=== PATIENT | male | born 1935 | race Caucasian/White ===

== ENCOUNTER 2016-02-19 10:41 | Inpatient (IN) | payer MEDICARE, OTHER ==
[2016-02-19] VITALS (29 sets, daily range): BP systolic 66–136; BP diastolic 33–106
[~2016-02-19] VITALS: Ht 170.2 cm; Wt 62.4 kg
[2016-02-19 11:08] LABS: BASO % 0.3 % (0.0-1.0); EOS # 0.1 K/mm3 (0.0-0.50); EOS % 1.8 % (0.0-3.0); LARGE UNSTAINED CELL # 0.1 K/mm3 (0.0-0.4); LARGE UNSTAINED CELL % 1.3 % (0.0-4.0); LYMPH # 0.8 K/mm3 (1.5-4.5); LYMPH % 15.6 % (24.0-44.0); MEAN CORPUSCULAR HEMOGLOBIN 32.7 pg (27.0-33.0); MEAN CORPUSCULAR HGB CONC 33.5 g/dl (32.0-36.5); MEAN CORPUSCULAR VOLUME 97.6 fl (80.0-96.0); MONO # 0.3 K/mm3 (0.0-0.8); MONO % 5.2 % (0.0-5.0); NEUTROPHILS # 3.6 K/mm3 (1.8-7.7); NEUTROPHILS % 75.8 % (36.0-66.0); PLATELET COUNT, AUTOMATED 149 k/mm3 (150-450); RED CELL DISTRIBUTION WIDTH 13.1 % (11.5-14.5); WHITE BLOOD COUNT 4.8 K/mm3 (4.0-10.0)
[2016-02-19 11:14] LABS: INR 2.64
[2016-02-19 11:45] LABS: ALBUMIN 3.2 GM/DL (3.2-5.2); ALBUMIN/GLOBULIN RATIO 0.78 (1.00-1.93); ALKALINE PHOSPHATASE 109 U/L (45-117); ALT/SGPT 17 U/L (12-78); ANION GAP 9 MEQ/L (8-16); AST/SGOT 22 U/L (15-37); BILIRUBIN,DIRECT 0.2 MG/DL (0.0-0.2); BILIRUBIN,TOTAL 0.6 MG/DL (0.2-1.0); BLOOD UREA NITROGEN 41 MG/DL (7-18); CARBON DIOXIDE LEVEL 29 MEQ/L (21-32); CHLORIDE LEVEL 102 MEQ/L (98-107); CREATININE FOR GFR 1.59 MG/DL (0.70-1.30); GLOMERULAR FILTRATION RATE 45.1 (>42); GLUCOSE, FASTING 109 MG/DL (83-110); POTASSIUM SERUM 4.2 MEQ/L (3.5-5.1); SODIUM LEVEL 140 MEQ/L (136-145); TOTAL PROTEIN 7.3 GM/DL (6.4-8.2)
[2016-02-19] MEDS ORDERED: SIMV20TA2 PO (11:46)
[2016-02-19] MEDS ORDERED: METO50TA2 PO (11:46)
[2016-02-19] MEDS ORDERED: NAME28CA PO (11:46)
[2016-02-19] MEDS ORDERED: CYAN1000VL IM (11:46)
[2016-02-19] MEDS ORDERED: ELIQ5TAB PO (11:46)
[2016-02-19] MEDS ORDERED: D400400C PO (11:46)
[2016-02-19] MEDS ORDERED: DILT240C5 PO (11:46)
[2016-02-19] MEDS ORDERED: LISI10TA4 PO (11:46)
[2016-02-19] MEDS ORDERED: FLOM5CAP PO (11:46)
--- NOTE | 2016-02-19 12:05 | REP ---
CT HEAD WITHOUT CONTRAST: HISTORY: Trauma. Areas of decreased attenuation are present in the periventricular white matter. This represents small vessel ischemic disease. There is no intraparenchymal hemorrhage, mass or midline shift. The ventricular system and cortical sulci are dilated consistent with moderate volume loss. There is no extracerebral collection. There is no fracture. The visualized sinuses are clear. IMPRESSION: 1. Small vessel ischemic disease. 2. Moderate volume loss. Signed by Yazan Valderrama MD 02/19/2016 12:08 P
[2016-02-19 12:07] LABS: AMPHETAMINES LEVEL URINE NEGATIVE (NEGATIVE); BENZODIAZEPINES URINE NEGATIVE (NEGATIVE); COCAINE METABOLITE URINE NEGATIVE (NEGATIVE); CONTROL LINE INT CTR LINE PRESENT; METHADONE URINE NEGATIVE (NEGATIVE); OPIATES URINE NEGATIVE (NEGATIVE); TRICYCLIC ANTIDEPRESS URINE NEGATIVE (NEGATIVE)
--- NOTE | 2016-02-19 13:02 | REP ---
Portable chest x-ray: Sitting AP view. History: Trauma. Findings: The patient is status post prior median sternotomy. EKG electrodes are seen. The left hemidiaphragm is somewhat elevated. There are orthopedic anchors visible in each shoulder along with degenerative arthropathy. Oxygen tubing is seen. There is mild cardiomegaly. The aorta is tortuous and a little calcific. Pulmonary vasculature is not increased. No infiltrate or pleural effusion is seen. Impression: Status post prior median sternotomy. Cardiomegaly with elevated left hemidiaphragm. No acute abnormality. Signed by Lalo Anderson MD 02/19/2016 04:50 P
[2016-02-19] MEDS ORDERED: ONDANSETRON 4 MG TAB (S0181) PO PRN (13:30)
[2016-02-19] MEDS ORDERED: NS 1,000 ML IV SCH (13:30)
[2016-02-19] MEDS ORDERED: CALCIUM GLUCONATE 1,000 MG in D5W MINI-BAG PLUS 100 ML IV ONE (13:45)
--- NOTE | 2016-02-19 14:29 | HPEPDOC ---
Medical History and Physical Date of Admission Feb 19, 2016 at 13:24 History and Physical HISTORY AND PHYSICAL Date of admission: 02/19/2016 PCP: Dr. Cottrell in [place] Chief complaint: Fell and hit his head, knew that since he is on a blood thinner he needed to come to the hospital HPI: 80-year-old male with A. fib, hyperlipidemia, carotid artery disease status post left CEA 5 days prior to admission, BPH, hypertension, dementia, CAD status post CABG who presented to the ER after a fall. He states that he was sleeping in his rocking chair, where he has been sleeping for the last 4 weeks secondary to back pain when he lays in bed, when the phone rang and he got up to answer it. He states that while he was getting up to answer, he tripped and fell. When asked directly, he does endorse some lightheadedness, but he denies any chest pain or dizziness prior to the fall. He states that he fell backward and hit his head, but did not lose consciousness. Not long after he fell, one of his friends arrived at his door to pick him up to take him to follow-up appointments for his recent CEA. The patient was able to get up and answer the door, at which point his friend noticed that he seemed a little unsteady and had a superficial abrasion on the back of his head. The friend states that within 1 hour, the patient was back to his normal self. The friend called his who is an RN, and she suggested that they come to the ER. They initially went to the [facility], but their scanner is evidently not working at the time, so he was then sent to our ER. The patient states that he now feels well, other than some pain at the back of his head. It is important to note, that the friend who is with him discovered that he has been confusing his medications. They recently got him a pillbox, and helped him fill it, but the friend noticed that while he was at his house, medicines were missing from the pillbox that should not yet have been taken. From the friends count, he believes that the patient took the following number of medications within the last 24 hours: 11 tablets of Eliquis 5 mg, 4 tablets of simvastatin 20 mg, 4 tablets of Flomax 0.4 mg, 11 tablets of metoprolol 50 mg, 4 tablets of lisinopril 10 mg, 4 tablets of diltiazem and to 40 mg, 7 tablets of Namenda 28 mg. the patient states that he currently lives alone. He never and does not have any children. He does have 1 sister who lives in the area, but she is older than him. 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 Past medical history: A. fib, hyperlipidemia, carotid artery disease status post left CEA 5 days prior to admission, BPH, hypertension, dementia, CAD status post CABG, recent urinary retention on admission for CEA with Quintanilla in place Past surgical history: Unspecified prostate surgery, left CEA 5 days prior to admission, CABG, multiple orthopedic surgeries on shoulders Family history: He states that his mother of a heart attack and had heart disease, that he is unable to recall any other health problems in his family Social history: The patient currently lives alone. He states that he drinks approximately 3 beers a year. He has not smoked cigarettes since he was 17 years old, but he does still smoke an occasional cigar. Allergies: bee venom Review of systems: General: Negative for fever and chills Eyes: Negative for vision changes and ocular discharge ENT: Negative for sore throat and nose bleed Cardiovascular: Negative for chest pain and palpitations Respiratory: Negative for cough and shortness of breath GI: Negative for nausea, vomiting, diarrhea. Positive for constipation Musculoskeletal: Positive for chronic back pain Skin: Positive for superficial abrasion on the back of his head Neuro: Negative for headache, numbness, tingling. Positive for lightheadedness. Psych: Negative for depression and suicidal ideation : Positive for urinary retention since his CEA surgery 5 days ago, currently has a Quintanilla in place. Heme: Positive for mild bleeding from the superficial abrasion on the back of his head, which has already stopped Home meds: See below Physical exam: Vital signs: Blood pressure 69/32, HR 40, temperature 96.4, O2 sat 97% on room air, RR 18 Gen.: awake, alert, no acute distress Eyes: Extraocular movements intact, normal sclera ENT: Moist mucous membranes, superficial abrasion about the size of a quarter on posterior aspect of head Cardiovascular: slow, no murmurs rubs or gallops Lungs: clear to auscultation bilaterally, no rales, rhonchi, or wheeze Abdomen: Soft, NT/ND, normal BS Extremities: No peripheral edema Neuro: alert and oriented 3, normal speech, no focal deficits Psych: Normal mood with congruent affect Labs and radiology: See below Cr 1.59 INR 2.64 EKG: Aflutter at 49 CBC, hepatic function panel, TSH, troponin, Tylenol level, aspirin level, tox screen were all within normal limits Assessment and plan: 80-year-old male with A. fib, hyperlipidemia, carotid artery disease status post left CEA 5 days prior to admission, BPH, hypertension, dementia, CAD status post CABG who presented after he fell and hit his head. He came in because he knew that since he is on Elavil twice, he needed to be checked out. Also of note, secondary to his dementia, he got confused and took too many of his medications, including a request, simvastatin, Flomax, metoprolol, lisinopril, diltiazem, Namenda. In the ER, he is noted to be hypotensive and bradycardic. 1. Hypotension and bradycardia: I believe this is all secondary to his accidental overdose of beta blockers and calcium channel blockers. Most of the time in the ER, his systolic pressure has been around 90, but when I examined him, his systolic pressure was near 70. I gave him a 500 mL bolus, with little response, and he is now receiving a second 500 mL bolus. For the most part in the ED, his heart rate has been in the 50s, but while I was examining him, his heart rate has been persistently in the 40s. At this time, he is asymptomatic, reports feeling well with no chest pain, and he is talking. We will continue to monitor him in the ICU, but should his heart rate drop much lower we will have to consider giving him some atropine. I have also given the patient a gram of calcium gluconate. He will be being monitored in the ICU, and if his pressure is noted to drop much more, we may have to consider vasopressors. 2. Head injury while on eliquis: The patient states that he hit his head after tripping. The only symptom he reports is some mild lightheadedness, but it is unclear if this lightheadedness was secondary to anything other than the fact that he recently took 11 pills of metoprolol and [address] pills [address] A CT of his head is unremarkable. At this time, we will have him on cardiac monitoring and we will check an echo. The patient does have a small abrasion on his head, but it is superficial, about the size of a quarter, and does not require any sort of suturing. I spoke with the Pharm.D. about the 55 mg eliquis he has taken in the last 24 hours. She states that the peak effect of this would probably be seen after 3-4 hours, which is likely already passed at this time. She also states that the half-life is approximately 12 hours and she expects the eliquis to clear his system in about 2-1/2 days. INR at this time is 2.67, and the patient is not currently bleeding. 3. Chronic A. fib: The patient is noted to be in A. fib here. We will be holding his home Eliquis, metoprolol, diltiazem in light of his accidental overdose. 4. Hyperlipidemia, CAD status post CABG: We are currently holding the patient's home statin and beta kathleen given his accidental overdose. 5. Carotid artery disease status post left CEA 5 days prior to admission: Patient was supposed to follow up today with his surgeon. At this time, we are holding his statin given his recent overdose. He will need to have his appointment rescheduled upon discharge. 6. Hypertension: The patient is currently hypotensive secondary to his recent overdose, so we will be holding his home beta kathleen, JM inhibitor, and calcium channel kathleen. 7. Dementia: Currently holding home Namenda secondary to recent overdose 8. BPH, recent urinary retention during admission for CEA: The patient usually takes Flomax, which we are currently holding given his recent overdose. Upon discharge from the hospital 5 days ago, he was discharged with a Quintanilla since he had experienced urinary retention during the admission. His was to follow-up with his urologist today for possible removal. At this time, we will keep the Quintanilla in place, but once his blood pressure and heart rate stabilize, it would be reasonable to remove it and give a voiding trial. 9. Elevated creatinine: There are no prior values in our EMR to determine if the patient has chronic kidney disease, however, the BUN is also slightly increased, and I suspect that he may have at least some component of acute kidney injury. The creatinine upon admission is 1.59, we will gently rehydrate the patient with normal saline as we do not currently know if he has any underlying heart failure. Continue to monitor creatinine. 10. Extra overdose: The patient lives alone. He does have someone who is helping him by filling a pillbox, but despite the pillbox, he still managed to get confused about his medications and take too many. The patient will need a different plan at discharge, either living with someone, or potentially a home health nurse who will be up to more closely manage his medications. I have consulted PFS for help with discharge planning. The patient states that he does have 1 sister who is in the area, but she is even older than him. DVT prophylaxis: SCDs Dispo: pending improvement in his blood pressure and heart rate, will potentially need a usp or to move in with someone CODE STATUS: Full code. The patient states that his older sister is his healthcare proxy and that he does have a living will. He states however, he filled it up so long ago, that he no longer remembers what it says. He did tell me that he currently would desire cardiac resuscitation as well as intubation if that were to be necessary. Admit to ICU on the service of Dr. Sanford. Vital Signs see above Laboratory Data Labs 24H Laboratory Tests 2 02/19/16 10:55: Acetaminophen Level < 2.0L, Aspartate Amino Transf (AST/SGOT) 22, Alanine Aminotransferase (ALT/SGPT) 17, Alkaline Phosphatase 109, Total Bilirubin 0.6, Direct Bilirubin 0.2, Albumin 3.2, Albumin/Globulin Ratio 0.78L, Anion Gap 9, White Blood Count 4.8, Red Blood Count 3.97L, Hemoglobin 13.0L, Hematocrit 38.8L , Mean Corpuscular Volume 97.6H, Mean Corpuscular Hemoglobin 32.7, Mean Corpuscular Hemoglobin Concent 33.5, Red Cell Distribution Width 13.1, Platelet Count 149L, Neutrophils (%) (Auto) 75.8H, Lymphocytes (%) (Auto) 15.6L, Monocytes (%) (Auto) 5.2H, Eosinophils (%) (Auto) 1.8, Basophils (%) (Auto) 0.3 , Neutrophils # (Auto) 3.6, Lymphocytes # (Auto) 0.8L, Monocytes # (Auto) 0.3, Eosinophils # (Auto) 0.1, Basophils # (Auto) 0.0, Calcium Level 9.0, Creatine Kinase MB 2.7, Creatine Kinase MB Relative Index 3.25, Glomerular Filtration Rate 45.1, Lactic Acid Level 1.8, Large Unclassified Cells # 0.1, Large Unclassified Cells % 1.3, Prothromb Time International Ratio 2.64, Prothrombin Time 28.2H, Salicylates Level < 1.7L, Thyroid Stimulating Hormone (TSH) 3.130, Total Creatine Kinase 83, Total Protein 7.3, Troponin I < 0.02 02/19/16 11:35: Urine Amphetamine Level NEGATIVE, Urine Benzodiazepines Screen NEGATIVE, Urine Cannabinoids NEGATIVE, Urine Cocaine Metabolite NEGATIVE, Urine Opiates Screen NEGATIVE, Urine Barbiturates, Qualitative NEGATIVE, Urine Methadone Screen NEGATIVE, Urine Tricyclic Antidepressants NEGATIVE 02/19/16 14:01: CBC/BMP Laboratory Tests 02/19/16 10:55 Red Blood Count 3.97 L, Mean Corpuscular Volume 97.6 H, Mean Corpuscular Hemoglobin 32.7, Mean Corpuscular Hemoglobin Concent 33.5, Red Cell Distribution Width 13.1, Neutrophils (%) (Auto) 75.8 H, Lymphocytes (%) (Auto) 15.6 L, Monocytes (%) (Auto) 5.2 H, Eosinophils (%) (Auto) 1.8, Basophils (%) ( Auto) 0.3, Neutrophils # (Auto) 3.6, Lymphocytes # (Auto) 0.8 L, Monocytes # ( Auto) 0.3, Eosinophils # (Auto) 0.1, Basophils # (Auto) 0.0 Home Medications Scheduled Apixaban Base (Eliquis) 5 Mg Tab 5 MG PO BID Cholecalciferol (Vitamin D3 400) 400 Unit Cap 400 UNIT PO DAILY Cyanocobalamin (Cyanocobalamin) 1,000 Mcg/1 Ml Inj 1,000 MCG IM QMONTH Diltiazem HCl (Diltiazem Cd) 240 Mg Cap 240 MG PO DAILY Lisinopril (Lisinopril) 10 Mg Tab 10 MG PO DAILY Memantine Hydrochloride (Namenda Xr) 28 Mg Cap 28 MG PO QHS Metoprolol Tartrate (Metoprolol Tartrate) 50 Mg Tab 50 MG PO BID Simvastatin (Simvastatin) 20 Mg Tab 20 MG PO DAILY Tamsulosin Hydrochloride (Flomax) 0.4 Mg Cap 0.4 MG PO DAILY Allergies Coded Allergies: Bee Venom (Unverified Allergy, Unknown, 02/19/16) AVE [place] Feb 19, 2016 14:29
[2016-02-19 14:58] LABS: MAGNESIUM LEVEL 2.4 MG/DL (1.8-2.4)
[2016-02-19] MEDS ORDERED: GLUCAGON FOR INJ 1 MG VIAL (J1610) As Ordered ONE ×2 (15:01→15:04)
[2016-02-19] MEDS ORDERED: ONDANSETRON 4MG/2ML VIAL (J2405) As Ordered ONE (15:24)
[2016-02-19] MEDS ORDERED: CALCIUM GLUCONATE 1,000MG/10ML VIAL (100MG/ML) (J0610) As Ordered ONE (15:26)
--- NOTE | 2016-02-19 16:02 | EDDOCDS ---
Physician Documentation [facility] Name: Julián Foster Age: 80 yrs Sex: Male : 1935 Arrival Date: 02/19/2016 Time: 10:41 Bed 2 Private MD: Disposition: 02/19/16 12:25 Hospitalization ordered by Alysia Prado for Inpatient Admission. Preliminary diagnosis are Hypotension - suspect medication induced, Atrial fibrillation and flutter - slow - suspect medication induced. - Bed requested for M ICU. - Status is Inpatient Admission. dy - Condition is Stable. - Problem is new. - Symptoms are unchanged. Historical: - Allergies: Bee Stings; - Home Meds: 1. Eliquis 5 mg oral tab 1 tab 2 times per day (Last dose: 02/19/2016) 2. simvastatin 20 mg Oral tab 1 tab once daily (Last dose: 02/19/2016) 3. tamsulosin 0.4 mg oral cp24 1 cap once daily (Last dose: 02/19/2016) 4. Metoprolol 50mg twice a day (Last dose: 02/19/2016) 5. Cyanocobal 1000mcg monthly IM (Last dose: 02/07/2016) 6. lisinopril 10 mg Oral tab 1 tab once daily (Last dose: 02/19/2016) 7. diltiazem HCl 240 mg oral CDER 1 cap once daily (Last dose: 02/19/2016) 8. Namenda oral 28mg hs oral (Last dose: 02/18/2016) 9. Vitamin D Oral 400 unit daily (Last dose: 02/19/2016) - PMHx: CAD; Hypercholesterolemia; Hypertension; Dementia; - PSHx: Left carotid endarterectomy; CABG; Bilateral rotator cuff repair; - Social history: Smoking status: Patient states former smoker of tobacco. No barriers to communication noted, The patient speaks fluent Nepali. - Family history: Not pertinent. - : The pt / caregiver states he / she is on anticoagulants: Eliquis Home medication list is obtained from the patient. - Exposure Risk Screening:: None identified. Vital Signs: 02/18 10:53 BP 95 / 45; Pulse 57; Resp 18; Temp 96.4; Pulse Ox 99% ; Weight 58.97 kg / 130.01 lbs; jlf Height 5 ft. 7 in. (170.18 cm); 11:00 BP 103 / 51 (auto/); dy 11:01 Pulse 51 MON; Pulse Ox 98% ; dy 11:15 BP 89 / 53 (auto/); dy 11:23 Pulse 50 MON; Pulse Ox 98% ; dy 11:24 BP 92 / 52 (auto/); dy 11:25 Pulse 50 MON; Pulse Ox 96% ; dy 11:30 Pulse 45 MON; Pulse Ox 96% ; dy 11:30 BP 106 / 55 (auto/); dy 11:45 Pulse 50 MON; Pulse Ox 98% ; dy 11:45 BP 101 / 52 (auto/); dy 12:00 BP 92 / 52 (auto/); dy 12:00 Pulse 40 MON; Pulse Ox 96% ; dy 12:15 BP 89 / 44 (auto/); dy 12:15 Pulse 39 MON; Pulse Ox 97% ; dy 12:30 BP 86 / 50 (auto/); dy 12:31 Pulse 40 MON; Pulse Ox 96% ; dy 12:54 BP 69 / 32 (auto/); dy 12:54 Pulse 37 MON; Pulse Ox 97% ; dy 13:00 BP 83 / 47 (auto/); dy 13:01 Pulse 37 MON; Pulse Ox 86% ; dy 13:15 BP 82 / 50 (auto/); dy 13:16 Pulse 36 MON; dy 13:30 BP 76 / 39 (auto/); dy 13:45 BP 81 / 52 (auto/); dy 13:48 Pulse 36 MON; Pulse Ox 96% ; dy 13:57 Pulse 36 MON; Pulse Ox 93% ; dy 14:00 BP 74 / 36 (auto/); Pulse 37; Resp 16; Temp 97.4(TE); Pulse Ox 96% on R/A; Pain 0/10; dy 14:28 BP 78 / 40 (auto/); dy 14:30 Pulse 35 MON; Pulse Ox 97% ; dy 14:44 BP 92 / 43 (auto/); dy 14:44 Pulse 36 MON; Pulse Ox 99% ; dy 15:22 BP 86 / 51 (auto/); dy 15:24 Pulse 44 MON; Pulse Ox 93% ; dy 15:27 BP 91 / 48 (auto/); dy 15:30 Pulse 36 MON; Pulse Ox 92% ; dy 15:37 Pulse 35 MON; dy 15:37 BP 83 / 45 (auto/); dy 15:39 Pulse 35 MON; Pulse Ox 93% ; dy 15:45 BP 85 / 43 (auto/); Pulse 36; Resp 16; Temp 98.1(TE); Pulse Ox 93% on R/A; Pain 2/10; dy 10:53 Body Mass Index 20.36 (58.97 kg, 170.18 cm) [facility] MDM: 10:45 Tile Setter Supervisor/Pulse Ox/q 15 min VS ordered. sd1 10:45 Accucheck ordered. sd1 10:45 IV Saline Lock ordered. sd1 10:45 Oxygen at 4L/Min NC or Home dosage ordered. sd1 10:45 Rhythm Strip to chart ordered. sd1 10:47 Acetaminophen Level Ordered. EDMS 10:47 CBC with Diff Ordered. EDMS 10:47 Cardiac Injury Profile Ordered. EDMS 10:47 Drug Eval Toxicology ED Only Ordered. EDMS 10:47 Liver Profile Ordered. EDMS 10:47 MED Profile Ordered. EDMS 10:47 Salicylate Level Ordered. EDMS 10:47 Thyroid Stimulating Hormone Ordered. EDMS 10:47 Troponin Ordered. EDMS 10:47 CT Head Without Contrast Ordered. EDMS 10:47 ECG WITH READING ER PHYS+CARDIAG ordered. EDMS 10:48 PT/INR Ordered. EDMS 11:00 BED REQUEST+ADM ordered. EDMS 11:58 CBC with Diff Reviewed. sd1 11:58 PT/INR Reviewed. sd1 12:11 Acetaminophen Level Reviewed. sd1 12:11 Liver Profile Reviewed. sd1 12:11 MED Profile Reviewed. sd1 12:11 Salicylate Level Reviewed. sd1 12:11 Cardiac Injury Profile Reviewed. sd1 12:11 Drug Eval Toxicology ED Only Reviewed. sd1 12:11 Thyroid Stimulating Hormone Reviewed. sd1 12:11 Troponin Reviewed. sd1 12:11 CT Head Without Contrast Reviewed. sd1 12:12 -Blood Culture (Adults Only), peripheral from different site, or from device/port/PICC sd1 etc. if present ordered. 12:12 Lactic Acid (Rob tube on ice) Ordered. EDMS 12:13 -Blood Culture Ordered. EDMS 12:18 -Blood Culture (Adults Only), peripheral from different site, or from device/port/PICC rs6 etc. if present complete. 12:21 BLOOD CULTURES Ordered. EDMS 12:30 Chest, 1 View Ordered. EDMS 13:01 NS 0.9% 500 ml IV at bolus once ordered. dy 13:12 Financial registration complete. mm15 13:14 [facility] Payment Agreement was scanned into [employer] and attached to record. mm15 13:30 MAGNESIUM LEVEL Ordered. EDMS 13:30 CARDIAC MARKER PANEL Ordered. EDMS 13:30 CARDIAC MARKER PANEL Ordered. EDMS 13:31 Admission / Observation Status ordered. EDMS 13:31 NO ADDED SALT DIET ordered. EDMS 14:16 NS 0.9% 500 ml IV at bolus once ordered. dy 14:29 ECHOCARD,DOPPLER/COLOR FLOW ordered. EDMS 15:31 Zofran 4 mg IV at bolus now; administer over at least 30 seconds/preferably over 2-5 dwg minutes ordered. 15:37 Calcium Gluconate 1 grams IVPB once over 1 hrs; add to 100mL of NS ordered. dy 15:39 Glucagon 3 mg IVP once ordered. dy Administered Medications: 13:01 Drug: NS 0.9% 500 ml [sodium chloride 0.9 % injection solution] Route: IV; Rate: bolus; dy Site: right antecubital; 13:30 Follow up: IV Status: Completed infusion; IV Intake: 500ml dy 14:13 Drug: NS 0.9% 500 ml [sodium chloride 0.9 % injection solution] Route: IV; Rate: bolus; dy Site: right antecubital; 14:45 Follow up: IV Status: Completed infusion; IV Intake: 500ml dy 15:10 Drug: Glucagon 3 mg [glucagon (human recombinant) 1 mg/mL solution for injection (3 dy mL)] Route: IVP; Site: right antecubital; 15:32 Drug: Zofran 4 mg Route: IV; Rate: bolus; Site: right antecubital; dwg 15:32 Drug: Calcium Gluconate 1 grams [calcium gluconate 100 mg/mL (10 %) intravenous dy solution] {Co-Signature: hs1 (Sarah Yarbrough RN).} Route: IVPB; Infused Over: 1 hrs; Site: right antecubital; Signatures: Dispatcher [employer] EDMS Yamileth Tineo MD MD sd1 Patrice Mcintyre RN RN dwg Jagdish Alcantar RN RN dy Angel Zazueta mm15 Niesha Ibarra, ENGINE HEAD REPAIRER ENGINE HEAD REPAIRER rs6 Sarah Yarbrough RN hs1 The chart was reviewed and I authenticate all verbal orders and agree with the evaluation and treatment provided.Attachments: 13:14 [facility] Payment Agreement mm15 MTDD
--- NOTE | 2016-02-19 16:02 | EDDOCDS ---
Nurse's Notes [facility] Name: Julián Foster Age: 80 yrs Sex: Male : 1935 Arrival Date: 02/19/2016 Time: 10:41 Bed 2 Private MD: Diagnosis: Hypotension-suspect medication induced;Atrial fibrillation and flutter-slow - suspect medication induced Presentation: 02/18 10:47 Presenting complaint: Patient states: fell, tripped on rug hitting back of head, no dwg LOC, bleeding under control. Recent left carotid endarterectomy. Yesterday was confused and states he took to many of his meds, including Eliquis. Adult Sepsis Screening: Patient has new or worsening altered mentation (1 point). Patient's respiratory rate is less than 22. Systolic blood pressure is less than or equal to 100 (1 point). Patient has a qSOFA score of 2. Patient has had recent surgery- Positive Sepsis Screen. Patient placed in exam room. Charge nurse notified. Acuity level changed due to complexity of care. 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 Suicide/Homicide risk assessment- the patient denies having any suicidal and/or homicidal ideations. Transition of care: patient was not received from another setting of care. 10:47 Acuity: NICOL Level 3 dw 10:47 Method Of Arrival: Ambulance [facility] 10:59 Care prior to arrival: See EMS report. Glucose check. 120 mg/dl. dy Triage Assessment: 10:58 General: Appears in no apparent distress, comfortable. Pain: Denies pain. dwg Historical: - Allergies: Bee Stings; - Home Meds: 1. Eliquis 5 mg oral tab 1 tab 2 times per day (Last dose: 02/19/2016) 2. simvastatin 20 mg Oral tab 1 tab once daily (Last dose: 02/19/2016) 3. tamsulosin 0.4 mg oral cp24 1 cap once daily (Last dose: 02/19/2016) 4. Metoprolol 50mg twice a day (Last dose: 02/19/2016) 5. Cyanocobal 1000mcg monthly IM (Last dose: 02/07/2016) 6. lisinopril 10 mg Oral tab 1 tab once daily (Last dose: 02/19/2016) 7. diltiazem HCl 240 mg oral CDER 1 cap once daily (Last dose: 02/19/2016) 8. Namenda oral 28mg hs oral (Last dose: 02/18/2016) 9. Vitamin D Oral 400 unit daily (Last dose: 02/19/2016) - PMHx: CAD; Hypercholesterolemia; Hypertension; Dementia; - PSHx: Left carotid endarterectomy; CABG; Bilateral rotator cuff repair; - Social history: Smoking status: Patient states former smoker of tobacco. No barriers to communication noted, The patient speaks fluent Chinese. - Family history: Not pertinent. - : The pt / caregiver states he / she is on anticoagulants: Eliquis Home medication list is obtained from the patient. - Exposure Risk Screening:: None identified. Screenin:58 Screening information is obtained from the parent, family members. Fall risk: At risk dy due to apparent cognitive impairment, prior history of falls, The following interventions are performed due to a positive Fall Risk Screen: Fall Risk is added to Special Handling on the patient Summary Screen. A Fall Risk Bracelet was applied to the patient. Side Rails are placed in the up position. A Call Farfan is given with instruction to call for help when getting out of bed. Fall Alert bracelet is placed on the patient. Assistance ADL's: requires no assistance with activities of daily living. Abuse/DV Screen: The patient / caregiver reports he/she is: not in a situation that causes fear, pain or injury. Nutritional screening: No deficits noted. Advance Directives: Currently, there is a health care proxy, Sister. There is no active DNR order. home support is adequate. Assessment: 11:56 General: Appears in no apparent distress, comfortable, Behavior is appropriate for age, dy cooperative. Pain: Denies pain. Neurological: Level of Consciousness is awake, alert, obeys commands, Oriented to person, place, time, Pupils are PERRLA. Respiratory: Airway is patent Respiratory effort is even, unlabored, Breath sounds are clear bilaterally. Derm: Skin is pink, warm & dry. Injury Description: Abrasion sustained to scalp. 13:00 General: Appears in no apparent distress, comfortable, Behavior is appropriate for age, dy cooperative. 13:00 Pain: Denies pain. Neurological: Level of Consciousness is awake, alert, obeys dy commands, Oriented to person, place, time. Respiratory: Airway is patent Respiratory effort is even, unlabored. 14:00 General: Appears in no apparent distress, comfortable, Behavior is appropriate for age, dy cooperative, pt sitting up in bed eating lunch. complains of pain to left jaw when chewing sandwich. . 14:00 Pain: Location: left mu-ism, left zygomatic area, left cheek and left mandible. dy Neurological: Level of Consciousness is awake, alert, obeys commands, Oriented to person, place, time. Respiratory: Airway is patent Respiratory effort is even, unlabored. 14:35 General: Appears in no apparent distress, comfortable, Behavior is appropriate for age, dy cooperative. 15:16 General: Appears in no apparent distress, Behavior is appropriate for age, cooperative. dy 15:16 GI: Pt is actively vomiting clear fluid, undigested food, other Dr. Prado at bedside. dy Zofran order obtained. 15:46 General: Appears in no apparent distress, comfortable, Behavior is appropriate for age, dy cooperative. Pain: Location: left mandible and left cheek and left zygomatic area and left mu-ism Pain currently is 2 out of 10 on a pain scale. Neurological: Level of Consciousness is awake, alert, obeys commands, Oriented to person, place, time. Respiratory: Airway is patent Respiratory effort is even, unlabored. Vital Signs: 10:53 BP 95 / 45; Pulse 57; Resp 18; Temp 96.4; Pulse Ox 99% ; Weight 58.97 kg; Height 5 ft. jlf 7 in. (170.18 cm); 11:00 BP 103 / 51 (auto/); dy 11:01 Pulse 51 MON; Pulse Ox 98% ; dy 11:15 BP 89 / 53 (auto/); dy 11:23 Pulse 50 MON; Pulse Ox 98% ; dy 11:24 BP 92 / 52 (auto/); dy 11:25 Pulse 50 MON; Pulse Ox 96% ; dy 11:30 Pulse 45 MON; Pulse Ox 96% ; dy 11:30 BP 106 / 55 (auto/); dy 11:45 Pulse 50 MON; Pulse Ox 98% ; dy 11:45 BP 101 / 52 (auto/); dy 12:00 BP 92 / 52 (auto/); dy 12:00 Pulse 40 MON; Pulse Ox 96% ; dy 12:15 BP 89 / 44 (auto/); dy 12:15 Pulse 39 MON; Pulse Ox 97% ; dy 12:30 BP 86 / 50 (auto/); dy 12:31 Pulse 40 MON; Pulse Ox 96% ; dy 12:54 BP 69 / 32 (auto/); dy 12:54 Pulse 37 MON; Pulse Ox 97% ; dy 13:00 BP 83 / 47 (auto/); dy 13:01 Pulse 37 MON; Pulse Ox 86% ; dy 13:15 BP 82 / 50 (auto/); dy 13:16 Pulse 36 MON; dy 13:30 BP 76 / 39 (auto/); dy 13:45 BP 81 / 52 (auto/); dy 13:48 Pulse 36 MON; Pulse Ox 96% ; dy 13:57 Pulse 36 MON; Pulse Ox 93% ; dy 14:00 BP 74 / 36 (auto/); Pulse 37; Resp 16; Temp 97.4(TE); Pulse Ox 96% on R/A; Pain 0/10; dy 14:28 BP 78 / 40 (auto/); dy 14:30 Pulse 35 MON; Pulse Ox 97% ; dy 14:44 BP 92 / 43 (auto/); dy 14:44 Pulse 36 MON; Pulse Ox 99% ; dy 15:22 BP 86 / 51 (auto/); dy 15:24 Pulse 44 MON; Pulse Ox 93% ; dy 15:27 BP 91 / 48 (auto/); dy 15:30 Pulse 36 MON; Pulse Ox 92% ; dy 15:37 Pulse 35 MON; dy 15:37 BP 83 / 45 (auto/); dy 15:39 Pulse 35 MON; Pulse Ox 93% ; dy 15:45 BP 85 / 43 (auto/); Pulse 36; Resp 16; Temp 98.1(TE); Pulse Ox 93% on R/A; Pain 2/10; dy 10:53 Body Mass Index 20.36 (58.97 kg, 170.18 cm) [facility] Vitals: 15:57 Log In Time N/A - ambulance arrival. dy ED Course: 10:42 Patient visited by Meche Cerrato, Atmospheric Drier Tender. deg 10:42 Patient moved to Waiting deg 10:43 Jagdish Alcantar, RN is Primary Nurse. deg 10:43 Patient moved to 2 deg 10:51 Triage Initiated dwg 10:52 Yamileth Tineo MD is Attending Physician. sd1 10:52 Patient visited by Yamileth Tineo MD. sd1 10:53 lunchroom monitor on. Pulse ox on. NIBP on. jlf 10:54 Patient visited by Castillo Vaz PCA. jlf 10:57 The patient / caregiver is instructed regarding the plan of care and ED course. Patient dy has correct armband on for positive identification. Placed in gown. Bed in low position. Call light in reach. Side rails up X 1. 10:57 PT/INR Sent. dy 10:57 Acetaminophen Level Sent. dy 10:57 CBC with Diff Sent. dy 10:57 Cardiac Injury Profile Sent. dy 10:57 Liver Profile Sent. dy 10:57 MED Profile Sent. dy 10:57 Salicylate Level Sent. dy 10:57 Thyroid Stimulating Hormone Sent. dy 10:57 Troponin Sent. dy 10:57 Inserted saline lock: 18 gauge in right antecubital area and blood collected. The dy patient tolerated the procedure well. Labs drawn. (by ED staff). Sent per order to lab. 10:57 EKG done. (by ED staff). Reviewed by Yamileth Tineo MD. jlf 11:05 Patient visited by Castillo Vaz PCA. jlf 11:06 Patient visited by Castillo Vaz PCA. jlf 11:38 Drug Eval Toxicology ED Only Sent. dy 11:58 Patient visited by Jagdish Alcantar, AJIT. dy 12:06 CT Head Without Contrast Returned. EDMS 12:25 Alysia Prado is Hospitalizing Provider. sd1 12:57 CT Head Without Contrast Returned. EDMS 13:14 COUNTS INCLUDE 234 BEDS AT THE [facility] Payment Agreement was scanned into [employer] and attached to record. mm15 13:49 Chest, 1 View Returned. EDMS 14:31 BLOOD CULTURES Sent. dy 15:47 Patient visited by Jagdish Alcantar, RN. dy 15:57 No procedures done that require assistance. dy Administered Medications: 13:01 Drug: NS 0.9% 500 ml [sodium chloride 0.9 % injection solution] Route: IV; Rate: bolus; dy Site: right antecubital; 13:30 Follow up: IV Status: Completed infusion; IV Intake: 500ml dy 14:13 Drug: NS 0.9% 500 ml [sodium chloride 0.9 % injection solution] Route: IV; Rate: bolus; dy Site: right antecubital; 14:45 Follow up: IV Status: Completed infusion; IV Intake: 500ml dy 15:10 Drug: Glucagon 3 mg [glucagon (human recombinant) 1 mg/mL solution for injection (3 dy mL)] Route: IVP; Site: right antecubital; 15:32 Drug: Zofran 4 mg Route: IV; Rate: bolus; Site: right antecubital; [facility] 15:32 Drug: Calcium Gluconate 1 grams [calcium gluconate 100 mg/mL (10 %) intravenous dy solution] {Co-Signature: hs1 (Sarah Yarbrough RN).} Route: IVPB; Infused Over: 1 hrs; Site: right antecubital; Intake: 13:30 IV: 500.00ml; Total: 500.00ml. dy 14:45 IV: 500.00ml; Total: 1000.00ml. dy Order Results: Lab Order: Acetaminophen Level; SPEC'M 02/19/16 10:55 Test: ACETAMINOPHEN LEVEL; Value: < 2.0; Range: 10.0-30.0; Abnormal: Below low normal; Units: UG/ML; Status: F Lab Order: CBC with Diff; SPEC'M 02/19/16 10:55 Test: WHITE BLOOD COUNT; Value: 4.8; Range: 4.0-10.0; Units: K/mm3; Status: F Test: RED BLOOD COUNT; Value: 3.97; Range: 4.30-6.10; Abnormal: Below low normal; Units: M/mm3; Status: F Test: HEMOGLOBIN; Value: 13.0; Range: 14.0-18.0; Abnormal: Below low normal; Units: g/dl; Status: F Test: HEMATOCRIT; Value: 38.8; Range: 42.0-52.0; Abnormal: Below low normal; Units: %; Status: F Test: MEAN CORPUSCULAR VOLUME; Value: 97.6; Range: 80.0-96.0; Abnormal: Above high normal; Units: fl; Status: F Test: MEAN CORPUSCULAR HEMOGLOBIN; Value: 32.7; Range: 27.0-33.0; Units: pg; Status: F Test: MEAN CORPUSCULAR HGB CONC; Value: 33.5; Range: 32.0-36.5; Units: g/dl; Status: F Test: RED CELL DISTRIBUTION WIDTH; Value: 13.1; Range: 11.5-14.5; Units: %; Status: F Test: PLATELET COUNT, AUTOMATED; Value: 149; Range: 150-450; Abnormal: Below low normal; Units: k/mm3; Status: F Test: NEUTROPHILS %; Value: 75.8; Range: 36.0-66.0; Abnormal: Above high normal; Units: %; Status: F Test: LYMPH %; Value: 15.6; Range: 24.0-44.0; Abnormal: Below low normal; Units: %; Status: F Test: MONO %; Value: 5.2; Range: 0.0-5.0; Abnormal: Above high normal; Units: %; Status: F Test: EOS %; Value: 1.8; Range: 0.0-3.0; Units: %; Status: F Test: BASO %; Value: 0.3; Range: 0.0-1.0; Units: %; Status: F Test: LARGE UNSTAINED CELL %; Value: 1.3; Range: 0.0-4.0; Units: %; Status: F Test: NEUTROPHILS #; Value: 3.6; Range: 1.8-7.7; Units: K/mm3; Status: F Test: LYMPH #; Value: 0.8; Range: 1.5-4.5; Abnormal: Below low normal; Units: K/mm3; Status: F Test: MONO #; Value: 0.3; Range: 0.0-0.8; Units: K/mm3; Status: F Test: EOS #; Value: 0.1; Range: 0.0-0.50; Units: K/mm3; Status: F Test: BASO #; Value: 0.0; Range: 0.0-0.2; Units: K/mm3; Status: F Test: LARGE UNSTAINED CELL #; Value: 0.1; Range: 0.0-0.4; Units: K/mm3; Status: F Lab Order: Cardiac Injury Profile; SPEC'M 02/19/16 10:55 Test: CPK CREATINE PHOSPHOKINASE; Value: 83; Range: 39-308; Units: U/L; Status: F Test: CK-MB VALUE MASS; Value: 2.7; Range: 0.0-3.6; Units: NG/ML; Status: F Test: MB/CK RELATIVE INDEX; Value: 3.25; Range: < OR =4; Status: F Test Note: ; DIAGNOSIS CRITERIA MMB ng/ml Relative Index (RI) NON-AMI < or = 5 N/A ROB ZONE > 5 < or = 4 AMI > 5 > 4 Lab Order: Drug Eval Toxicology ED Only; SPEC'M 02/19/16 11:35 Test: AMPHETAMINES LEVEL URINE; Value: NEGATIVE; Range: NEGATIVE; Status: F Test: BARBITURATES URINE; Value: NEGATIVE; Range: NEGATIVE; Status: F Test: BENZODIAZEPINES URINE; Value: NEGATIVE; Range: NEGATIVE; Status: F Test: CANNABINOIDS URINE; Value: NEGATIVE; Range: NEGATIVE; Status: F Test: COCAINE METABOLITE URINE; Value: NEGATIVE; Range: NEGATIVE; Status: F Test: METHADONE URINE; Value: NEGATIVE; Range: NEGATIVE; Status: F Test: OPIATES URINE; Value: NEGATIVE; Range: NEGATIVE; Status: F Test: TRICYCLIC ANTIDEPRESS URINE; Value: NEGATIVE; Range: NEGATIVE; Status: F Test Note: ; ALL PRESUMPTIVE POSITIVE FINDINGS ARE UNCONFIRMED NORMAL VALUES THRESHOLD IN NG/ML AMPHETAMINES 1000 METHAMPHETAMINES 1000 BARBITURATES 300 BENZODIAZEPINES 300 CANNABINOIDS (THC) 50 COCAINE METABOLITE 300 METHADONE 300 OPIATES 300 PHENCYCLIDINE 25 TRICYCLIC ANTIDEPRESSANTS 1000 RESULTS ARE FOR MEDICAL PURPOSES ONLY. ALL URINE SPECIMENS WILL BE SAVED FOR 3 DAYS. IF CONFIRMATION OF A PRESUMPTIVE POSTIVE SCREEN RESULT IS DESIRED, CALL CHEMISTRY ([phone]) AND REQUEST URINE TO BE SENT TO REFERENCE LAB. FOR A LIST OF CLOSELY RELATED COMPOUNDS PLEASE CALL THE LAB. Lab Order: Liver Profile; SPEC'M 02/19/16 10:55 Test: AST/SGOT; Value: 22; Range: 15-37; Units: U/L; Status: F Test: ALT/SGPT; Value: 17; Range: 12-78; Units: U/L; Status: F Test: ALKALINE PHOSPHATASE; Value: 109; Range: 45-117; Units: U/L; Status: F Test: BILIRUBIN,TOTAL; Value: 0.6; Range: 0.2-1.0; Units: MG/DL; Status: F Test: BILIRUBIN,DIRECT; Value: 0.2; Range: 0.0-0.2; Units: MG/DL; Status: F Test: TOTAL PROTEIN; Value: 7.3; Range: 6.4-8.2; Units: GM/DL; Status: F Test: ALBUMIN; Value: 3.2; Range: 3.2-5.2; Units: GM/DL; Status: F Test: ALBUMIN/GLOBULIN RATIO; Value: 0.78; Range: 1.00-1.93; Abnormal: Below low normal; Status: F Lab Order: MED Profile; [facility]' 02/19/16 10:55 Test: GLUCOSE, FASTING; Value: 109; Range: 83-110; Units: MG/DL; Status: F Test: BLOOD UREA NITROGEN; Value: 41; Range: 7-18; Abnormal: Above high normal; Units: MG/DL; Status: F Test: CREATININE FOR GFR; Value: 1.59; Range: 0.70-1.30; Abnormal: Above high normal; Units: MG/DL; Status: F Test: GLOMERULAR FILTRATION RATE; Value: 45.1; Range: >42; Status: F Test: SODIUM LEVEL; Value: 140; Range: 136-145; Units: MEQ/L; Status: F Test: POTASSIUM SERUM; Value: 4.2; Range: 3.5-5.1; Units: MEQ/L; Status: F Test: CHLORIDE LEVEL; Value: 102; Range: 98-107; Units: MEQ/L; Status: F Test: CARBON DIOXIDE LEVEL; Value: 29; Range: 21-32; Units: MEQ/L; Status: F Test: ANION GAP; Value: 9; Range: 8-16; Units: MEQ/L; Status: F Test: CALCIUM LEVEL; Value: 9.0; Range: 8.8-10.2; Units: MG/DL; Status: F Test Note: ; Units are mL/min/1.73 m2 Chronic Kidney Disease Staging per NKF: Stage I & II GFR >=60 Normal to Mildly Decreased Stage III GFR 30-59 Moderately Decreased Stage IV GFR 15-29 Severely Decreased Stage V GFR <15 Very Little GFR Left ESRD GFR <15 on TIME STUDY OBSERVER Lab Order: Salicylate Level; [facility]' 02/19/16 10:55 Test: SALICYLATE LEVEL; Value: < 1.7; Range: 5.0-30.0; Abnormal: Below low normal; Units: MG/DL; Status: F Lab Order: Thyroid Stimulating Hormone; [facility] 10:55 Test: THYROID STIMULATING HORMONE; Value: 3.130; Range: 0.358-3.740; Units: uIU/ML; Status: F Lab Order: Troponin; [facility] 02/19/16 10:55 Test: TROPONIN I; Value: < 0.02; Range: < 0.10; Units: NG/ML; Status: F Test Note: ; Troponin I Reference Interval for [employer] LOCI: 99th Percentile= 0.00-0.045 ng/ml Risk Stratification: <= 0.10 ng/ml Decreased Risk for Adverse Clinical Events. 0.10-1.50 ng/ml Increased Risk for Adverse Clinical Events. Evaluation of additional criterion and/or repeat testing in 2-6 hours is suggested to rule out myocardial damage. >= 1.50 ng/ml Indicative of Myocardial Injury. Lab Order: PT/INR; 02/19/16 10:55 Test: PROTHROMBIN TIME; Value: 28.2; Range: 12.3-14.5; Abnormal: Above high normal; Units: SECONDS; Status: F Test: INR; Value: 2.64; Status: F Test Note: ; THERAPUTIC HUMAN INR VALUES INDICATIONS NORMAL RANGES PROPHYLAXIS/TREATMENT OF: VENOUS THROMBOSIS 2.0-3.0 PULMONARY EMBOLISM 2.0-3.0 PREVENTION OF SYSTEMIC EMBOLISM FROM: TISSUE HEART VALVES 2.0-3.0 ACUTE MYOCARDIAL INFARCTION 2.0-3.0 VALVULAR HEART DISEASE 2.0-3.0 ATRIAL FIBRILLATION 2.0-3.0 MECHANICAL VALVES(HIGH RISK) 2.5-3.5 RECURRENT MYOCARDIAL INFARCTION 2.5-3.5 Lab Order: Lactic Acid (Rob tube on ice); [facility] 10:55 Test: LACTIC ACID LEVEL, LACTATE; Value: 1.8; Range: 0.4-2.0; Units: MMOL/L; Status: F Lab Order: MAGNESIUM LEVEL; [facility] 02/19/16 14:01 Test: MAGNESIUM LEVEL; Value: 2.4; Range: 1.8-2.4; Units: MG/DL; Status: F Lab Order: CARDIAC MARKER PANEL; SPEC'M 02/19/16 14:01 Test: CPK CREATINE PHOSPHOKINASE; Value: 78; Range: 39-308; Units: U/L; Status: F Test: CK-MB VALUE MASS; Value: 2.9; Range: 0.0-3.6; Units: NG/ML; Status: F Test: MB/CK RELATIVE INDEX; Value: 3.71; Range: < OR =4; Status: F Test: TROPONIN I; Value: 0.02; Range: < 0.10; Units: NG/ML; Status: F Test Note: ; DIAGNOSIS CRITERIA MMB ng/ml Relative Index (RI) NON-AMI < or = 5 N/A ROB ZONE > 5 < or = 4 AMI > 5 > 4 Radiology Order: CT Head Without Contrast Test: CT Head Without Contrast REASON FOR EXAMINATION: Trauma; CT HEAD WITHOUT CONTRAST:; ; HISTORY: Trauma.; ; Areas of decreased attenuation are present in the periventricular white matter.; This represents small vessel ischemic disease. There is no intraparenchymal; hemorrhage, mass or midline shift. The ventricular system and cortical sulci are; dilated consistent with moderate volume loss. There is no extracerebral; collection. There is no fracture. The visualized sinuses are clear.; ; IMPRESSION:; ; 1. Small vessel ischemic disease.; ; 2. Moderate volume loss.; ; ; Signed by; Yazan Valderrama MD 02/19/2016 12:08 P; Radiology Order: Chest, 1 View Test: Chest, 1 View REASON FOR EXAMINATION: Trauma; Portable chest x-ray: Sitting AP view.; ; History: Trauma.; ; Findings: The patient is status post prior median sternotomy. EKG electrodes; are seen. The left hemidiaphragm is somewhat elevated. There are orthopedic; anchors visible in each shoulder along with degenerative arthropathy. Oxygen; tubing is seen.; ; There is mild cardiomegaly. The aorta is tortuous and a little calcific.; Pulmonary vasculature is not increased. No infiltrate or pleural effusion is; seen.; ; Impression:; ; Status post prior median sternotomy. Cardiomegaly with elevated left; hemidiaphragm. No acute abnormality.; ; Unreviewed; Outcome: 12:25 Decision to Hospitalize by Provider. sd1 15:56 Discharge Assessment: patient administered narcotics - no. The following High Risk dy Discharge criteria are identified: None. Admitted to ICU accompanied by nurse, accompanied by tech, via stretcher, on monitor, with chart. critical. CT Study completed. Admission hand-off: Report called to AJIT Martinez. Property :Personal belongings accompany Pt. 16:01 Patient left the ED. dy Signatures: Dispatcher [employer] EDMS Yamileth Tineo MD MD sd1 Meche Cerrato, Atmospheric Drier Tender Unit deg Patrice Mcintyre, RN RN Jagdish Lee, RN RN dy Angel Zazueta mm15 Castillo Vaz, ORTHOPEDIC NURSE PRACTITIONER ORTHOPEDIC NURSE PRACTITIONER jlf Sarah Yarbrough RN hs1 MTDD
[2016-02-19] MEDS ORDERED: DOPamine 400 MG/500 ML BAG IN D5W (800MCG/ML) (J1265) As Ordered ONE (16:18)
[2016-02-19] MEDS: PANTOPRAZOLE 40MG TAB (PROTONIX) PO SCH (16:50)
[2016-02-19] MEDS ORDERED: GLUCAGON FOR INJ 1 MG VIAL (J1610) IV PRN (17:00)
[2016-02-19] MEDS: D5W/LR 1,000 ML IV SCH (17:36)
[2016-02-19] MEDS: GLUCAGON IV SCH ×2 (17:36→20:41)
[2016-02-19] MEDS: D5W IV SCH ×2 (17:36→20:41)
[2016-02-19] MEDS: HumaLOG INSULIN (NovoLOG) PER UNIT SC SCH ×2 (18:00→23:44)
[2016-02-19] MEDS ORDERED: PREVNAR 13 VACCINE SYRINGE (CPT CODE:90670) IM SCH (18:15)
[2016-02-19] MEDS ORDERED: INFLUENZA VIRUS VACCINE HIGH DOSE 0.5 ML SYRINGE (90662) IM SCH (18:15)
--- NOTE | 2016-02-19 18:17 | CR ---
DATE OF CONSULTATION: 02/19/2016 CONSULTATION REPORT FOR: Dr. Prado. REASON FOR CONSULTATION: Bradycardia due to drug overdose. HISTORY OF PRESENT ILLNESS: Mr. Foster is a very pleasant 80-year-old man who has chronic atrial fibrillation/flutter, coronary artery disease and peripheral vascular disease, besides others, who presented to the emergency room after a fall. It looks like he was sitting in a chair, and when he got up, he tripped and hit his head. Because he has been taking Eliquis, he knew that it potentially could be a problem. He called his friends and they came to [facility] for evaluation. Apparently, there their equipment for CT was not functional and he was transferred to our facility. Somewhere in the process, it became obvious that the patient took numerous medications by mistake. Apparently, he has a pillbox setup and there were numerous pills missing and have been presumptively taken by the patient. Based on the admission notes by Dr. Prado, it appears that he took 11 tablets of Eliquis 5 mg, four tablets of simvastatin 20 mg, four tablets of Flomax 0.4 mg, 11 tablets of metoprolol 50, four tablets of lisinopril 10, four tablets of diltiazem 240 mg, and seven tablets of Namenda 28 mg. It appears that he has taken them somewhere between yesterday and this morning. The patient has no recollection because of underlying dementia but he does admit that he may have taken additional medications because of confusion. Initially, when he came to the emergency room , he was mildly hypotensive but he was not overly bradycardic. He received boluses of normal saline and eventually got also started on central line and on a pressor by Dr. Nuñez. He currently is getting continuous infusion of IV dopamine with 20 mcg per minute and his blood pressure is in systolic high 80s and his heart rate is in mid 50s. He is currently in atrial flutter with 4:1 conduction. This actually represents improvement and he responded positively to administration of pressors. He is comfortable and has no specific complaints. PAST MEDICAL HISTORY: 1. Chronic atrial fibrillation/flutter. 2. Dyslipidemia. 3. Status post left carotid endarterectomy five days ago. 4. Benign prostatic hypertrophy (BPH). 5. Hypertension. 6. Dementia. 7. Status post coronary artery bypass graft (CABG). 8. History of urinary retention with chronic Quintanilla in place. PAST SURGICAL HISTORY: Positive for prostatectomy, left carotid endarterectomy, coronary artery bypass graft (CABG), and bilateral shoulder surgeries. FAMILY HISTORY: Apparently, his mother of myocardial infarction ([place]). He cannot recall additional family members. 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 He lives alone but does have help from friends. Apparently, there is no clear family even though supposedly there is one sister who his healthcare proxy, even though I could not independently verify that. ALLERGIES: No allergies. OUTPATIENT MEDICATIONS: Basically medications that he took extra, which means: - Eliquis 5 a day - simvastatin 20 a day - Flomax 0.4 a day - metoprolol 50 a daily - lisinopril 10 a day - diltiazem 240 a day - Namenda REVIEW OF SYSTEMS: Somewhat limited due to condition. He currently denies any headache. He denies any chest pain, even though he does admit that he had severe pain in his left gnosticism earlier today. He denies any shortness of breath. He denies palpitations. He does not feel dizzy or lightheaded or diaphoretic. He does not have any abdominal pain. He did have nausea and vomiting after he received glucagon but not currently. PHYSICAL EXAMINATION: GENERAL: On the physical examination, the patient is an elderly man who appears approximately his age. He lays in the intensive care unit (ICU) bed, does not appear any distress. He is alert and oriented and appropriate. VITAL SIGNS: Blood pressure is 88/55, heart rate is in the mid 50s as above, his saturation high 90s on two liters of oxygen by nasal cannula. NECK: His jugular venous pulse (JVP) does not appear elevated. There is a triple-lumen catheter in his right internal jugular vein. There is a bandage over his left side of his neck. LUNGS: Clear to auscultation with good air movement. HEART: Examination reveals regular rhythm with some occasional ectopy. There is a systolic murmur at the base, not more than 1/6 intensity. I do not appreciate any gallop, rub, or additional adventitial sounds. ABDOMEN: Soft. No tenderness or rebound tenderness. No hepatosplenomegaly. EXTREMITIES: No edema. Peripheral pulses are of somewhat poor volume but are palpable. I do not appreciate any atrophic defects. LABORATORY DATA: Basic metabolic panel is normal but for creatinine 1.6, glucose is 109, normal liver function tests, normal cardiac enzymes times two, albumin is 3.2.. CBC is hemoglobin 13, hematocrit 38, platelet count 149,000. His INR is 2.6. Toxicology screen is negative. Chest x-ray reveals elevated hemidiaphragm but no obvious failure. CT head reveals no hemorrhage. ECG reveals atrial flutter with bradycardic response and abnormalities suggestive of LVH. ASSESSMENT AND PLAN: Mr. Foster is a 80-year-old man who accidentally took excessive amounts of numerous medications that include Eliquis but also a beta kathleen, a calcium channel kathleen, lisinopril, and additional antihypertensive and atrioventricular (AV) manuelito blocking agents. He initially was quite bradycardic but currently has been responding well to administration of pressors. I had a discussion with Dr. Nuñez and at this point we decided not to alter management. Provided we see higher degree of AV block I will have to introduce Cordis and start temporary pacemaker. I briefly talked to the patient about this possibility and he is open if it is felt necessary. At this point though because he is responding favorably, I think that we can wait. He is monitored in the intensive care unit and so far has not had any signs to suggest high instability. PETE
--- NOTE | 2016-02-19 18:31 | CR.PDOC ---
Consultation Consultation Critical Care Consult Note Date of Consultation: 02/19/2016 Reason for Consultation: Bradycardia with hypotension secondary to beta kathleen and calcium channel kathleen overdose Referring Provider: Dr. Alysia Prado HISTORY OF PRESENT ILLNESS: Mr. Kolb is a 80-year-old male with a history of Marissa fibrillation, coronary artery disease, who recently had a carotid endarterectomy 5 days prior to admission who presented to the ED because his friend noticed that he was weak on his feet, and approximately half hour earlier he had already fallen and hit his head, and they knew that he needed to come in for evaluation since he was on blood thinners. Otherwise, the patient did not lose consciousness, and other than feeling weak, has been essentially asymptomatic so far. His friend was present in the ICU when I interviewed the patient, and does provide some of the history. The friend states that they had attempted to help the patient with his medications by buying him a pillbox, and the friend to check this pillbox prior to coming to the hospital and noticed that the patient had taken approximately 7 days worth of his nighttime medications and 4 days worth of his morning medications [id number] hours from prior to his presentation to the ED. The medications that he overdosed on were Eliquis, simvastatin, Flomax, metoprolol, lisinopril, diltiazem, and Namenda. Despite the initiation of IV fluids and IV calcium gluconate the patient continues to be bradycardic with heart rates in the 40s, and he is hypotensive with pressures in the 60s over 30s , therefore the critical care team was consulted and the patient was transferred to the ICU. ALLERGIES: Bee venom PAST MEDICAL HISTORY: Atrial fibrillation Hypertension hyperlipidemia Carotid artery disease status post left carotid endarterectomy 5 days prior to admission, Coronary artery disease status post triple bypass CABG approximately 2-3 years ago Benign prostatic hyperplasia Hypertension Dementia Urinary retention discovered approximately 5 days ago during his admission for carotid endarterectomy. PAST SURGICAL HISTORY: Prostate surgery Left carotid endarterectomy 5 days prior to admission Triple bypass CABG Multiple orthopedic surgeries on his shoulders SOCIAL HISTORY: Lives at home alone, and drinks on very seldom occasion. Smokes an occasional cigar. FAMILY HISTORY: Mother had heart disease and of heart attack REVIEW OF SYSTEMS: Constitutional: Patient denies fevers, chills, night sweats, recent weight gain/ loss. He did have some lightheadedness and weakness when he fell, but he did not lose consciousness. HEENT: Patient denies blurred or double vision, transient visual disturbances, postnasal drip, epistaxis, sore throat, difficulty chewing or swallowing food. Cardiovascular: Patient denies chest discomfort/pain, palpitations, exertional dyspnea. He has had some mild edema of the lower extremities bilaterally for approximately the past year. Respiratory: Patient denies dyspnea, wheezing, cough, hemoptysis, sputum production. Gastrointestinal: Patient denies nausea, vomiting, diarrhea, constipation, abdominal pain, melena, hematochezia, hematemesis, jaundice. : He denies having any urinary retention problems prior to its discovery during his last admission approximately 5 days ago. He has had chronic BPH for which he has been seeing a urologist for years. Endocrine: Patient denies polyuria, polydipsia, polyphagia. PHYSICAL EXAMINATION: Vitals: Temperature 96.9, pulse 40 weak and difficult to palpate in the radial, respiratory rate 16, blood pressure 82/43, pulse oximetry is 91% on room air General: Awake alert and oriented 3. He appears to be in no acute distress. HEENT: Head normocephalic, he has a 2x2 bandage on the posterior aspect of his head with some minimal bleeding, a small amount soaking into the bandage. pupils equally reactive to light and accommodation, conjunctiva are pink, sclera are nonicteric, buccal mucosa is pink and moist with no lesions in the oropharynx. Hearing is grossly intact to conversation. He does wear glasses. Respiratory: Clear to auscultation bilaterally with no wheezes, rales, or rhonchi. Cardiovascular: Bradycardia with occasional irregular beat. Abdomen: Soft, nontender, nondistended, no hepatosplenomegaly appreciated. Bowel sounds present. Quintanilla catheter is in place Extremities: Weak pulses in the radial, and difficult to palpate in the dorsalis pedis as well. He does have trace edema in the lower extremities bilaterally to the ankles, and his feet are cold to the touch bilaterally. ASSESSMENT/PLAN: 1. Bradycardia with hypotension secondary to beta kathleen, alpha-kathleen, calcium channel kathleen, and JM inhibitor overdose. 2. Renal insufficiency 3. Chronically elevated left hemidiaphragm 4. Eliquis overdose 5. Namenda overdose 6. Dementia 7. Carotid artery disease status post left carotid endarterectomy 5 days prior to admission. PLAN: We will transfer his care over to the critical care service at this time. Urgent need for vasopressors was necessary, therefore a triple-lumen catheter was placed in the right IJ. Will use dopamine as a pressor insensate also has a vasoconstrictive effects and will help counteract the alpha-kathleen effect as well. He is definitely at risk for going into AV heart block, and will need to be monitored closely. He was already given a bolus of calcium gluconate in the ED. We will start him on a glucagon drip, we will start him on D5W/lactated Ringer's. He already does have some edema in the lower extremities bilaterally , therefore we will be cautious with fluid resuscitation. We will also perform an echocardiogram. As regarding his renal insufficiency, we will continue to support his blood pressure as outlined above and continue to monitor, as far as I can tell he does not have a history of chronic renal insufficiency. As for his Eliquis overdose, he is not currently bleeding at this time with the exception of some mild oozing into the bandage on the back of his head. We will continue to monitor him at this time as there are no reversal agents for Eliquis , however, if he were to begin to have serious bleeding we will need to treat him with tranexamic acid, FFP, and platelets. Critical Care time spent excluding procedures: Approximately 1 hour and 15 minutes My preceptor for this patient encounter was physically present in the room during the encounter and was fully available. As needed, all aspects of the patient interview, examination, medical decision making process, and medical care plan development were reviewed and approved by the preceptor. Preceptor is aware and concurs with the plan as stated in the body of this note and will attest to such by his/her cosignature. I, Yaw Pandya, conducted an independent exam and history. I was at his bedside performing critical care. Patient had severe hypotension and bradycardia after unintentional multidrug overdose including high dose longa acting beta blockers , calcium channel blockers, eliquis, and jm inhibitors. He remains at high risk for developing complete av block. He will be supported Laboratory Data Labs 24H Laboratory Tests 2 02/19/16 10:55: Acetaminophen Level < 2.0L, Aspartate Amino Transf (AST/SGOT) 22, Alanine Aminotransferase (ALT/SGPT) 17, Alkaline Phosphatase 109, Total Bilirubin 0.6, Direct Bilirubin 0.2, Albumin 3.2, Albumin/Globulin Ratio 0.78L, Anion Gap 9, White Blood Count 4.8, Red Blood Count 3.97L, Hemoglobin 13.0L, Hematocrit 38.8L , Mean Corpuscular Volume 97.6H, Mean Corpuscular Hemoglobin 32.7, Mean Corpuscular Hemoglobin Concent 33.5, Red Cell Distribution Width 13.1, Platelet Count 149L, Neutrophils (%) (Auto) 75.8H, Lymphocytes (%) (Auto) 15.6L, Monocytes (%) (Auto) 5.2H, Eosinophils (%) (Auto) 1.8, Basophils (%) (Auto) 0.3 , Neutrophils # (Auto) 3.6, Lymphocytes # (Auto) 0.8L, Monocytes # (Auto) 0.3, Eosinophils # (Auto) 0.1, Basophils # (Auto) 0.0, Calcium Level 9.0, Creatine Kinase MB 2.7, Creatine Kinase MB Relative Index 3.25, Glomerular Filtration Rate 45.1, Lactic Acid Level 1.8, Large Unclassified Cells # 0.1, Large Unclassified Cells % 1.3, Prothromb Time International Ratio 2.64, Prothrombin Time 28.2H, Salicylates Level < 1.7L, Thyroid Stimulating Hormone (TSH) 3.130, Total Creatine Kinase 83, Total Protein 7.3, Troponin I < 0.02 02/19/16 11:35: Urine Amphetamine Level NEGATIVE, Urine Benzodiazepines Screen NEGATIVE, Urine Cannabinoids NEGATIVE, Urine Cocaine Metabolite NEGATIVE, Urine Opiates Screen NEGATIVE, Urine Barbiturates, Qualitative NEGATIVE, Urine Methadone Screen NEGATIVE, Urine Tricyclic Antidepressants NEGATIVE 02/19/16 14:01: Creatine Kinase MB 2.9, Creatine Kinase MB Relative Index 3.71, Total Creatine Kinase 78, Troponin I 0.02, Magnesium Level 2.4 02/19/16 17:02: Bedside Glucose (Misc Panel) 133H CBC/BMP Laboratory Tests 02/19/16 10:55 Red Blood Count 3.97 L, Mean Corpuscular Volume 97.6 H, Mean Corpuscular Hemoglobin 32.7, Mean Corpuscular Hemoglobin Concent 33.5, Red Cell Distribution Width 13.1, Neutrophils (%) (Auto) 75.8 H, Lymphocytes (%) (Auto) 15.6 L, Monocytes (%) (Auto) 5.2 H, Eosinophils (%) (Auto) 1.8, Basophils (%) ( Auto) 0.3, Neutrophils # (Auto) 3.6, Lymphocytes # (Auto) 0.8 L, Monocytes # ( Auto) 0.3, Eosinophils # (Auto) 0.1, Basophils # (Auto) 0.0 Allergies Coded Allergies: Bee Venom (Unverified Allergy, Unknown, 02/19/16) Home Medications Scheduled Apixaban Base (Eliquis) 5 Mg Tab 5 MG PO BID (Reported) Cholecalciferol (Vitamin D3 400) 400 Unit Cap 400 UNIT PO DAILY (Reported) Cyanocobalamin (Cyanocobalamin) 1,000 Mcg/1 Ml Inj 1,000 MCG IM QMONTH ( Reported) Diltiazem HCl (Diltiazem Cd) 240 Mg Cap 240 MG PO DAILY (Reported) Lisinopril (Lisinopril) 10 Mg Tab 10 MG PO DAILY (Reported) Memantine Hydrochloride (Namenda Xr) 28 Mg Cap 28 MG PO QHS (Reported) Metoprolol Tartrate (Metoprolol Tartrate) 50 Mg Tab 50 MG PO BID (Reported) Simvastatin (Simvastatin) 20 Mg Tab 20 MG PO DAILY (Reported) Tamsulosin Hydrochloride (Flomax) 0.4 Mg Cap 0.4 MG PO DAILY (Reported) LILIANA SANDHU DO Feb 19, 2016 18:31 YAW PANDYA Feb 21, 2016 08:00
--- NOTE | 2016-02-19 18:31 | REP ---
Portable chest x-ray: Single view: History: Line placement. Comparison chest x-rays from earlier this date. Findings: Left hemidiaphragm remains quite elevated as before. Cardiomegaly is observed. Prior sternotomy wires are seen. A right internal jugular line has been inserted with its tip in the expected location of the superior vena cava. There is no evidence of pneumothorax. Signed by Lalo Anderson MD 02/19/2016 07:25 P
--- NOTE | 2016-02-19 18:37 | RO ---
DATE OF PROCEDURE: 02/19/2016 PREPROCEDURE DIAGNOSIS: Hypotension. POSTPROCEDURE DIAGNOSIS: Hypotension. PROCEDURE: Right internal jugular triple lumen venous catheter. SURGEON: Dr. Adan Nuñez SPEECH INSTRUCTOR: None. ANESTHESIA: 1% subcutaneous lidocaine. The patient gave verbal consent and was determined emergent due to his hypotension, bradycardia. Determined a high risk procedure due to his recent Eliquis overdose; however, this was needed to save his life. DESCRIPTION OF PROCEDURE Right IJ was prepped and draped in a sterile manner with chlorhexidine and full barrier precaution. Right IJ was identified on ultrasound and lidocaine was introduced subcutaneously over the IJ. On the first pass, the Raulerson syringe was advanced into the right IJ with return of venous blood flow. A wire was fed through the needle, and the triple lumen catheter was placed via modified Seldinger technique. All ports returned venous blood flow and flushed easily. A central line was sutured at 15 cm. There were no observed complications. Sterile impregnated dressing was placed over the site. Chest x-ray shows good position with tip of the central line in the SVC.
[2016-02-19] MEDS: METOCLOPRAMIDE INJ 10MG/2ML VIAL (J2765) IV SCH ×2 (18:41→23:48)
[2016-02-19] MEDS: ONDANSETRON 4MG/2ML VIAL (J2405) IV PRN (18:41)
[2016-02-20] VITALS (52 sets, daily range): BP systolic 68–108; BP diastolic 33–67
[2016-02-20] MEDS: GLUCAGON IV SCH ×3 (00:01→21:46)
[2016-02-20] MEDS: D5W IV SCH ×3 (00:01→21:46)
[2016-02-20] MEDS: ONDANSETRON 4MG/2ML VIAL (J2405) IV PRN (01:24)
[2016-02-20] MEDS ORDERED: SODIUM CHLORIDE 0.9% 1000 ML IV ONE ×3 (01:30→16:45)
[2016-02-20] MEDS: D5W/LR 1,000 ML IV SCH ×2 (02:26→17:00)
[2016-02-20] MEDS: DOPamine HCL 400 MG in APPROPRIATE DILUENT 1 EA IV SCH ×3 (02:59→17:49)
[2016-02-20] MEDS: HumaLOG INSULIN (NovoLOG) PER UNIT SC SCH ×4 (05:16→21:00)
[2016-02-20 05:21] LABS: BASO % 0.3 % (0.0-1.0); EOS # 0.1 K/mm3 (0.0-0.50); EOS % 0.8 % (0.0-3.0); LARGE UNSTAINED CELL # 0.1 K/mm3 (0.0-0.4); LARGE UNSTAINED CELL % 0.8 % (0.0-4.0); LYMPH # 0.8 K/mm3 (1.5-4.5); LYMPH % 7.5 % (24.0-44.0); MEAN CORPUSCULAR HEMOGLOBIN 32.9 pg (27.0-33.0); MEAN CORPUSCULAR VOLUME 96.6 fl (80.0-96.0); MONO # 0.5 K/mm3 (0.0-0.8); MONO % 4.5 % (0.0-5.0); NEUTROPHILS # 8.7 K/mm3 (1.8-7.7); NEUTROPHILS % 86.2 % (36.0-66.0); PLATELET COUNT, AUTOMATED 176 k/mm3 (150-450); RED CELL DISTRIBUTION WIDTH 12.9 % (11.5-14.5); WHITE BLOOD COUNT 10.1 K/mm3 (4.0-10.0)
[2016-02-20] MEDS: METOCLOPRAMIDE INJ 10MG/2ML VIAL (J2765) IV SCH ×3 (05:27→17:56)
[2016-02-20 05:28] LABS: INR 2.13
[2016-02-20 06:11] LABS: CALCIUM LEVEL 8.1 MG/DL (8.8-10.2); CREATININE FOR GFR 2.16 MG/DL (0.70-1.30); GLOMERULAR FILTRATION RATE 31.6 (>42); MAGNESIUM LEVEL 1.9 MG/DL (1.8-2.4); POTASSIUM SERUM 3.9 MEQ/L (3.5-5.1)
[2016-02-20] MEDS ORDERED: NOREPINEPHRINE 4 MG/4 ML AMP As Ordered ONE (08:45)
[2016-02-20] MEDS ORDERED: CALCIUM GLUCONATE 1,000 MG in D5W MINI-BAG PLUS 100 ML IV ONE (08:45)
--- NOTE | 2016-02-20 08:58 | REP ---
PORTABLE CHEST: 02/20/2016 at 06:52 A.M.: Comparison: Portable chest x-rays 02/19/2016. Clinical history: Hypotension. Right jugular central catheter is again seen. There are sternotomy wires and clips from prior CABG. There is elevation of the left diaphragm as before. Some underlying fibrosis noted. There is some subsegmental atelectatic change along the elevated left diaphragm, increased from yesterday's studies and some patchy basilar atelectasis medial basal segment of the right lower lung. There is a thin linear line along the right lung field peripherally which could be a pleural line but there is definite lung markings lateral to it. Finding could represent a pneumothorax with anterior loculation while posterior margins of the lung are expanded. This is different than yesterday's study. It could also be a overlying gown marking. I would suggest a repeat examination be performed. A phone call is pending to the attending recoil spring winder. Impression: 1. Cardiomegaly, sternotomy, venous hypertension with some new basilar atelectatic changes bilaterally. The elevated diaphragm is unchanged. 2. Right jugular catheter unchanged. 3. Linear line along the right lateral chest wall, but with markings beyond it. This could be a loculated anterior pneumothorax or gown marking. Finding uncertain, I would recommend repeat chest. No other changes. A phone call is pending to his attending recoil spring winder. Signed by Jovi Scruggs MD 02/20/2016 04:23 P
[2016-02-20] MEDS ORDERED: NOREPINEPHRINE BITARTRATE 8 MG in D5W 500 ML IV SCH ×5 (09:00)
[2016-02-20] MEDS: PANTOPRAZOLE 40MG TAB (PROTONIX) PO SCH (09:14)
[2016-02-20] MEDS ORDERED: CALCIUM GLUCONATE 1,000 MG in D5W MINI-BAG PLUS 100 ML IV SCH (09:15)
--- NOTE | 2016-02-20 09:49 | CCN ---
DATE OF VISIT: 02/20/2016 CRITICAL CARE: 56 minutes. This excludes all procedures. HISTORY OF PRESENT ILLNESS: The patient remains on glucagon drip, heart rate now 53, blood pressure remains soft, but has good urine output. Will add Levophed as a vasopressor this morning and additional calcium gluconate. He is on D5 Lactated Ringer's (LR) and sliding scale insulin. He remains without chest discomfort or change in his baseline medication. He remains at high risk for arteriovenous (AV) block given this overdose of beta kathleen, calcium channel kathleen. He is at risk for bleeding given his overdose of Eliquis. He is in worsening renal failure this morning. He did take an overdose of angiotensin converting enzyme (JM) inhibitors. Will continue to monitor creatinine and urine output. PHYSICAL EXAMINATION VITAL SIGNS: Blood pressure is 101/53, oxygen saturation 94% on 2 liters, respiratory rate is 16, pulse is 58 and temperature is 97.1. GENERAL: Awake, alert and oriented. Affect and mood are appropriate. HEENT: Sclerae clear and anicteric. There is some heme oozing around the right intrajugular (IJ) which is dark. There is a small laceration above his occiput that has minimal bleeding. There is minimal oozing around his recent carotid endarterectomy site without development of hematoma. CARDIAC: Distant S1-S2 without audible murmur, rub or gallop. He is in a sinus bradycardia and no elevated jugular venous pulse (JVP), minimal systemic edema. PULMONARY: Decreased breath sounds throughout. No rales, rhonchi or wheezes. No dullness percussion. No accessory muscle use. ABDOMEN: Soft, nontender, nondistended. No hepatosplenomegaly. No masses or hernia. EXTREMITIES: No cyanosis, clubbing or edema. SKIN: Pale, cool and dry. No rashes, jaundice or bruising. MUSCULOSKELETAL: Significant muscle wasting. NEUROLOGIC: No unilateral weakness, tremor. LABORATORY DATA: Sodium 139, potassium 2.9, chloride 101, bicarbonate 27, BUN of 53, creatinine of 2.16, magnesium 1.9. Urine output is averaging just above 20 cc/hour. Hemoglobin is 12.9, hematocrit 37.8, platelet count 176, INR of 2.13 and white count is 10.1 this morning. Chest x-ray shows a probable skin fold on the right with some increased interstitial edema. Elevated diaphragm on the left, cardiomegaly. The tip of the IJ is in the superior vena cava (SVC). IMPRESSION: 1. Bradycardia with hypotension. The patient remains on glucagon. He is having non conducted P-waves on telemetry. Will obtain an EKG to confirm this. I am concerned about the possibility of further AV block and therefore he will remain in the intensive care unit (ICU) on glucagon. I have administered calcium gluconate this morning. I have added Levophed for his hypotension. He remains critically ill and is at risk for cardiac arrest. 2. Renal insufficiency. This is most likely secondary to angiotensin converting enzyme (JM) inhibitor overdose; however, the patient has had some hypotension. Will continue to monitor urine output. At this point in time he is euvolemic to almost hypervolemic; therefore will be cautious with fluid administration while attempting to maintain urine output. 3. Gastrointestinal (GI) prophylaxis with Protonix. 4. Deep venous thrombosis (DVT) prophylaxis, thromboembolic deterrent stockings (TEDs) and Santosh's. The patient currently has an elevated INR therefore no heparin is being administered. He had an overdose on Eliquis. I am hopeful that his hypocoagulability will be resolved within the next 24 hours. Will continue to monitor for signs of bleeding. At this point in time there is no significant signs of bleeding. 5. Hyperglycemia. Iatrogenic due to D5 lactated Ringers. He is on sliding scale insulin which will also help with his beta kathleen overdose.
--- NOTE | 2016-02-20 09:55 | REP ---
AP PORTABLE CHEST: 02/20/2016 at 09:16 AM. Comparison: Portable chest earlier this date and 02/19/2016. CLINICAL HISTORY: Question pneumothorax or artifact along right lateral chest wall. A small linear dense line with lucency on either side is no longer visible. This right lateral chest finding on the previous chest x-ray must have been artifact. There were no other interval changes. There is no pneumothorax. Signed by Jovi Scruggs MD 02/20/2016 04:25 P
[2016-02-20] MEDS: CALCIUM GLUCONATE 1,000 MG in D5W MINI-BAG PLUS 100 ML IV SCH ×2 (09:56→11:15)
[2016-02-20] MEDS: NOREPINEPHRINE BITARTRATE 8 MG in D5W 500 ML IV SCH (21:00)
[2016-02-21] VITALS (31 sets, daily range): BP systolic 86–141; BP diastolic 43–78
[2016-02-21] MEDS: METOCLOPRAMIDE INJ 10MG/2ML VIAL (J2765) IV SCH ×4 (00:15→17:16)
[2016-02-21] MEDS: D5W/LR 1,000 ML IV SCH ×2 (00:29→08:50)
[2016-02-21 05:39] LABS: BASO % 0.2 % (0.0-1.0); EOS # 0.1 K/mm3 (0.0-0.50); EOS % 1.1 % (0.0-3.0); LARGE UNSTAINED CELL # 0.1 K/mm3 (0.0-0.4); LYMPH # 0.6 K/mm3 (1.5-4.5); LYMPH % 6.3 % (24.0-44.0); MEAN CORPUSCULAR HEMOGLOBIN 32.4 pg (27.0-33.0); MEAN CORPUSCULAR HGB CONC 33.8 g/dl (32.0-36.5); MEAN CORPUSCULAR VOLUME 95.9 fl (80.0-96.0); MONO # 0.5 K/mm3 (0.0-0.8); MONO % 5.1 % (0.0-5.0); NEUTROPHILS # 8.4 K/mm3 (1.8-7.7); NEUTROPHILS % 86.3 % (36.0-66.0); PLATELET COUNT, AUTOMATED 143 k/mm3 (150-450); WHITE BLOOD COUNT 9.7 K/mm3 (4.0-10.0)
[2016-02-21 05:53] LABS: INR 2.04
[2016-02-21 06:09] LABS: CALCIUM LEVEL 7.8 MG/DL (8.8-10.2); CREATININE FOR GFR 2.17 MG/DL (0.70-1.30); GLOMERULAR FILTRATION RATE 31.5 (>42); MAGNESIUM LEVEL 1.9 MG/DL (1.8-2.4); POTASSIUM SERUM 3.5 MEQ/L (3.5-5.1)
--- NOTE | 2016-02-21 06:49 | IPN ---
DATE: 02/20/2016 Mr. Julián Foster was seen earlier today. He was supine in bed in no acute distress at rest. He was transferred yesterday from [facility]. He fell at home. Upon arrival here, his vital signs revealed a blood pressure of 95/45 with a pulse of 57, respirations 18, temperature 96.4 degrees Fahrenheit with oxygen saturation of 99% on room air. Apparently, upon reviewing his pills in the pill box, it was assumed that he has taken more medications than necessary. There were 11 tablets of Eliquis 5 mg missing as well as 4 tablets of 20 mg of simvastatin, 4 tablets of 0.4 mg of Flomax, 11 tablets of 50 mg of metoprolol, 4 tablets of 10 mg of lisinopril, and 4 tablets of diltiazem 240 mg as well as 7 tablets of Namenda 28 mg. The patient was admitted to the progressive care unit (PCU) and started on IV dopamine. Then he also has received Glucagon, calcium carbonate, calcium gluconate and this morning he was started on Levophed. Earlier today, he was on 20 mg of dopamine and this was decreased, he is now on 10 mg. His vital signs revealed he remained stable. At bedside this evening, his blood pressure was 97 mmHg systolic with a pulse of 57, in atrial flutter. His electrocardiogram on admission revealed atrial flutter with a ventricular rate of 49 beats per minute and nonspecific ST-T abnormalities. The lowest heart rate recorded was yesterday in the evening at about 35 beats per minute according to the telemetry strips. Mr. Julián Foster seems to be stable in no acute distress at rest. His urinary output seems to be fair. His blood pressure is stable on current management as well as his heart rate. He denies any chest pain, palpitations, dizziness, and is not diaphoretic. He has no orthopnea or paroxysmal nocturnal dyspnea (PND). There is no report of bleeding. On physical examination, the patient is alert and awake. He is in no acute distress at rest. Examination of the head is atraumatic. Neck is supple. No jugular venous distention (JVD). Lungs were clear bilateral on auscultation without any wheezing or crackles. The heart examination revealed irregular heart sounds without gallops. The PMI is not displaced. There is no rub. There is a systolic murmur grade 2/6 over the precordium, louder at the base of the heart/aortic valve area and also heard at the lower sternal border and at the apex with minimal radiation to the axilla. Abdomen is soft and nontender. Bowel sounds are active. Extremities revealed trace bilateral ankle edema. Neurological examination is negative for focal deficit. LABS: BMP done today revealed a sodium of 139, potassium 3.9, chloride 101, CO2 27, BUN 53, creatinine 2.1, GFR 31.6, glucose 200, calcium 8.1, and magnesium 1.9. Serum troponin is negative. TSH is 3.13. Toxicology screening was negative. PT on admission was 28.2 with an INR of 2.6 and today it was 23.9 with an INR of 2.13. CBC done today revealed a WBC of 10.1, hemoglobin 12.9, hematocrit 37.8 and platelets 176,000. IMPRESSION: 1. Bradycardia and hypotension secondary presumably to drug overdose. The patient currently is on Levophed at a small dose as well as small dose of dopamine and Glucagon and he is hemodynamically stable. His heart rate has improved and his blood pressure remains stable and will continue to monitor him. There is no reason at this present time for a temporary intravenous permanent pacemaker. The case was discussed earlier today with principal database developer covering. If there is any changes, will proceed with the insertion of the transvenous temporary wire for pacing. 2. History of atrial fibrillation/flutter, chronic, and patient was on Eliquis prior to the admission. 3. Acute kidney injury on chronic kidney disease. 4. History of hypertension. 5. History of coronary artery disease. 6. Heart murmur, probably aortic stenosis versus mitral regurgitation. I will proceed with an echocardiogram and also this will allow to assess his left ventricle. It was a pleasure to participate in the care of Mr. Julián Foster. He is once again stable from a cardiac point of view and will continue to monitor him along with you. Pleases do not hesitate to call if any questions. PETE
--- NOTE | 2016-02-21 07:35 | ECGEPIP ---
Stationary ECG Study [facility] - ED Test Date: 2016-02-19 Pat Name: SANDRA MANCILLA Department: Room: - Gender: M Torch Shearer: sarah : 1935 Requested By: Yamileth Tineo Order Number: [id number] Reading MD: Yamileth Tineo Measurements Intervals [place] Rate: 49 P: IN: 0 QRS: 56 QRSD: 110 T: -13 QT: 460 QTc: 415 Interpretive Statements ATRIAL FLUTTER/FIB WITH SLOW VENTRICULAR RESPONSE NONSPECIFIC ST & T-WAVE ABNORMALITY NO PRIOR FOR COMPARISON Electronically Signed On 02-21-2016 7:35:30 EST by Yamileth Tineo
[2016-02-21] MEDS: PANTOPRAZOLE 40MG TAB (PROTONIX) PO SCH (08:14)
[2016-02-21] MEDS: HumaLOG INSULIN (NovoLOG) PER UNIT SC SCH ×4 (08:14→21:00)
--- NOTE | 2016-02-21 08:31 | IPN ---
DATE: 02/21/2016 Mr. Foster is a 80-year-old man who presented after polysubstance intoxication, including high doses of beta blockers, calcium channel blockers and JM inhibitors. He remains in the intensive care unit (ICU) on combination of dopamine and Levophed, but he has been holding a good blood pressure. He makes good urine and his heart rate seems reasonable with typical heart rate around 58. It is atrial flutter with 4:1 conduction most of the time. He has no complaints today. Blood pressure 93/47, heart rate 58. He is afebrile and 92% on 3 liters of oxygen by nasal cannula. His fluid balance yesterday was quite positive. Documented it is approximately 6 liters. Today, he made about 200 mL of urine so far. Weight has not been documented this morning. He is alert and oriented and appropriate. 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 Lungs are though clear. Heart exam actually regular rhythm without gallop or rub. Abdomen is soft. No tenderness. Trace peripheral edema. Neurologically, besides memory issues, remains intact. LABORATORY: Hemoglobin 11.8, hematocrit 34.8, platelet count 143,000. Basic metabolic panel: Potassium 3.5, BUN 53, creatinine 2.2 and glucose 235. ASSESSMENT/PLAN: Mr. Foster is a 80-year-old man who has chronic atrial flutter and took by mistake excessive doses of Cardizem CD, metoprolol and JM inhibitor. He requires pressors to maintain his heart rate. Today, it is approximately 48 to maybe 60 hours since he took the medications, and even though some of them are long acting preparation I would hope that by now we will start seeing the effect to subside. My expectation is that within the next 24-48 hours we will be able to wean him off the pressors. The second concern is that of acute renal failure. Again, I suspect that it was related principally to low cardiac output and toxicity of high dose of JM inhibitor. Again, with vigorous hydration, I do expect that we will see gradual improvement. I do not see any evidence that he is in congestive heart failure as yet, but as the days progress, will have to what him more carefully. Further management will depend on clinical course. At this point, it does not appear likely that he will need a temporary pacemaker, but if we do not see a recovery of AV manuelito conduction, we may need to consider placement of permanent pacemaker.
--- NOTE | 2016-02-21 08:37 | REP ---
PORTABLE CHEST X-RAY: 02/21/2016 at 07:06 a.m. COMPARISON: 02/20/2016, 02/19/2016. CLINICAL HISTORY: Hypotension, dyspnea. Right jugular catheter with tip in SVC unchanged. Sternotomy wires are seen. There is cardiomegaly. Elevation of the left diaphragm and some vascular redistribution and venous hypertension noted. 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 There is some increasing air space opacity in the right medial base and above the left diaphragm suggesting some atelectasis or alveolar infiltrate/edema. Left effusion suspected versus scar. No gross right effusion. No other change. Signed by Jovi Scruggs MD 02/21/2016 04:34 P
--- NOTE | 2016-02-21 09:34 | IPNPDOC ---
Date of Service/Time Feb 19, 2016 at 10:41 Progress Note Critical Care Progress Note Critical care: 45 minutes. This excludes all procedures. Subjective: The patient this morning continues to be on glucagon 7.5 mg's per hour, norepinephrine at 3 mg per hour, D5/lactated Ringer's 100 mg per hour with sliding scale insulin coverage, dopamine 5 mg per hour, and Reglan and Zofran for nausea. He continues to be at high risk for AV block and myocardial infarction secondary to his overdose with beta blockers, calcium channel blockers, alpha blockers, and JM inhibitors. His renal function has remained stable from yesterday, however, his urine output has begun to improve. In speaking with the patient this morning, he does complain of some lightheadedness , however, he has no additional complaints. He denies any chest discomfort, palpitations, he no longer suffers from nausea, he ate a small lunch and dinner last night, and he is currently eating his breakfast this morning. He does have some increased swelling in the feet and ankles morning. Objective: General: Awake, alert, in no acute distress. HEENT: Head normocephalic, he continues to have some oozing and a bandage on the back of his head, sclera are nonicteric. Hearing is grossly intact to conversation. Left endarterectomy bandage does have some minimal soaking at the inferior edge. Right IJ dressing has not been changed head, and has soaking into the dressing as well. Respiratory: Clear to auscultation bilaterally with no wheezes, rales, or rhonchi. Cardiovascular: Tachycardic rate with occasional ectopic beats, with no rubs, gallops, or murmur. Abdomen: Soft, nontender, nondistended, no hepatosplenomegaly appreciated. Bowel sounds present. Extremities: Pulses are palpable but weak in the radial, cannot be palpated in the lower extremities. He continues to have cold feet. No evidence of clubbing or cyanosis. He now has 1-2+ pitting edema to just above the ankles. Assessment/Plan: 1. Severe Hypotension/cardiogenic shock. We will discontinue his dopamine as he is not tachycardic, but we will continue him on norepinephrine, he was only on 3 this morning which is a significant improvement from yesterday. 2. Bradycardia, which just converted over to tachycardia this morning. We will discontinue his glucagon, and dopamine at this time as it appears that his beta kathleen has now worn off 3. Renal insufficiency. Because his urinary output is improving today, there is no need for diuresis at this time, however in the future he may need diuretics on a long-term basis because of his chronic lower extremity edema. 4. Hypoxia. Likely secondary to aggressive fluid resuscitation, we will discontinue IV fluids at this time and continue to monitor. His checks x-ray appears unchanged from yesterday, and his peripheral edema is only minimally worsened. 5. Anemia. Likely secondary to dilution as he is now 6.7 L positive in fluid balance since admission. We will continue to monitor. He does not appear to have any significant bleeding at this time. 6. GI prophylaxis with Protonix. As soon as he is off of pressors and eating well and we will discontinue the Protonix however we will leave it on for today. 7. DVT prophylaxis with teds and sequentials. The patient is still at high risk of bleeding secondary to his overdose of Eliquis, his INR continues to trend down everyday. My preceptor for this patient encounter was physically present in the building room the encounter and was fully available. As needed, all aspects of the patient interview, examination, medical decision making process, and medical care plan development were reviewed and approved by the preceptor. Preceptor is aware and concurs with the plan as stated in the body of this note and will attest to such by his/her cosignature. I, Yaw Nuñez, Conducted an independent history and physical and attended his bedside urgently after being called by his primary physician. At that time his heart rate remained in the 30's and he remained severely hypotensive. I placed a central line and started dopamine urgently. Calcium gluconate was already given. He is at high risk for cardiopulmonary arrest and high grade av block. There is a possiblility he may need temoprary pacing. He will remain in the ICU until the side effects from his medication have worn off. VS, I&O, 24H, Fishbone VS, I&O, 24H, Fishbone Vital Signs Date Time Temp Pulse Resp B/P Pulse Ox O2 Delivery O2 Flow Rate FiO2 02/21/16 06:30 58 18 93/47 92 Nasal Cannula 3.0 02/21/16 04:00 96.9 I&O- Last 24 Hours up to 6 AM 02/21/16 06:00 Intake Total 6773.1 ml Output Total 720 ml Balance 6053.1 ml Laboratory Tests 2 02/20/16 11:46: Bedside Glucose (Misc Panel) 246H 02/20/16 17:52: Bedside Glucose (Misc Panel) 220H 02/20/16 21:43: Bedside Glucose (Misc Panel) 238H 02/21/16 05:09: Anion Gap 12, White Blood Count 9.7, Red Blood Count 3.63L, Hemoglobin 11.8L, Hematocrit 34.8L, Mean Corpuscular Volume 95.9, Mean Corpuscular Hemoglobin 32.4 , Mean Corpuscular Hemoglobin Concent 33.8, Red Cell Distribution Width 13.0, Platelet Count 143L, Neutrophils (%) (Auto) 86.3H, Lymphocytes (%) (Auto) 6.3L, Monocytes (%) (Auto) 5.1H, Eosinophils (%) (Auto) 1.1, Basophils (%) (Auto) 0.2 , Neutrophils # (Auto) 8.4H, Lymphocytes # (Auto) 0.6L, Monocytes # (Auto) 0.5, Eosinophils # (Auto) 0.1, Basophils # (Auto) 0.0, Blood Urea Nitrogen 53H, Creatinine 2.17H, Sodium Level 138, Potassium Level 3.5, Chloride Level 104, Carbon Dioxide Level 22, Calcium Level 7.8L, Glomerular Filtration Rate 31.5L, Large Unclassified Cells # 0.1, Large Unclassified Cells % 1.0, Magnesium Level 1.9, Prothromb Time International Ratio 2.04, Prothrombin Time 23.1H Laboratory Tests 02/21/16 05:09 Calcium Level 7.8 L, Red Blood Count 3.63 L, Mean Corpuscular Volume 95.9, Mean Corpuscular Hemoglobin 32.4, Mean Corpuscular Hemoglobin Concent 33.8, Red Cell Distribution Width 13.0, Neutrophils (%) (Auto) 86.3 H, Lymphocytes (%) (Auto) 6.3 L, Monocytes (%) (Auto) 5.1 H, Eosinophils (%) (Auto) 1.1, Basophils (%) ( Auto) 0.2, Neutrophils # (Auto) 8.4 H, Lymphocytes # (Auto) 0.6 L, Monocytes # ( Auto) 0.5, Eosinophils # (Auto) 0.1, Basophils # (Auto) 0.0 Microbiology 02/19/16 Blood Culture - Preliminary, Resulted No growth after 24 hours . All specim... 02/19/16 Blood Culture - Preliminary, Resulted No growth after 24 hours . All specim... 02/20/16 MRSA Screen - Final, Complete Microbiology Microbiology 02/19/16 Blood Culture - Preliminary, Resulted No growth after 24 hours . All specim... 02/19/16 Blood Culture - Preliminary, Resulted No growth after 24 hours . All specim... 02/20/16 MRSA Screen - Final, Complete LILIANA SANDHU DO Feb 21, 2016 09:34 YAW NUÑEZ Feb 25, 2016 12:22
[2016-02-21] MEDS: NOREPINEPHRINE BITARTRATE 8 MG in D5W 500 ML IV SCH (13:00)
[2016-02-21] MEDS ORDERED: METOPROLOL TART 25 MG TABLET PO ONE (16:45)
--- NOTE | 2016-02-21 17:02 | EDDOCDS ---
Nurse's Notes [facility] Name: Julián Foster Age: 80 yrs Sex: Male : 1935 Arrival Date: 02/19/2016 Time: 10:41 Bed 2 Private MD: Diagnosis: Hypotension-suspect medication induced;Atrial fibrillation and flutter-slow - suspect medication induced Presentation: 02/18 10:47 Presenting complaint: Patient states: fell, tripped on rug hitting back of head, no dwg LOC, bleeding under control. Recent left carotid endarterectomy. Yesterday was confused and states he took to many of his meds, including Eliquis. Adult Sepsis Screening: Patient has new or worsening altered mentation (1 point). Patient's respiratory rate is less than 22. Systolic blood pressure is less than or equal to 100 (1 point). Patient has a qSOFA score of 2. Patient has had recent surgery- Positive Sepsis Screen. Patient placed in exam room. Charge nurse notified. Acuity level changed due to complexity of care. Status: Patient is not a financial services officer or dependent. Suicide/Homicide risk assessment- the patient denies having any suicidal and/or homicidal ideations. Transition of care: patient was not received from another setting of care. 10:47 Acuity: NICOL Level 3 dw 10:47 Method Of Arrival: Ambulance [facility] 10:59 Care prior to arrival: See EMS report. Glucose check. 120 mg/dl. dy Triage Assessment: 10:58 General: Appears in no apparent distress, comfortable. Pain: Denies pain. dwg Historical: - Allergies: Bee Stings; - Home Meds: 1. Eliquis 5 mg oral tab 1 tab 2 times per day (Last dose: 02/19/2016) 2. simvastatin 20 mg Oral tab 1 tab once daily (Last dose: 02/19/2016) 3. tamsulosin 0.4 mg oral cp24 1 cap once daily (Last dose: 02/19/2016) 4. Metoprolol 50mg twice a day (Last dose: 02/19/2016) 5. Cyanocobal 1000mcg monthly IM (Last dose: 02/07/2016) 6. lisinopril 10 mg Oral tab 1 tab once daily (Last dose: 02/19/2016) 7. diltiazem HCl 240 mg oral CDER 1 cap once daily (Last dose: 02/19/2016) 8. Namenda oral 28mg hs oral (Last dose: 02/18/2016) 9. Vitamin D Oral 400 unit daily (Last dose: 02/19/2016) - PMHx: CAD; Hypercholesterolemia; Hypertension; Dementia; - PSHx: Left carotid endarterectomy; CABG; Bilateral rotator cuff repair; - Social history: Smoking status: Patient states former smoker of tobacco. No barriers to communication noted, The patient speaks fluent Bulgarian. - Family history: Not pertinent. - : The pt / caregiver states he / she is on anticoagulants: Eliquis Home medication list is obtained from the patient. - Exposure Risk Screening:: None identified. Screenin:58 Screening information is obtained from the parent, family members. Fall risk: At risk dy due to apparent cognitive impairment, prior history of falls, The following interventions are performed due to a positive Fall Risk Screen: Fall Risk is added to Special Handling on the patient Summary Screen. A Fall Risk Bracelet was applied to the patient. Side Rails are placed in the up position. A Call Farfan is given with instruction to call for help when getting out of bed. Fall Alert bracelet is placed on the patient. Assistance ADL's: requires no assistance with activities of daily living. Abuse/DV Screen: The patient / caregiver reports he/she is: not in a situation that causes fear, pain or injury. Nutritional screening: No deficits noted. Advance Directives: Currently, there is a health care proxy, Sister. There is no active DNR order. home support is adequate. Assessment: 11:56 General: Appears in no apparent distress, comfortable, Behavior is appropriate for age, dy cooperative. Pain: Denies pain. Neurological: Level of Consciousness is awake, alert, obeys commands, Oriented to person, place, time, Pupils are PERRLA. Respiratory: Airway is patent Respiratory effort is even, unlabored, Breath sounds are clear bilaterally. Derm: Skin is pink, warm & dry. Injury Description: Abrasion sustained to scalp. 13:00 General: Appears in no apparent distress, comfortable, Behavior is appropriate for age, dy cooperative. 13:00 Pain: Denies pain. Neurological: Level of Consciousness is awake, alert, obeys dy commands, Oriented to person, place, time. Respiratory: Airway is patent Respiratory effort is even, unlabored. 14:00 General: Appears in no apparent distress, comfortable, Behavior is appropriate for age, dy cooperative, pt sitting up in bed eating lunch. complains of pain to left jaw when chewing sandwich. . 14:00 Pain: Location: left latter-day, left zygomatic area, left cheek and left mandible. dy Neurological: Level of Consciousness is awake, alert, obeys commands, Oriented to person, place, time. Respiratory: Airway is patent Respiratory effort is even, unlabored. 14:35 General: Appears in no apparent distress, comfortable, Behavior is appropriate for age, dy cooperative. 15:16 General: Appears in no apparent distress, Behavior is appropriate for age, cooperative. dy 15:16 GI: Pt is actively vomiting clear fluid, undigested food, other Dr. Prado at bedside. dy Zofran order obtained. 15:46 General: Appears in no apparent distress, comfortable, Behavior is appropriate for age, dy cooperative. Pain: Location: left mandible and left cheek and left zygomatic area and left latter-day Pain currently is 2 out of 10 on a pain scale. Neurological: Level of Consciousness is awake, alert, obeys commands, Oriented to person, place, time. Respiratory: Airway is patent Respiratory effort is even, unlabored. Vital Signs: 10:53 BP 95 / 45; Pulse 57; Resp 18; Temp 96.4; Pulse Ox 99% ; Weight 58.97 kg; Height 5 ft. jlf 7 in. (170.18 cm); 11:00 BP 103 / 51 (auto/); dy 11:01 Pulse 51 MON; Pulse Ox 98% ; dy 11:15 BP 89 / 53 (auto/); dy 11:23 Pulse 50 MON; Pulse Ox 98% ; dy 11:24 BP 92 / 52 (auto/); dy 11:25 Pulse 50 MON; Pulse Ox 96% ; dy 11:30 Pulse 45 MON; Pulse Ox 96% ; dy 11:30 BP 106 / 55 (auto/); dy 11:45 Pulse 50 MON; Pulse Ox 98% ; dy 11:45 BP 101 / 52 (auto/); dy 12:00 BP 92 / 52 (auto/); dy 12:00 Pulse 40 MON; Pulse Ox 96% ; dy 12:15 BP 89 / 44 (auto/); dy 12:15 Pulse 39 MON; Pulse Ox 97% ; dy 12:30 BP 86 / 50 (auto/); dy 12:31 Pulse 40 MON; Pulse Ox 96% ; dy 12:54 BP 69 / 32 (auto/); dy 12:54 Pulse 37 MON; Pulse Ox 97% ; dy 13:00 BP 83 / 47 (auto/); dy 13:01 Pulse 37 MON; Pulse Ox 86% ; dy 13:15 BP 82 / 50 (auto/); dy 13:16 Pulse 36 MON; dy 13:30 BP 76 / 39 (auto/); dy 13:45 BP 81 / 52 (auto/); dy 13:48 Pulse 36 MON; Pulse Ox 96% ; dy 13:57 Pulse 36 MON; Pulse Ox 93% ; dy 14:00 BP 74 / 36 (auto/); Pulse 37; Resp 16; Temp 97.4(TE); Pulse Ox 96% on R/A; Pain 0/10; dy 14:28 BP 78 / 40 (auto/); dy 14:30 Pulse 35 MON; Pulse Ox 97% ; dy 14:44 BP 92 / 43 (auto/); dy 14:44 Pulse 36 MON; Pulse Ox 99% ; dy 15:22 BP 86 / 51 (auto/); dy 15:24 Pulse 44 MON; Pulse Ox 93% ; dy 15:27 BP 91 / 48 (auto/); dy 15:30 Pulse 36 MON; Pulse Ox 92% ; dy 15:37 Pulse 35 MON; dy 15:37 BP 83 / 45 (auto/); dy 15:39 Pulse 35 MON; Pulse Ox 93% ; dy 15:45 BP 85 / 43 (auto/); Pulse 36; Resp 16; Temp 98.1(TE); Pulse Ox 93% on R/A; Pain 2/10; dy 10:53 Body Mass Index 20.36 (58.97 kg, 170.18 cm) [facility] Vitals: 15:57 Log In Time N/A - ambulance arrival. dy ED Course: 10:42 Patient visited by Meche Cerrato, College Counselor. deg 10:42 Patient moved to Waiting deg 10:43 Jagdish Alcantar, RN is Primary Nurse. deg 10:43 Patient moved to 2 deg 10:51 Triage Initiated dwg 10:52 Yamileth Tineo MD is Attending Physician. sd1 10:52 Patient visited by Yamileth Tineo MD. sd1 10:53 monitor and storage bin tender on. Pulse ox on. NIBP on. jlf 10:54 Patient visited by Castillo Vaz PCA. jlf 10:57 The patient / caregiver is instructed regarding the plan of care and ED course. Patient dy has correct armband on for positive identification. Placed in gown. Bed in low position. Call light in reach. Side rails up X 1. 10:57 PT/INR Sent. dy 10:57 Acetaminophen Level Sent. dy 10:57 CBC with Diff Sent. dy 10:57 Cardiac Injury Profile Sent. dy 10:57 Liver Profile Sent. dy 10:57 MED Profile Sent. dy 10:57 Salicylate Level Sent. dy 10:57 Thyroid Stimulating Hormone Sent. dy 10:57 Troponin Sent. dy 10:57 Inserted saline lock: 18 gauge in right antecubital area and blood collected. The dy patient tolerated the procedure well. Labs drawn. (by ED staff). Sent per order to lab. 10:57 EKG done. (by ED staff). Reviewed by Yamileth Tineo MD. jlf 11:05 Patient visited by Castillo Vaz PCA. jlf 11:06 Patient visited by Castillo Vaz PCA. jlf 11:38 Drug Eval Toxicology ED Only Sent. dy 11:58 Patient visited by Jagdish Alcantar, RN. dy 12:06 CT Head Without Contrast Returned. EDMS 12:25 Alysia Prado is Hospitalizing Provider. sd1 12:57 CT Head Without Contrast Returned. EDMS 13:14 [facility] Payment Agreement was scanned into [employer] and attached to record. mm15 13:49 Chest, 1 View Returned. EDMS 14:31 BLOOD CULTURES Sent. dy 15:47 Patient visited by Jagdish Alcantar, RN. dy 15:57 No procedures done that require assistance. dy 02/19 01:21 T-Sheet-- Draft Copy was scanned into [employer] and attached to record. lja 08:15 PCR was scanned into [employer] and attached to record. gb 08:16 ECG/EKG was scanned into [employer] and attached to record. gb Administered Medications: 02/18 13:01 Drug: NS 0.9% 500 ml [sodium chloride 0.9 % injection solution] Route: IV; Rate: bolus; dy Site: right antecubital; 13:30 Follow up: IV Status: Completed infusion; IV Intake: 500ml dy 14:13 Drug: NS 0.9% 500 ml [sodium chloride 0.9 % injection solution] Route: IV; Rate: bolus; dy Site: right antecubital; 14:45 Follow up: IV Status: Completed infusion; IV Intake: 500ml dy 15:10 Drug: Glucagon 3 mg [glucagon (human recombinant) 1 mg/mL solution for injection (3 dy mL)] Route: IVP; Site: right antecubital; 15:32 Drug: Zofran 4 mg Route: IV; Rate: bolus; Site: right antecubital; [facility] 15:32 Drug: Calcium Gluconate 1 grams [calcium gluconate 100 mg/mL (10 %) intravenous dy solution] {Co-Signature: hs1 (Sarah Yarbrough RN).} Route: IVPB; Infused Over: 1 hrs; Site: right antecubital; Intake: 13:30 IV: 500.00ml; Total: 500.00ml. dy 14:45 IV: 500.00ml; Total: 1000.00ml. dy Order Results: Lab Order: Acetaminophen Level; SPEC'M 02/19/16 10:55 Test: ACETAMINOPHEN LEVEL; Value: < 2.0; Range: 10.0-30.0; Abnormal: Below low normal; Units: UG/ML; Status: F Lab Order: CBC with Diff; SPEC'M 02/19/16 10:55 Test: WHITE BLOOD COUNT; Value: 4.8; Range: 4.0-10.0; Units: K/mm3; Status: F Test: RED BLOOD COUNT; Value: 3.97; Range: 4.30-6.10; Abnormal: Below low normal; Units: M/mm3; Status: F Test: HEMOGLOBIN; Value: 13.0; Range: 14.0-18.0; Abnormal: Below low normal; Units: g/dl; Status: F Test: HEMATOCRIT; Value: 38.8; Range: 42.0-52.0; Abnormal: Below low normal; Units: %; Status: F Test: MEAN CORPUSCULAR VOLUME; Value: 97.6; Range: 80.0-96.0; Abnormal: Above high normal; Units: fl; Status: F Test: MEAN CORPUSCULAR HEMOGLOBIN; Value: 32.7; Range: 27.0-33.0; Units: pg; Status: F Test: MEAN CORPUSCULAR HGB CONC; Value: 33.5; Range: 32.0-36.5; Units: g/dl; Status: F Test: RED CELL DISTRIBUTION WIDTH; Value: 13.1; Range: 11.5-14.5; Units: %; Status: F Test: PLATELET COUNT, AUTOMATED; Value: 149; Range: 150-450; Abnormal: Below low normal; Units: k/mm3; Status: F Test: NEUTROPHILS %; Value: 75.8; Range: 36.0-66.0; Abnormal: Above high normal; Units: %; Status: F Test: LYMPH %; Value: 15.6; Range: 24.0-44.0; Abnormal: Below low normal; Units: %; Status: F Test: MONO %; Value: 5.2; Range: 0.0-5.0; Abnormal: Above high normal; Units: %; Status: F Test: EOS %; Value: 1.8; Range: 0.0-3.0; Units: %; Status: F Test: BASO %; Value: 0.3; Range: 0.0-1.0; Units: %; Status: F Test: LARGE UNSTAINED CELL %; Value: 1.3; Range: 0.0-4.0; Units: %; Status: F Test: NEUTROPHILS #; Value: 3.6; Range: 1.8-7.7; Units: K/mm3; Status: F Test: LYMPH #; Value: 0.8; Range: 1.5-4.5; Abnormal: Below low normal; Units: K/mm3; Status: F Test: MONO #; Value: 0.3; Range: 0.0-0.8; Units: K/mm3; Status: F Test: EOS #; Value: 0.1; Range: 0.0-0.50; Units: K/mm3; Status: F Test: BASO #; Value: 0.0; Range: 0.0-0.2; Units: K/mm3; Status: F Test: LARGE UNSTAINED CELL #; Value: 0.1; Range: 0.0-0.4; Units: K/mm3; Status: F Lab Order: Cardiac Injury Profile; SPEC'M 02/19/16 10:55 Test: CPK CREATINE PHOSPHOKINASE; Value: 83; Range: 39-308; Units: U/L; Status: F Test: CK-MB VALUE MASS; Value: 2.7; Range: 0.0-3.6; Units: NG/ML; Status: F Test: MB/CK RELATIVE INDEX; Value: 3.25; Range: < OR =4; Status: F Test Note: ; DIAGNOSIS CRITERIA MMB ng/ml Relative Index (RI) NON-AMI < or = 5 N/A ROB ZONE > 5 < or = 4 AMI > 5 > 4 Lab Order: Drug Eval Toxicology ED Only; SPEC'M 02/19/16 11:35 Test: AMPHETAMINES LEVEL URINE; Value: NEGATIVE; Range: NEGATIVE; Status: F Test: BARBITURATES URINE; Value: NEGATIVE; Range: NEGATIVE; Status: F Test: BENZODIAZEPINES URINE; Value: NEGATIVE; Range: NEGATIVE; Status: F Test: CANNABINOIDS URINE; Value: NEGATIVE; Range: NEGATIVE; Status: F Test: COCAINE METABOLITE URINE; Value: NEGATIVE; Range: NEGATIVE; Status: F Test: METHADONE URINE; Value: NEGATIVE; Range: NEGATIVE; Status: F Test: OPIATES URINE; Value: NEGATIVE; Range: NEGATIVE; Status: F Test: TRICYCLIC ANTIDEPRESS URINE; Value: NEGATIVE; Range: NEGATIVE; Status: F Test Note: ; ALL PRESUMPTIVE POSITIVE FINDINGS ARE UNCONFIRMED NORMAL VALUES THRESHOLD IN NG/ML AMPHETAMINES 1000 METHAMPHETAMINES 1000 BARBITURATES 300 BENZODIAZEPINES 300 CANNABINOIDS (THC) 50 COCAINE METABOLITE 300 METHADONE 300 OPIATES 300 PHENCYCLIDINE 25 TRICYCLIC ANTIDEPRESSANTS 1000 RESULTS ARE FOR MEDICAL PURPOSES ONLY. ALL URINE SPECIMENS WILL BE SAVED FOR 3 DAYS. IF CONFIRMATION OF A PRESUMPTIVE POSTIVE SCREEN RESULT IS DESIRED, CALL CHEMISTRY ([phone]) AND REQUEST URINE TO BE SENT TO REFERENCE LAB. FOR A LIST OF CLOSELY RELATED COMPOUNDS PLEASE CALL THE LAB. Lab Order: Liver Profile; SPEC'M 02/19/16 10:55 Test: AST/SGOT; Value: 22; Range: 15-37; Units: U/L; Status: F Test: ALT/SGPT; Value: 17; Range: 12-78; Units: U/L; Status: F Test: ALKALINE PHOSPHATASE; Value: 109; Range: 45-117; Units: U/L; Status: F Test: BILIRUBIN,TOTAL; Value: 0.6; Range: 0.2-1.0; Units: MG/DL; Status: F Test: BILIRUBIN,DIRECT; Value: 0.2; Range: 0.0-0.2; Units: MG/DL; Status: F Test: TOTAL PROTEIN; Value: 7.3; Range: 6.4-8.2; Units: GM/DL; Status: F Test: ALBUMIN; Value: 3.2; Range: 3.2-5.2; Units: GM/DL; Status: F Test: ALBUMIN/GLOBULIN RATIO; Value: 0.78; Range: 1.00-1.93; Abnormal: Below low normal; Status: F Lab Order: MED Profile; [facility] 02/19/16 10:55 Test: GLUCOSE, FASTING; Value: 109; Range: 83-110; Units: MG/DL; Status: F Test: BLOOD UREA NITROGEN; Value: 41; Range: 7-18; Abnormal: Above high normal; Units: MG/DL; Status: F Test: CREATININE FOR GFR; Value: 1.59; Range: 0.70-1.30; Abnormal: Above high normal; Units: MG/DL; Status: F Test: GLOMERULAR FILTRATION RATE; Value: 45.1; Range: >42; Status: F Test: SODIUM LEVEL; Value: 140; Range: 136-145; Units: MEQ/L; Status: F Test: POTASSIUM SERUM; Value: 4.2; Range: 3.5-5.1; Units: MEQ/L; Status: F Test: CHLORIDE LEVEL; Value: 102; Range: 98-107; Units: MEQ/L; Status: F Test: CARBON DIOXIDE LEVEL; Value: 29; Range: 21-32; Units: MEQ/L; Status: F Test: ANION GAP; Value: 9; Range: 8-16; Units: MEQ/L; Status: F Test: CALCIUM LEVEL; Value: 9.0; Range: 8.8-10.2; Units: MG/DL; Status: F Test Note: ; Units are mL/min/1.73 m2 Chronic Kidney Disease Staging per NKF: Stage I & II GFR >=60 Normal to Mildly Decreased Stage III GFR 30-59 Moderately Decreased Stage IV GFR 15-29 Severely Decreased Stage V GFR <15 Very Little GFR Left ESRD GFR <15 on [employer]TERN[employer] Lab Order: Salicylate Level; [facility] 02/19/16 10:55 Test: SALICYLATE LEVEL; Value: < 1.7; Range: 5.0-30.0; Abnormal: Below low normal; Units: MG/DL; Status: F Lab Order: Thyroid Stimulating Hormone; [facility] 02/19/16 10:55 Test: THYROID STIMULATING HORMONE; Value: 3.130; Range: 0.358-3.740; Units: uIU/ML; Status: F Lab Order: Troponin; [facility] 02/19/16 10:55 Test: TROPONIN I; Value: < 0.02; Range: < 0.10; Units: NG/ML; Status: F Test Note: ; Troponin I Reference Interval for EDF [employer] LOCI: 99th Percentile= 0.00-0.045 ng/ml Risk Stratification: <= 0.10 ng/ml Decreased Risk for Adverse Clinical Events. 0.10-1.50 ng/ml Increased Risk for Adverse Clinical Events. Evaluation of additional criterion and/or repeat testing in 2-6 hours is suggested to rule out myocardial damage. >= 1.50 ng/ml Indicative of Myocardial Injury. Lab Order: PT/INR; [facility] 02/19/16 10:55 Test: PROTHROMBIN TIME; Value: 28.2; Range: 12.3-14.5; Abnormal: Above high normal; Units: SECONDS; Status: F Test: INR; Value: 2.64; Status: F Test Note: ; THERAPUTIC HUMAN INR VALUES INDICATIONS NORMAL RANGES PROPHYLAXIS/TREATMENT OF: VENOUS THROMBOSIS 2.0-3.0 PULMONARY EMBOLISM 2.0-3.0 PREVENTION OF SYSTEMIC EMBOLISM FROM: TISSUE HEART VALVES 2.0-3.0 ACUTE MYOCARDIAL INFARCTION 2.0-3.0 VALVULAR HEART DISEASE 2.0-3.0 ATRIAL FIBRILLATION 2.0-3.0 MECHANICAL VALVES(HIGH RISK) 2.5-3.5 RECURRENT MYOCARDIAL INFARCTION 2.5-3.5 Lab Order: Lactic Acid (Rob tube on ice); [facility] 02/19/16 10:55 Test: LACTIC ACID LEVEL, LACTATE; Value: 1.8; Range: 0.4-2.0; Units: MMOL/L; Status: F Lab Order: MAGNESIUM LEVEL; SPEC'M 02/19/16 14:01 Test: MAGNESIUM LEVEL; Value: 2.4; Range: 1.8-2.4; Units: MG/DL; Status: F Lab Order: CARDIAC MARKER PANEL; SPEC'M 02/19/16 14:01 Test: CPK CREATINE PHOSPHOKINASE; Value: 78; Range: 39-308; Units: U/L; Status: F Test: CK-MB VALUE MASS; Value: 2.9; Range: 0.0-3.6; Units: NG/ML; Status: F Test: MB/CK RELATIVE INDEX; Value: 3.71; Range: < OR =4; Status: F Test: TROPONIN I; Value: 0.02; Range: < 0.10; Units: NG/ML; Status: F Test Note: ; DIAGNOSIS CRITERIA MMB ng/ml Relative Index (RI) NON-AMI < or = 5 N/A ROB ZONE > 5 < or = 4 AMI > 5 > 4 Radiology Order: CT Head Without Contrast Test: CT Head Without Contrast REASON FOR EXAMINATION: Trauma; CT HEAD WITHOUT CONTRAST:; ; HISTORY: Trauma.; ; Areas of decreased attenuation are present in the periventricular white matter.; This represents small vessel ischemic disease. There is no intraparenchymal; hemorrhage, mass or midline shift. The ventricular system and cortical sulci are; dilated consistent with moderate volume loss. There is no extracerebral; collection. There is no fracture. The visualized sinuses are clear.; ; IMPRESSION:; ; 1. Small vessel ischemic disease.; ; 2. Moderate volume loss.; ; ; Signed by; Yazan Valderrama MD 02/19/2016 12:08 P; Radiology Order: Chest, 1 View Test: Chest, 1 View REASON FOR EXAMINATION: Trauma; Portable chest x-ray: Sitting AP view.; ; History: Trauma.; ; Findings: The patient is status post prior median sternotomy. EKG electrodes; are seen. The left hemidiaphragm is somewhat elevated. There are orthopedic; anchors visible in each shoulder along with degenerative arthropathy. Oxygen; tubing is seen.; ; There is mild cardiomegaly. The aorta is tortuous and a little calcific.; Pulmonary vasculature is not increased. No infiltrate or pleural effusion is; seen.; ; Impression:; ; Status post prior median sternotomy. Cardiomegaly with elevated left; hemidiaphragm. No acute abnormality.; ; Unreviewed; Outcome: 12:25 Decision to Hospitalize by Provider. sd1 15:56 Discharge Assessment: patient administered narcotics - no. The following High Risk dy Discharge criteria are identified: None. Admitted to ICU accompanied by nurse, accompanied by tech, via stretcher, on monitor, with chart. critical. CT Study completed. Admission hand-off: Report called to AJIT Martinez. Property :Personal belongings accompany Pt. 16:01 Patient left the ED. dy Signatures: Dispatcher [employer] EDMS Yamileth Tineo MD MD sd1 Meche Cerrato, College Counselor Unit deg Patrice Mcintyre, RN RN dwg Kennedi Cobb, Ilan Reg Jagdish Pacheco, RN AJIT dy Angel Zazueta mm15 Castillo Vaz, APPLICATION TRAINER APPLICATION TRAINER Ryann Tuttle RN hs1 Chart Complete MTDD
--- NOTE | 2016-02-21 17:02 | EDDOCDS ---
Physician Documentation [facility] Name: Julián Foster Age: 80 yrs Sex: Male : 1935 Arrival Date: 02/19/2016 Time: 10:41 Bed 2 Private MD: Disposition: 02/19/16 12:25 Hospitalization ordered by Alysia Prado for Inpatient Admission. Preliminary diagnosis are Hypotension - suspect medication induced, Atrial fibrillation and flutter - slow - suspect medication induced. - Bed requested for M ICU. - Status is Inpatient Admission. dy - Condition is Stable. - Problem is new. - Symptoms are unchanged. Historical: - Allergies: Bee Stings; - Home Meds: 1. Eliquis 5 mg oral tab 1 tab 2 times per day (Last dose: 02/19/2016) 2. simvastatin 20 mg Oral tab 1 tab once daily (Last dose: 02/19/2016) 3. tamsulosin 0.4 mg oral cp24 1 cap once daily (Last dose: 02/19/2016) 4. Metoprolol 50mg twice a day (Last dose: 02/19/2016) 5. Cyanocobal 1000mcg monthly IM (Last dose: 02/07/2016) 6. lisinopril 10 mg Oral tab 1 tab once daily (Last dose: 02/19/2016) 7. diltiazem HCl 240 mg oral CDER 1 cap once daily (Last dose: 02/19/2016) 8. Namenda oral 28mg hs oral (Last dose: 02/18/2016) 9. Vitamin D Oral 400 unit daily (Last dose: 02/19/2016) - PMHx: CAD; Hypercholesterolemia; Hypertension; Dementia; - PSHx: Left carotid endarterectomy; CABG; Bilateral rotator cuff repair; - Social history: Smoking status: Patient states former smoker of tobacco. No barriers to communication noted, The patient speaks fluent Uzbek. - Family history: Not pertinent. - : The pt / caregiver states he / she is on anticoagulants: Eliquis Home medication list is obtained from the patient. - Exposure Risk Screening:: None identified. Vital Signs: 02/18 10:53 BP 95 / 45; Pulse 57; Resp 18; Temp 96.4; Pulse Ox 99% ; Weight 58.97 kg / 130.01 lbs; jlf Height 5 ft. 7 in. (170.18 cm); 11:00 BP 103 / 51 (auto/); dy 11:01 Pulse 51 MON; Pulse Ox 98% ; dy 11:15 BP 89 / 53 (auto/); dy 11:23 Pulse 50 MON; Pulse Ox 98% ; dy 11:24 BP 92 / 52 (auto/); dy 11:25 Pulse 50 MON; Pulse Ox 96% ; dy 11:30 Pulse 45 MON; Pulse Ox 96% ; dy 11:30 BP 106 / 55 (auto/); dy 11:45 Pulse 50 MON; Pulse Ox 98% ; dy 11:45 BP 101 / 52 (auto/); dy 12:00 BP 92 / 52 (auto/); dy 12:00 Pulse 40 MON; Pulse Ox 96% ; dy 12:15 BP 89 / 44 (auto/); dy 12:15 Pulse 39 MON; Pulse Ox 97% ; dy 12:30 BP 86 / 50 (auto/); dy 12:31 Pulse 40 MON; Pulse Ox 96% ; dy 12:54 BP 69 / 32 (auto/); dy 12:54 Pulse 37 MON; Pulse Ox 97% ; dy 13:00 BP 83 / 47 (auto/); dy 13:01 Pulse 37 MON; Pulse Ox 86% ; dy 13:15 BP 82 / 50 (auto/); dy 13:16 Pulse 36 MON; dy 13:30 BP 76 / 39 (auto/); dy 13:45 BP 81 / 52 (auto/); dy 13:48 Pulse 36 MON; Pulse Ox 96% ; dy 13:57 Pulse 36 MON; Pulse Ox 93% ; dy 14:00 BP 74 / 36 (auto/); Pulse 37; Resp 16; Temp 97.4(TE); Pulse Ox 96% on R/A; Pain 0/10; dy 14:28 BP 78 / 40 (auto/); dy 14:30 Pulse 35 MON; Pulse Ox 97% ; dy 14:44 BP 92 / 43 (auto/); dy 14:44 Pulse 36 MON; Pulse Ox 99% ; dy 15:22 BP 86 / 51 (auto/); dy 15:24 Pulse 44 MON; Pulse Ox 93% ; dy 15:27 BP 91 / 48 (auto/); dy 15:30 Pulse 36 MON; Pulse Ox 92% ; dy 15:37 Pulse 35 MON; dy 15:37 BP 83 / 45 (auto/); dy 15:39 Pulse 35 MON; Pulse Ox 93% ; dy 15:45 BP 85 / 43 (auto/); Pulse 36; Resp 16; Temp 98.1(TE); Pulse Ox 93% on R/A; Pain 2/10; dy 10:53 Body Mass Index 20.36 (58.97 kg, 170.18 cm) [facility] MDM: 10:45 Wire Frame Lampshade Maker/Pulse Ox/q 15 min VS ordered. sd1 10:45 Accucheck ordered. sd1 10:45 IV Saline Lock ordered. sd1 10:45 Oxygen at 4L/Min NC or Home dosage ordered. sd1 10:45 Rhythm Strip to chart ordered. sd1 10:47 Acetaminophen Level Ordered. EDMS 10:47 CBC with Diff Ordered. EDMS 10:47 Cardiac Injury Profile Ordered. EDMS 10:47 Drug Eval Toxicology ED Only Ordered. EDMS 10:47 Liver Profile Ordered. EDMS 10:47 MED Profile Ordered. EDMS 10:47 Salicylate Level Ordered. EDMS 10:47 Thyroid Stimulating Hormone Ordered. EDMS 10:47 Troponin Ordered. EDMS 10:47 CT Head Without Contrast Ordered. EDMS 10:47 ECG WITH READING ER PHYS+CARDIAG ordered. EDMS 10:48 PT/INR Ordered. EDMS 11:00 BED REQUEST+ADM ordered. EDMS 11:58 CBC with Diff Reviewed. sd1 11:58 PT/INR Reviewed. sd1 12:11 Acetaminophen Level Reviewed. sd1 12:11 Liver Profile Reviewed. sd1 12:11 MED Profile Reviewed. sd1 12:11 Salicylate Level Reviewed. sd1 12:11 Cardiac Injury Profile Reviewed. sd1 12:11 Drug Eval Toxicology ED Only Reviewed. sd1 12:11 Thyroid Stimulating Hormone Reviewed. sd1 12:11 Troponin Reviewed. sd1 12:11 CT Head Without Contrast Reviewed. sd1 12:12 -Blood Culture (Adults Only), peripheral from different site, or from device/port/PICC sd1 etc. if present ordered. 12:12 Lactic Acid (Rob tube on ice) Ordered. EDMS 12:13 -Blood Culture Ordered. EDMS 12:18 -Blood Culture (Adults Only), peripheral from different site, or from device/port/PICC rs6 etc. if present complete. 12:21 BLOOD CULTURES Ordered. EDMS 12:30 Chest, 1 View Ordered. EDMS 13:01 NS 0.9% 500 ml IV at bolus once ordered. dy 13:12 Financial registration complete. mm15 13:14 [facility] Payment Agreement was scanned into [employer] and attached to record. mm15 13:30 MAGNESIUM LEVEL Ordered. EDMS 13:30 CARDIAC MARKER PANEL Ordered. EDMS 13:30 CARDIAC MARKER PANEL Ordered. EDMS 13:31 Admission / Observation Status ordered. EDMS 13:31 NO ADDED SALT DIET ordered. EDMS 14:16 NS 0.9% 500 ml IV at bolus once ordered. dy 14:29 ECHOCARD,DOPPLER/COLOR FLOW ordered. EDMS 15:31 Zofran 4 mg IV at bolus now; administer over at least 30 seconds/preferably over 2-5 dwg minutes ordered. 15:37 Calcium Gluconate 1 grams IVPB once over 1 hrs; add to 100mL of NS ordered. dy 15:39 Glucagon 3 mg IVP once ordered. dy 18:43 ED course: at the point of admission patient bradycardic and mildly hypotensive however sd1 asymptomatic mentating well without any complaints - will hold glucagon at this point - accidental ingestion of excessive meds to include metoprolol and cardizem occurred yesterday would anticipate improvement - monitor . 02/19 01:21 T-Sheet-- Draft Copy was scanned into [employer] and attached to record. lja 08:15 PCR was scanned into [employer] and attached to record. gb 08:16 ECG/EKG was scanned into [employer] and attached to record. gb Administered Medications: 02/18 13:01 Drug: NS 0.9% 500 ml [sodium chloride 0.9 % injection solution] Route: IV; Rate: bolus; dy Site: right antecubital; 13:30 Follow up: IV Status: Completed infusion; IV Intake: 500ml dy 14:13 Drug: NS 0.9% 500 ml [sodium chloride 0.9 % injection solution] Route: IV; Rate: bolus; dy Site: right antecubital; 14:45 Follow up: IV Status: Completed infusion; IV Intake: 500ml dy 15:10 Drug: Glucagon 3 mg [glucagon (human recombinant) 1 mg/mL solution for injection (3 dy mL)] Route: IVP; Site: right antecubital; 15:32 Drug: Zofran 4 mg Route: IV; Rate: bolus; Site: right antecubital; [facility] 15:32 Drug: Calcium Gluconate 1 grams [calcium gluconate 100 mg/mL (10 %) intravenous dy solution] {Co-Signature: hs1 (Sarah Yarbrough RN).} Route: IVPB; Infused Over: 1 hrs; Site: right antecubital; Signatures: Dispatcher [employer] Yamileth Valdez MD MD sd1 Patrice Mcintyre, RN RN [facility] Kennedi Cobb, Ilan Reg Jagdish Pacheco, RN Angel Lutz mm15 Niseha Ibarra, CONTRACT COORDINATOR CONTRACT COORDINATOR rs6 Arel, Ryann richard Yarbrough RN hs1 The chart was reviewed and I authenticate all verbal orders and agree with the evaluation and treatment provided.Attachments: 13:14 [facility] Payment Agreement [id number] 02/19 01:21 T-Sheet-- Draft Copy [facility] 08:16 ECG/EKG Chart Complete MTDD
--- NOTE | 2016-02-21 17:03 | EDDOCDS ---
Physician Documentation [facility] Name: Julián Foster Age: 80 yrs Sex: Male : 1935 Arrival Date: 02/19/2016 Time: 10:41 Bed 2 Private MD: Disposition: 02/19/16 12:25 Hospitalization ordered by Alysia Prado for Inpatient Admission. Preliminary diagnosis are Hypotension - suspect medication induced, Atrial fibrillation and flutter - slow - suspect medication induced. - Bed requested for M ICU. - Status is Inpatient Admission. dy - Condition is Stable. - Problem is new. - Symptoms are unchanged. Historical: - Allergies: Bee Stings; - Home Meds: 1. Eliquis 5 mg oral tab 1 tab 2 times per day (Last dose: 02/19/2016) 2. simvastatin 20 mg Oral tab 1 tab once daily (Last dose: 02/19/2016) 3. tamsulosin 0.4 mg oral cp24 1 cap once daily (Last dose: 02/19/2016) 4. Metoprolol 50mg twice a day (Last dose: 02/19/2016) 5. Cyanocobal 1000mcg monthly IM (Last dose: 02/07/2016) 6. lisinopril 10 mg Oral tab 1 tab once daily (Last dose: 02/19/2016) 7. diltiazem HCl 240 mg oral CDER 1 cap once daily (Last dose: 02/19/2016) 8. Namenda oral 28mg hs oral (Last dose: 02/18/2016) 9. Vitamin D Oral 400 unit daily (Last dose: 02/19/2016) - PMHx: CAD; Hypercholesterolemia; Hypertension; Dementia; - PSHx: Left carotid endarterectomy; CABG; Bilateral rotator cuff repair; - Social history: Smoking status: Patient states former smoker of tobacco. No barriers to communication noted, The patient speaks fluent Wolof. - Family history: Not pertinent. - : The pt / caregiver states he / she is on anticoagulants: Eliquis Home medication list is obtained from the patient. - Exposure Risk Screening:: None identified. Vital Signs: 02/18 10:53 BP 95 / 45; Pulse 57; Resp 18; Temp 96.4; Pulse Ox 99% ; Weight 58.97 kg / 130.01 lbs; jlf Height 5 ft. 7 in. (170.18 cm); 11:00 BP 103 / 51 (auto/); dy 11:01 Pulse 51 MON; Pulse Ox 98% ; dy 11:15 BP 89 / 53 (auto/); dy 11:23 Pulse 50 MON; Pulse Ox 98% ; dy 11:24 BP 92 / 52 (auto/); dy 11:25 Pulse 50 MON; Pulse Ox 96% ; dy 11:30 Pulse 45 MON; Pulse Ox 96% ; dy 11:30 BP 106 / 55 (auto/); dy 11:45 Pulse 50 MON; Pulse Ox 98% ; dy 11:45 BP 101 / 52 (auto/); dy 12:00 BP 92 / 52 (auto/); dy 12:00 Pulse 40 MON; Pulse Ox 96% ; dy 12:15 BP 89 / 44 (auto/); dy 12:15 Pulse 39 MON; Pulse Ox 97% ; dy 12:30 BP 86 / 50 (auto/); dy 12:31 Pulse 40 MON; Pulse Ox 96% ; dy 12:54 BP 69 / 32 (auto/); dy 12:54 Pulse 37 MON; Pulse Ox 97% ; dy 13:00 BP 83 / 47 (auto/); dy 13:01 Pulse 37 MON; Pulse Ox 86% ; dy 13:15 BP 82 / 50 (auto/); dy 13:16 Pulse 36 MON; dy 13:30 BP 76 / 39 (auto/); dy 13:45 BP 81 / 52 (auto/); dy 13:48 Pulse 36 MON; Pulse Ox 96% ; dy 13:57 Pulse 36 MON; Pulse Ox 93% ; dy 14:00 BP 74 / 36 (auto/); Pulse 37; Resp 16; Temp 97.4(TE); Pulse Ox 96% on R/A; Pain 0/10; dy 14:28 BP 78 / 40 (auto/); dy 14:30 Pulse 35 MON; Pulse Ox 97% ; dy 14:44 BP 92 / 43 (auto/); dy 14:44 Pulse 36 MON; Pulse Ox 99% ; dy 15:22 BP 86 / 51 (auto/); dy 15:24 Pulse 44 MON; Pulse Ox 93% ; dy 15:27 BP 91 / 48 (auto/); dy 15:30 Pulse 36 MON; Pulse Ox 92% ; dy 15:37 Pulse 35 MON; dy 15:37 BP 83 / 45 (auto/); dy 15:39 Pulse 35 MON; Pulse Ox 93% ; dy 15:45 BP 85 / 43 (auto/); Pulse 36; Resp 16; Temp 98.1(TE); Pulse Ox 93% on R/A; Pain 2/10; dy 10:53 Body Mass Index 20.36 (58.97 kg, 170.18 cm) [facility] MDM: 10:45 Carton Forming Machine Adjuster/Pulse Ox/q 15 min VS ordered. sd1 10:45 Accucheck ordered. sd1 10:45 IV Saline Lock ordered. sd1 10:45 Oxygen at 4L/Min NC or Home dosage ordered. sd1 10:45 Rhythm Strip to chart ordered. sd1 10:47 Acetaminophen Level Ordered. EDMS 10:47 CBC with Diff Ordered. EDMS 10:47 Cardiac Injury Profile Ordered. EDMS 10:47 Drug Eval Toxicology ED Only Ordered. EDMS 10:47 Liver Profile Ordered. EDMS 10:47 MED Profile Ordered. EDMS 10:47 Salicylate Level Ordered. EDMS 10:47 Thyroid Stimulating Hormone Ordered. EDMS 10:47 Troponin Ordered. EDMS 10:47 CT Head Without Contrast Ordered. EDMS 10:47 ECG WITH READING ER PHYS+CARDIAG ordered. EDMS 10:48 PT/INR Ordered. EDMS 11:00 BED REQUEST+ADM ordered. EDMS 11:58 CBC with Diff Reviewed. sd1 11:58 PT/INR Reviewed. sd1 12:11 Acetaminophen Level Reviewed. sd1 12:11 Liver Profile Reviewed. sd1 12:11 MED Profile Reviewed. sd1 12:11 Salicylate Level Reviewed. sd1 12:11 Cardiac Injury Profile Reviewed. sd1 12:11 Drug Eval Toxicology ED Only Reviewed. sd1 12:11 Thyroid Stimulating Hormone Reviewed. sd1 12:11 Troponin Reviewed. sd1 12:11 CT Head Without Contrast Reviewed. sd1 12:12 -Blood Culture (Adults Only), peripheral from different site, or from device/port/PICC sd1 etc. if present ordered. 12:12 Lactic Acid (Rob tube on ice) Ordered. EDMS 12:13 -Blood Culture Ordered. EDMS 12:18 -Blood Culture (Adults Only), peripheral from different site, or from device/port/PICC rs6 etc. if present complete. 12:21 BLOOD CULTURES Ordered. EDMS 12:30 Chest, 1 View Ordered. EDMS 13:01 NS 0.9% 500 ml IV at bolus once ordered. dy 13:12 Financial registration complete. mm15 13:14 [facility] Payment Agreement was scanned into [facility] and attached to record. mm15 13:30 MAGNESIUM LEVEL Ordered. EDMS 13:30 CARDIAC MARKER PANEL Ordered. EDMS 13:30 CARDIAC MARKER PANEL Ordered. EDMS 13:31 Admission / Observation Status ordered. EDMS 13:31 NO ADDED SALT DIET ordered. EDMS 14:16 NS 0.9% 500 ml IV at bolus once ordered. dy 14:29 ECHOCARD,DOPPLER/COLOR FLOW ordered. EDMS 15:31 Zofran 4 mg IV at bolus now; administer over at least 30 seconds/preferably over 2-5 dwg minutes ordered. 15:37 Calcium Gluconate 1 grams IVPB once over 1 hrs; add to 100mL of NS ordered. dy 15:39 Glucagon 3 mg IVP once ordered. dy 18:43 ED course: at the point of admission patient bradycardic and mildly hypotensive however sd1 asymptomatic mentating well without any complaints - will hold glucagon at this point - accidental ingestion of excessive meds to include metoprolol and cardizem occurred yesterday would anticipate improvement - monitor . 02/19 01:21 T-Sheet-- Draft Copy was scanned into [employer] and attached to record. lja 08:15 PCR was scanned into [employer] and attached to record. gb 08:16 ECG/EKG was scanned into [facility] [facility] and attached to record. gb Administered Medications: 02/18 13:01 Drug: NS 0.9% 500 ml [sodium chloride 0.9 % injection solution] Route: IV; Rate: bolus; dy Site: right antecubital; 13:30 Follow up: IV Status: Completed infusion; IV Intake: 500ml dy 14:13 Drug: NS 0.9% 500 ml [sodium chloride 0.9 % injection solution] Route: IV; Rate: bolus; dy Site: right antecubital; 14:45 Follow up: IV Status: Completed infusion; IV Intake: 500ml dy 15:10 Drug: Glucagon 3 mg [glucagon (human recombinant) 1 mg/mL solution for injection (3 dy mL)] Route: IVP; Site: right antecubital; 15:32 Drug: Zofran 4 mg Route: IV; Rate: bolus; Site: right antecubital; [facility] 15:32 Drug: Calcium Gluconate 1 grams [calcium gluconate 100 mg/mL (10 %) intravenous dy solution] {Co-Signature: hs1 (Sarah Yarbrough RN).} Route: IVPB; Infused Over: 1 hrs; Site: right antecubital; Signatures: Dispatcher [employer] Yamileth Valdez MD MD sd1 Patrice Mcintyre, RN RN [facility] Kennedi Cobb, Ilan Reg Jagdish Pacheco, RN Angel Lutz mm15 Niesha Ibarra, DOT COMPLIANCE MANAGER DOT COMPLIANCE MANAGER rs6 Arel, Ryann richard Yarbrough RN hs1 The chart was reviewed and I authenticate all verbal orders and agree with the evaluation and treatment provided.Attachments: 13:14 [facility] Payment Agreement mm15 02/19 01:21 T-Sheet-- Draft Copy [facility] 08:16 ECG/EKG Chart Complete MTDD
[2016-02-21] MEDS ORDERED: SLF 3 ML SYR IV PRN (17:15)
[2016-02-21] MEDS: SLF 3 ML SYR IV SCH (21:16)
[2016-02-21] MEDS: SODIUM CHLORIDE 0.9% INJ 10 ML SYR IV SCH (21:16)
[2016-02-22] VITALS (13 sets, daily range): BP systolic 96–167; BP diastolic 37–103
[2016-02-22] MEDS: METOCLOPRAMIDE INJ 10MG/2ML VIAL (J2765) IV SCH ×4 (00:16→17:09)
[2016-02-22] MEDS: METOPROLOL TART 25 MG TABLET PO SCH ×4 (00:17→17:09)
[2016-02-22 04:54] LABS: BASO # 0.1 K/mm3 (0.0-0.2); EOS # 0.2 K/mm3 (0.0-0.50); EOS % 1.9 % (0.0-3.0); LARGE UNSTAINED CELL # 0.1 K/mm3 (0.0-0.4); LARGE UNSTAINED CELL % 1.4 % (0.0-4.0); LYMPH # 0.8 K/mm3 (1.5-4.5); LYMPH % 8.4 % (24.0-44.0); MEAN CORPUSCULAR HEMOGLOBIN 32.4 pg (27.0-33.0); MEAN CORPUSCULAR HGB CONC 33.7 g/dl (32.0-36.5); MEAN CORPUSCULAR VOLUME 95.9 fl (80.0-96.0); MONO # 0.4 K/mm3 (0.0-0.8); MONO % 5.4 % (0.0-5.0); NEUTROPHILS # 6.3 K/mm3 (1.8-7.7); NEUTROPHILS % 81.9 % (36.0-66.0); PLATELET COUNT, AUTOMATED 145 k/mm3 (150-450); RED CELL DISTRIBUTION WIDTH 14.2 % (11.5-14.5); WHITE BLOOD COUNT 7.7 K/mm3 (4.0-10.0)
[2016-02-22 05:07] LABS: INR 1.42
[2016-02-22] MEDS: SLF 3 ML SYR IV SCH ×3 (05:13→22:00)
[2016-02-22] MEDS: SODIUM CHLORIDE 0.9% INJ 10 ML SYR IV SCH ×3 (05:13→21:55)
[2016-02-22 05:15] LABS: CALCIUM LEVEL 8.5 MG/DL (8.8-10.2); CREATININE FOR GFR 1.87 MG/DL (0.70-1.30); GLOMERULAR FILTRATION RATE 37.4 (>42); MAGNESIUM LEVEL 1.8 MG/DL (1.8-2.4); POTASSIUM SERUM 4.5 MEQ/L (3.5-5.1)
[2016-02-22] MEDS: HumaLOG INSULIN (NovoLOG) PER UNIT SC SCH ×4 (07:30→21:00)
[2016-02-22] MEDS ORDERED: FUROSEMIDE 100 MG/10 ML VIAL (J1940) IV ONE (07:45)
[2016-02-22] MEDS: PANTOPRAZOLE 40MG TAB (PROTONIX) PO SCH (08:18)
--- NOTE | 2016-02-22 08:27 | IPN ---
DATE: 02/22/2016 Mr. Foster is complaining about shortness of breath. He actually yesterday, relatively suddenly, from being hypotensive and bradycardic became tachycardic. All his pressors were discontinued and I had to put him on a beta-kathleen to accomplish reasonable rate control, but apparently during the night he became more restless and more short of breath. This morning the blood pressure is documented at 145/69 on the computer. When I was in the room it was 98/64, heart rate is in the 100-120 range. Saturation is only 90% on 3 of liters of oxygen by nasal cannula. He already made 1220 mL of urine today. Fluid balance yesterday was slightly positive, but the day before he was almost 7 liters positive. JVP is difficult to assess because he has an IJ line on the right and dressing after carotid endarterectomy in the left. Lungs reveal scattered expiratory wheezes. I do not appreciate any crackers or rhonchi. Heart exam reveals irregular tachycardia. Abdomen is soft, nontender. I do not appreciate much peripheral edema. Laboratory talley, hemoglobin is 12.3, hematocrit 36 and platelet count 145,000. Basic metabolic panel potassium 4.5, BUN 45, creatinine 1.9 for a GFR of 37 and glucose was 81. ASSESSMENT/PLAN: Mr. Foster is a 80-year-old man who has mild dementia who presented with hypotension and bradycardia after he accidentally took high doses of calcium channel blockers, beta blockers and JM inhibitors together with 11 pills of Eliquis. He initially required pressor support and glucagon infusion, but as of now it appears that the toxic effect of the medications has passed and he actually is tachycardiac and volume overloaded from his excessive hydration that was necessary for his hypotension. His renal function is improving. I am going to leave metoprolol 25 every 6 hours for the time being as the only rate controlling medication. I am going to give him single dose of Lasix because I am convinced that his shortness of breath is very likely due to congestive heart failure. Depending on response, may decide on further management. We should also start talking about resuming anticoagulation. It has been more than 3 days since the last dose of Eliquis and consequently the affect is essentially resolved. I will wait further response to diuretics before I administered the medication.
--- NOTE | 2016-02-22 08:39 | ECHO ---
DATE OF PROCEDURE: 02/20/2016 REFERRING PHYSICIAN: Dr. Triston Sanford INDICATION: Hypotension. The patient measures 170 cm and weighs 59 kilograms. DIMENSIONS: IVS - 0.9 LV - 3.9 LVPW - 1.1 LA - 3.5 Aorta - 3.0 FINDINGS: The study is of acceptable technical quality. Left ventricle is normal size and systolic function with estimated ejection fraction of 60 to 65%. Right ventricle also appears normal. Both atria are severely enlarged. Aortic valve is three cuspid, is mildly sclerotic and there is mild limitation of opening. Mitral and tricuspid valves appear normal. Pulmonic valve was not well seen. No pericardial effusion is noted. Inferior vena cava is dilated but collapsed with respiration indicative of probably mildly elevated central venous pressure, aortic root and abdominal aorta appear normal. Aortic arch was not well seen. Doppler interrogation of the aortic valve reveals no insufficiency and minimal stenosis with mean gradient 30 mm of mercury. There is mild mitral insufficiency and mild tricuspid insufficiency. Calculated pulmonary artery pressure is at least around 40 or higher that would correspond to moderate pulmonary hypertension. Evaluation of diastolic function is inconclusive due to presence of underlying atrial flutter. CONCLUSIONS: 1. The study is of acceptable technical quality. 2. Normal LV size and systolic function. 3. Mild aortic stenosis. 4. Mild mitral and tricuspid insufficiency. 5. Likely elevated central venous pressure and probably moderate pulmonary hypertension. 6. Severe biatrial enlargement. COMMENT: SBE prophylaxis is not recommended.
[2016-02-22] MEDS ORDERED: METOPROLOL TART 25 MG TABLET PO ONE (17:45)
--- NOTE | 2016-02-22 18:57 | ECGEPIP ---
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
[2016-02-23] VITALS (7 sets, daily range): BP systolic 121–182; BP diastolic 61–98
[2016-02-23] MEDS: METOPROLOL TART 50 MG TAB PO SCH ×4 (00:02→17:55)
[2016-02-23] MEDS: METOCLOPRAMIDE INJ 10MG/2ML VIAL (J2765) IV SCH ×4 (00:03→17:54)
[2016-02-23] MEDS: SLF 3 ML SYR IV SCH ×3 (05:22→22:00)
[2016-02-23] MEDS: SODIUM CHLORIDE 0.9% INJ 10 ML SYR IV SCH ×3 (05:22→21:20)
[2016-02-23 05:58] LABS: INR 1.19
[2016-02-23 06:10] LABS: BASO % 0.6 % (0.0-1.0); EOS # 0.1 K/mm3 (0.0-0.50); EOS % 2.4 % (0.0-3.0); LARGE UNSTAINED CELL # 0.1 K/mm3 (0.0-0.4); LARGE UNSTAINED CELL % 1.6 % (0.0-4.0); LYMPH # 0.5 K/mm3 (1.5-4.5); LYMPH % 10.8 % (24.0-44.0); MEAN CORPUSCULAR HEMOGLOBIN 32.8 pg (27.0-33.0); MEAN CORPUSCULAR HGB CONC 33.3 g/dl (32.0-36.5); MEAN CORPUSCULAR VOLUME 98.7 fl (80.0-96.0); MONO # 0.3 K/mm3 (0.0-0.8); MONO % 5.5 % (0.0-5.0); NEUTROPHILS # 3.6 K/mm3 (1.8-7.7); NEUTROPHILS % 79.2 % (36.0-66.0); PLATELET COUNT, AUTOMATED 128 k/mm3 (150-450); RED CELL DISTRIBUTION WIDTH 13.5 % (11.5-14.5); WHITE BLOOD COUNT 4.5 K/mm3 (4.0-10.0)
[2016-02-23 06:26] LABS: CALCIUM LEVEL 8.2 MG/DL (8.8-10.2); CREATININE FOR GFR 1.54 MG/DL (0.70-1.30); GLOMERULAR FILTRATION RATE 46.7 (>42); MAGNESIUM LEVEL 1.8 MG/DL (1.8-2.4); POTASSIUM SERUM 4.4 MEQ/L (3.5-5.1)
[2016-02-23] MEDS: HumaLOG INSULIN (NovoLOG) PER UNIT SC SCH ×4 (07:14→20:45)
[2016-02-23] MEDS: PANTOPRAZOLE 40MG TAB (PROTONIX) PO SCH (09:01)
--- NOTE | 2016-02-23 10:24 | IPN ---
DATE: 02/23/2016 Mr. Foster is feeling better. He is much less short of breath after he diuresed yesterday. He denies any chest pain or palpitations. Unfortunately, his atrial flutter is now poorly rate controlled and is, for the most part, in 2:1 conduction with ventricular rate is 120s. When he is in bed, he often goes to 90s. VITAL SIGNS: Blood pressure 156/94, heart rate as above. He is afebrile. Saturation 93% of 1 liter of oxygen by nasal cannula. His fluid balance yesterday was about 5 liters negative. His jugular venous pressure is difficult to assess due to presence of right IJ cannula and dressing over left carotid endarterectomy site. Lungs are pretty clear to auscultation. I do not appreciate wheezing or crackles. Heart examination reveals regular tachycardia. Abdomen is soft, nontender. No peripheral edema. Neurologically, he is intact even though sleepy LABORATORY: Hemoglobin 11.4, hematocrit 34, platelet count 128,000. Basic metabolic panel: Potassium 4.4, BUN 37, creatinine 1.5 and glucose 87. ASSESSMENT AND PLAN: Mr. Foster is a 80-year-old man who presented with intoxication by a multitude of medications, including Eliquis, metoprolol, Cardizem, lisinopril, besides others. He was initially hypotensive, bradycardic , but fortunately with application of pressors all his symptoms resolved. Currently, he is in rate uncontrolled atrial flutter. At this point, I believe we can restart anticoagulation. I will put him back on Eliquis. Also, I am going to add an additional medication for rate control as metoprolol 50mg every 6 hours so far has not been able to control his heart rate. I am going to give him only as needed dose of Cardizem every 6 hours and hopefully this will accomplish appropriate rate control. I am hoping that within the next couple days he will be getting ready for discharge. Unfortunately, his social situation is not favorable and some effort or arrangement will have to be made that the current incident will not repeat itself. [facility]
[2016-02-23] MEDS: APIXABAN 5 MG TAB (ELIQUIS) PO SCH ×2 (11:22→21:20)
--- NOTE | 2016-02-23 12:58 | IPNPDOC ---
Text Note Date of Service The patient was seen on 02/23/16 at 12:49. NOTE: Subjective: Pt states he feels well. Denies CP/SOB/palpitations. Objective: Vitals: (see below) General: No acute distress, laying comfortably in bed. HEENT: Moist mucous membranes. Neck: No JVD or lymphadenopathy. Right IJ TLC with dressing clean, dry, intact. Cardiac: Irregularly irregular, tachycardic, No murmurs Pulm: Diminished breath sounds and coarse crackles at the bases b/l. No wheezing , rhonchi Abd: NT/ND + BS Ext: No edema or cyanosis Labs (see below) Images: CT Head 02/19/16 IMPRESSION: 1. Small vessel ischemic disease. 2. Moderate volume loss. CXR 02/21/16 Right jugular catheter with tip in SVC unchanged. Sternotomy wires are seen. There is cardiomegaly. Elevation of the left diaphragm and some vascular redistribution and venous hypertension noted. 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 There is some increasing air space opacity in the right medial base and above the left diaphragm suggesting some atelectasis or alveolar infiltrate/edema. Left effusion suspected versus scar. No gross right effusion. No other change. Assessment/Plan 1. Unintentional overdose of BB,CCB,ACEi, Eliquis - initially admitted to ICU. s /p distributive shock; off levophed and dopamine. s/p glucagon drip. 2. AF with RVR; was restarted on Metoprolol, which was increased 50mg yesterday , and cardizem/eliquis today. Will maintain in ICU, if remains hemodynamically stable, will downgrade to PCU. 3. Hypoxia 2/2 pulmonary congestion from agressive volume resuscitation during initial presentation. s/p IV lasix. Much improved. 4. Chronic anemia - no acute hemorrhage. Hb stable, cont to monitor 5. Carotid stenosis s/p CEA. on ASA/statin 6. CAD s/p cabg - on asa, statin, BB 7. Dementia Pt will need placement support once stabilized for d/c to prevent future unintentional overdoses. DVT prophy: On eliquis VS,Fishbone, I+O VS, Fishbone, I+O Laboratory Tests 02/23/16 05:23 Calcium Level 8.2 L, Red Blood Count 3.48 L, Mean Corpuscular Volume 98.7 H, Mean Corpuscular Hemoglobin 32.8, Mean Corpuscular Hemoglobin Concent 33.3, Red Cell Distribution Width 13.5, Neutrophils (%) (Auto) 79.2 H, Lymphocytes (%) ( Auto) 10.8 L, Monocytes (%) (Auto) 5.5 H, Eosinophils (%) (Auto) 2.4, Basophils (%) (Auto) 0.6, Neutrophils # (Auto) 3.6, Lymphocytes # (Auto) 0.5 L, Monocytes # (Auto) 0.3, Eosinophils # (Auto) 0.1, Basophils # (Auto) 0.0 Vital Signs Date Time Temp Pulse Resp B/P Pulse Ox O2 Delivery O2 Flow Rate FiO2 02/23/16 11:21 127 129/84 02/23/16 08:00 97.4 18 93 Nasal Cannula 1.0 I&O- Last 24 Hours up to 6 AM 02/23/16 06:00 Intake Total 980 ml Output Total 5500 ml Balance -4520 ml NGOC BUITRAGO MD Feb 23, 2016 12:58
--- NOTE | 2016-02-23 13:17 | IPNPDOC ---
Text Note Date of Service The patient was seen on 02/23/16 at 13:01. NOTE: Subjective: Pt fells well. Denies lightheadedness. No CP/SOB/Palpitations. Objective: Vitals: (see below) General: No acute distress, laying comfortably in bed. HEENT: Moist mucous membranes. Neck: No JVD or lymphadenopathy Cardiac: RRR, No murmurs Pulm: Coarse crackles at the bases. b/l. No wheezing, rhonchi Abd: NT/ND + BS Ext: No edema or cyanosis Neuro: Strength 5/5 BUE and BLE. CN 2-12 intact. Negative Babinki. Labs (see below) Images: Right knee x ray 02/22/16 Impression : Advanced lateral, moderate medial and moderate patellofemoral osteoarthritis No acute fracture or joint effusion CT Head 02/22/16 IMPRESSION: 1. Old left basal ganglia lacunar infarction. 2. Small vessel ischemic disease. 3. Moderate volume loss. CXR 02/22/16 Impression: Cardiac pacers are unchanged. Tortuous thoracic aorta. No acute cardiopulmonary process or interval change. CT C-spine 02/22/16 IMPRESSION: 1. There is no acute fracture. 2. There is cervical spondylosis at the C1-2 through C7-T1 levels. Assessment/Plan 1. Syncope - pt was relatively hypotensive on presentation, with likely a orthostatic component. Pt has been hydrated. Lasix and Quinapril d/c for now. Echocardiogram pending. Will need outpt f/u with Dr. Avila after d/c. 2. CAD - Cont ASA, statin 3. CHB s/p PPM 4. H/o CVA - on asa/statin 5. HLD - cont statin DVT prophy: Heparin SQ Pl an to d/c in the next 24 hours if remains hemodynamically stable. VS,Fishbone, I+O VS, Fishbone, I+O Laboratory Tests 02/23/16 05:23 Calcium Level 8.2 L, Red Blood Count 3.48 L, Mean Corpuscular Volume 98.7 H, Mean Corpuscular Hemoglobin 32.8, Mean Corpuscular Hemoglobin Concent 33.3, Red Cell Distribution Width 13.5, Neutrophils (%) (Auto) 79.2 H, Lymphocytes (%) ( Auto) 10.8 L, Monocytes (%) (Auto) 5.5 H, Eosinophils (%) (Auto) 2.4, Basophils (%) (Auto) 0.6, Neutrophils # (Auto) 3.6, Lymphocytes # (Auto) 0.5 L, Monocytes # (Auto) 0.3, Eosinophils # (Auto) 0.1, Basophils # (Auto) 0.0 Vital Signs Date Time Temp Pulse Resp B/P Pulse Ox O2 Delivery O2 Flow Rate FiO2 02/23/16 11:21 127 129/84 02/23/16 08:00 97.4 18 93 Nasal Cannula 1.0 I&O- Last 24 Hours up to 6 AM 02/23/16 06:00 Intake Total 980 ml Output Total 5500 ml Balance -4520 ml NGOC BUITRAGO MD Feb 23, 2016 13:17
[2016-02-24] VITALS (10 sets, daily range): BP systolic 145–181; BP diastolic 65–98
[2016-02-24] MEDS: METOCLOPRAMIDE INJ 10MG/2ML VIAL (J2765) IV SCH ×2 (00:28→05:23)
[2016-02-24] MEDS: SODIUM CHLORIDE 0.9% INJ 10 ML SYR IV SCH ×3 (05:23→21:46)
[2016-02-24] MEDS: SLF 3 ML SYR IV SCH ×3 (05:24→22:00)
[2016-02-24 05:44] LABS: BASO % 0.4 % (0.0-1.0); EOS # 0.1 K/mm3 (0.0-0.50); EOS % 2.6 % (0.0-3.0); LARGE UNSTAINED CELL # 0.1 K/mm3 (0.0-0.4); LARGE UNSTAINED CELL % 2.1 % (0.0-4.0); LYMPH # 0.7 K/mm3 (1.5-4.5); LYMPH % 13.6 % (24.0-44.0); MEAN CORPUSCULAR HEMOGLOBIN 32.4 pg (27.0-33.0); MEAN CORPUSCULAR HGB CONC 32.4 g/dl (32.0-36.5); MEAN CORPUSCULAR VOLUME 99.9 fl (80.0-96.0); MONO # 0.2 K/mm3 (0.0-0.8); MONO % 4.8 % (0.0-5.0); NEUTROPHILS # 3.8 K/mm3 (1.8-7.7); NEUTROPHILS % 76.6 % (36.0-66.0); PLATELET COUNT, AUTOMATED 137 k/mm3 (150-450); RED CELL DISTRIBUTION WIDTH 13.5 % (11.5-14.5)
[2016-02-24] MEDS: METOPROLOL TART 50 MG TAB PO SCH ×2 (05:49)
[2016-02-24 05:56] LABS: INR 1.28
[2016-02-24 06:06] LABS: CREATININE FOR GFR 1.35 MG/DL (0.70-1.30); GLOMERULAR FILTRATION RATE 54.4 (>42); MAGNESIUM LEVEL 1.7 MG/DL (1.8-2.4); POTASSIUM SERUM 4.7 MEQ/L (3.5-5.1)
[2016-02-24] MEDS: HumaLOG INSULIN (NovoLOG) PER UNIT SC SCH (07:30)
[2016-02-24] MEDS ORDERED: MAG SULF 1GM/100ML (MAG RUN) 1 GM in APPROPRIATE DILUENT 1 EA IV ONE (08:00)
[2016-02-24] MEDS: PANTOPRAZOLE 40MG TAB (PROTONIX) PO SCH (08:22)
[2016-02-24] MEDS: APIXABAN 5 MG TAB (ELIQUIS) PO SCH ×2 (08:23→21:45)
--- NOTE | 2016-02-24 11:19 | IPNPDOC ---
Text Note Date of Service The patient was seen on 02/24/16 at 11:18. NOTE: Subjective: Patient denies any overnight events. Denies CP/SOB/palpitations. Objective: Vitals: (see below) General: No acute distress, laying comfortably in bed. HEENT: Moist mucous membranes. Neck: No JVD or lymphadenopathy. Right IJ TLC with dressing clean, dry, intact. Cardiac: Irregularly irregular, tachycardic, No murmurs Pulm: Diminished breath sounds and coarse crackles at the bases b/l. No wheezing , rhonchi Abd: NT/ND + BS Ext: No edema or cyanosis Labs (see below) Images: CT Head 02/19/16 IMPRESSION: 1. Small vessel ischemic disease. 2. Moderate volume loss. CXR 02/21/16 Right jugular catheter with tip in SVC unchanged. Sternotomy wires are seen. There is cardiomegaly. Elevation of the left diaphragm and some vascular redistribution and venous hypertension noted. 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 There is some increasing air space opacity in the right medial base and above the left diaphragm suggesting some atelectasis or alveolar infiltrate/edema. Left effusion suspected versus scar. No gross right effusion. No other change. Assessment/Plan 1. Unintentional overdose of BB,CCB,ACEi, Eliquis - initially admitted to ICU. s /p distributive shock; off levophed and dopamine. s/p glucagon drip. 2. AF with RVR; Cont Metoprolol, Cardizem, Eliquis. HR better controlled. Downgrade to PCU. 3. Hypoxia 2/2 pulmonary congestion from aggressive volume resuscitation during initial presentation. s/p IV lasix. Much improved. 4. Chronic anemia - no acute hemorrhage. Hb stable, cont to monitor 5. Carotid stenosis s/p CEA. on ASA/statin 6. CAD s/p cabg - on asa, statin, BB 7. Dementia Pt will need placement support once stabilized for d/c to prevent future unintentional overdoses. DVT prophy: On eliquis VS,Fishbone, I+O VS, Fishbone, I+O Laboratory Tests 02/24/16 05:27 Calcium Level 8.0 L, Red Blood Count 3.41 L, Mean Corpuscular Volume 99.9 H, Mean Corpuscular Hemoglobin 32.4, Mean Corpuscular Hemoglobin Concent 32.4, Red Cell Distribution Width 13.5, Neutrophils (%) (Auto) 76.6 H, Lymphocytes (%) ( Auto) 13.6 L, Monocytes (%) (Auto) 4.8, Eosinophils (%) (Auto) 2.6, Basophils (% ) (Auto) 0.4, Neutrophils # (Auto) 3.8, Lymphocytes # (Auto) 0.7 L, Monocytes # (Auto) 0.2, Eosinophils # (Auto) 0.1, Basophils # (Auto) 0.0 Vital Signs Date Time Temp Pulse Resp B/P Pulse Ox O2 Delivery O2 Flow Rate FiO2 02/24/16 08:00 Nasal Cannula 2.0 02/24/16 08:00 97.7 61 16 160/69 81 I&O- Last 24 Hours up to 6 AM 02/24/16 06:00 Intake Total 1280 ml Output Total 2040 ml Balance -760 ml NGOC BUITRAGO MD Feb 24, 2016 11:19
--- NOTE | 2016-02-24 11:23 | IPN ---
DATE: 02/24/2016 Mr. Foster has been doing well. His heart rate is now well-controlled on combination of metoprolol and Cardizem. He was restarted on his anticoagulation and even without diuretics he does not have any signs of congestive heart failure. VITAL SIGNS: Blood pressure 160/69, heart rate is from 60s to 80s. He is afebrile. Saturations 81% on 2 liters of oxygen by nasal cannula. Fluid balance yesterday was 1 liter negative. Weight is documented 58.2. He is alert and oriented and appropriate. LUNGS: Clear to auscultation. HEART EXAM: Irregularly irregular rhythm. No change since yesterday. His jugular venous pressure (JVP) does not look up, but again, difficult to assess accurately. ABDOMEN: Soft, nontender. No peripheral edema. NEUROLOGIC: He appears intact. LABORATORY DATA: His basic metabolic panel reveals potassium 4.7, BUN 36, creatinine 1.4, for GFR of 54, magnesium was 1.7 and was replaced already. CBC: Hemoglobin 11.0, hematocrit 34.1, and platelet count 137,000. ASSESSMENT/PLAN: Mr. Foster is a 80-year-old man who has chronic atrial flutter, who presented after taking multiple doses of Cardizem, metoprolol, lisinopril, and Eliquis by mistake. He initially was hypotensive and bradycardic but improved with treatment of pressors and glucagon. There was no need for placement of temporary pacemaker. At this point he is back to his normal and was restarted on most of his medications. The only change I made today, I changed the metoprolol to 100 mg twice a day instead of 50 every 6 hours, will see how much Cardizem he will need with this regimen. I would prefer he was only on one rate controlling medication rather than two. Chronic anticoagulation will be continued. He developed acute kidney injury, but it has been slowly improving. I will probably wait another day or two until I would reintroduce angiotensin-converting enzyme (JM) inhibitors. Otherwise I think is doing well. From now on the principal problem will be how to make sure that similar thing does not happen again. 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
--- NOTE | 2016-02-24 12:47 | ECGEPIP ---
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
[2016-02-24] MEDS: METOPROLOL TARTRATE 100 MG TAB PO SCH (21:00)
[2016-02-25 05:05] VITALS: BP 134/91
[2016-02-25] MEDS: SODIUM CHLORIDE 0.9% INJ 10 ML SYR IV SCH ×3 (05:14→21:00)
[2016-02-25] MEDS: SLF 3 ML SYR IV SCH ×3 (05:15→21:00)
[2016-02-25 06:01] LABS: BASO % 0.3 % (0.0-1.0); EOS # 0.2 K/mm3 (0.0-0.50); EOS % 3.3 % (0.0-3.0); LARGE UNSTAINED CELL # 0.1 K/mm3 (0.0-0.4); LARGE UNSTAINED CELL % 2.1 % (0.0-4.0); LYMPH # 0.9 K/mm3 (1.5-4.5); MEAN CORPUSCULAR HEMOGLOBIN 32.4 pg (27.0-33.0); MEAN CORPUSCULAR HGB CONC 32.7 g/dl (32.0-36.5); MEAN CORPUSCULAR VOLUME 99.3 fl (80.0-96.0); MONO # 0.3 K/mm3 (0.0-0.8); MONO % 4.6 % (0.0-5.0); NEUTROPHILS # 4.4 K/mm3 (1.8-7.7); NEUTROPHILS % 73.8 % (36.0-66.0); PLATELET COUNT, AUTOMATED 160 k/mm3 (150-450); RED CELL DISTRIBUTION WIDTH 13.4 % (11.5-14.5); WHITE BLOOD COUNT 5.9 K/mm3 (4.0-10.0)
[2016-02-25 06:19] LABS: INR 1.38
[2016-02-25 06:33] LABS: ANION GAP 8 MEQ/L (8-16); BLOOD UREA NITROGEN 28 MG/DL (7-18); CALCIUM LEVEL 8.2 MG/DL (8.8-10.2); CARBON DIOXIDE LEVEL 30 MEQ/L (21-32); CHLORIDE LEVEL 108 MEQ/L (98-107); CREATININE FOR GFR 1.14 MG/DL (0.70-1.30); GLOMERULAR FILTRATION RATE > 60.0 (>42); GLUCOSE, FASTING 91 MG/DL (83-110); MAGNESIUM LEVEL 1.8 MG/DL (1.8-2.4); POTASSIUM SERUM 4.3 MEQ/L (3.5-5.1); SODIUM LEVEL 146 MEQ/L (136-145)
[2016-02-25 08:00] VITALS: BP 166/74
[2016-02-25] MEDS: APIXABAN 5 MG TAB (ELIQUIS) PO SCH ×2 (08:05→21:00)
[2016-02-25] MEDS: PANTOPRAZOLE 40MG TAB (PROTONIX) PO SCH (08:05)
[2016-02-25] MEDS: METOPROLOL TARTRATE 100 MG TAB PO SCH ×2 (08:05→21:00)
[2016-02-25] MEDS ORDERED: PREVNAR 13 VACCINE SYRINGE (CPT CODE:90670) IM ONE (09:00)
--- NOTE | 2016-02-25 09:20 | IPN ---
DATE: 02/25/2016 Mr. Foster tells me he is feeling fine. He has no complaints. He slept well and he would like to go home. Unfortunately, his heart rate has not been well controlled as of yesterday evening and on. I suspect that it is at least in part due to the fact that his beta kathleen was not administered last night due to the heart rate being under good control. He is otherwise alert and oriented, even though he did not get his date correctly. His jugular venous pulse (JVP) is not up. Lungs are clear. Heart exam reveals irregular tachycardia with a heart rate of 130. Abdomen is soft, nontender. There is no peripheral edema. Neurologically, he is intact. Laboratory-talley, hemoglobin 11.6, hematocrit 35.6 and platelet count 160. Basic metabolic panel is normal. ASSESSMENT/PLAN: Mr. Foster is a 80-year-old man with remote history of coronary artery bypass graft (CABG) and chronic atrial flutter that is normally rate controlled. He presented with intoxication with numerous medications, including beta kathleen, calcium channel kathleen, lisinopril and Eliquis. He required temporary administration of pressors and glucagon, but after the medication effect resolved he actually became tachycardiac. I do believe that if we will be giving him this metoprolol consistently that should not be an issue. From my perspective, I do not have much else to add to his management. I think he can be discharged home or to some other facility. I want to repeat that my principal concern is the possibility that he will make the same mistake again. He clearly has dementia and his memory has been poor. I spoke with Dr. Alvarado about this concern and he will arrange further assessment and evaluation in this matter. Please call me back if further assistance is desired.
[2016-02-25 12:00] VITALS: BP 156/78
[2016-02-25] MEDS: SODIUM CHLORIDE 0.9% INJ 10 ML SYR IV PRN (12:59)
--- NOTE | 2016-02-25 14:06 | IPN ---
DATE: 02/25/2016 80-year-old gentleman seen at bedside, appears to be pleasant. No complaints. No chest pain, shortness of breath, productive sputum, cough, hemoptysis. No palpitations. OBJECTIVE: Temperature 95.5, pulse 62, respiratory rate is 20, blood pressure is 156/78, SpO2 is 93% on room air. GENERAL: The patient appears to be in no acute distress. He is alert and oriented, pleasant to talk to. HEENT: Unremarkable. LUNGS: Clear. HEART: Irregularly irregular. ABDOMEN: Soft. EXTREMITIES: No edema or calf tenderness. LABORATORY DATA: White count is 5.9, hemoglobin 11.6, platelets are 160,000, sodium 146, potassium 4.3, chloride 108, bicarbonate 30, anion gap 8, BUN is 28, creatinine 1.14, glucose 91, INR is 1.38. ASSESSMENT/PLAN: 1. Atrial fibrillation with rapid ventricular response (RVR). Does appear to be better controlled. Appreciate Dr. Obregon's input. 2. Unintentional overdose of beta kathleen, calcium channel kathleen, angiotensin-converting enzyme (JM) and Eliquis. Was initially admitted to the intensive care unit (ICU) and downgraded. He has not had any significant issues on telemetry other than some rapid ventricular response (RVR) but he was late on getting his doses of medications last night. I again discussed this with Dr. Obregon who is assisting us with managing his medications. 3. Hypoxia secondary to pulmonary congestion from aggressive volume resuscitation. Did have some IV Lasix and is much improved. Does appear to be back to his baseline. 4. Chronic anemia. No acute hemorrhage, hemoglobin is stable. No acute changes. 5. Carotid stenosis status post carotid endarterectomy (CEA). On aspirin and statin. 6. Coronary artery disease status post coronary artery bypass graft (CABG) procedure. On aspirin, statin, and beta kathleen. 7. Dementia. 8. Deep venous thrombosis (DVT) prophylaxis. Resumed Eliquis. DISPOSITION: His issues currently appear to be social in need. Would however like to have a physical therapy home safety evaluation and patient and family services (PFS) is on board regarding possible placement issues. We will watch him on telemetry another 24 hours and if he is stable, we most likely will downgrade him to the general medical floor.
[2016-02-25 16:00] VITALS: BP 160/72
[2016-02-25 20:56] VITALS: BP 132/101
[2016-02-26] VITALS (10 sets, daily range): BP systolic 118–178; BP diastolic 52–95
[2016-02-26] MEDS: SODIUM CHLORIDE 0.9% INJ 10 ML SYR IV PRN (05:35)
[2016-02-26] MEDS: SODIUM CHLORIDE 0.9% INJ 10 ML SYR IV SCH ×3 (05:35→20:51)
[2016-02-26] MEDS: SLF 3 ML SYR IV SCH ×3 (05:35→20:57)
[2016-02-26 05:53] LABS: BASO % 0.2 % (0.0-1.0); EOS # 0.3 K/mm3 (0.0-0.50); EOS % 3.9 % (0.0-3.0); LARGE UNSTAINED CELL # 0.1 K/mm3 (0.0-0.4); LARGE UNSTAINED CELL % 1.5 % (0.0-4.0); LYMPH % 14.7 % (24.0-44.0); MEAN CORPUSCULAR HEMOGLOBIN 32.6 pg (27.0-33.0); MEAN CORPUSCULAR HGB CONC 32.9 g/dl (32.0-36.5); MONO # 0.4 K/mm3 (0.0-0.8); MONO % 5.3 % (0.0-5.0); NEUTROPHILS % 74.3 % (36.0-66.0); PLATELET COUNT, AUTOMATED 192 k/mm3 (150-450); RED CELL DISTRIBUTION WIDTH 13.3 % (11.5-14.5); WHITE BLOOD COUNT 6.7 K/mm3 (4.0-10.0)
[2016-02-26 06:05] LABS: INR 1.32
[2016-02-26 06:20] LABS: ANION GAP 8 MEQ/L (8-16); BLOOD UREA NITROGEN 27 MG/DL (7-18); CALCIUM LEVEL 8.6 MG/DL (8.8-10.2); CARBON DIOXIDE LEVEL 29 MEQ/L (21-32); CHLORIDE LEVEL 106 MEQ/L (98-107); CREATININE FOR GFR 1.12 MG/DL (0.70-1.30); GLOMERULAR FILTRATION RATE > 60.0 (>42); GLUCOSE, FASTING 101 MG/DL (83-110); MAGNESIUM LEVEL 1.6 MG/DL (1.8-2.4); POTASSIUM SERUM 4.4 MEQ/L (3.5-5.1); SODIUM LEVEL 143 MEQ/L (136-145)
[2016-02-26] MEDS ORDERED: MAGNESIUM OXIDE 400 MG TAB (MAG-OX) PO ONE (08:30)
--- NOTE | 2016-02-26 08:57 | IPN ---
DATE: 02/26/2016 Mr. Foster has not had any events. Currently, his heart rate seems to be well-controlled. He was able to ambulate on telemetry even on the stairs without major difficulty. Is probably approaching to discharge. Vital signs: Blood pressure 168/82, heart rate is 60s to 90s. He is afebrile. Saturation is 94% on room air. His weight was documented 59 kg. Jugular venous pulse (JVP) is not up. Lungs are clear to auscultation bilaterally. Heart exam reveals irregular rhythm. No gallop or rub. Abdomen is soft. No peripheral edema. Laboratory talley: Hemoglobin 12.4, hematocrit 38 and platelet count 192,000. Basic metabolic panel potassium 4.4, creatinine 1.1. ASSESSMENT AND PLAN: Mr. Foster is a 80-year-old man with remote history of CABG who presented with intoxication with polysubstance medications ([id number], beta-kathleen, Eliquis, lisinopril, besides others). He initially required pressor support and glucagon infusion. Fortunately with these measures, he avoided placement of a pacemaker. Currently, he is back on his usual medications and his rate is well controlled. Because he remains mostly hypertensive, I am going to reintroduce his angiotensin -converting enzyme (JM) inhibitor after there was recovery of renal function after acute renal failure brought on by likely low cardiac output and overdose of JM inhibitors. At this point, from my perspective, he is ready to go home. My principal concern is some arrangement that this situation does not repeat itself. I will leave it to primary team. Please call contact me if you need additional assistance.
[2016-02-26] MEDS: APIXABAN 5 MG TAB (ELIQUIS) PO SCH ×2 (09:06→20:51)
[2016-02-26] MEDS: METOPROLOL TARTRATE 100 MG TAB PO SCH ×2 (09:06→20:52)
[2016-02-26] MEDS: PANTOPRAZOLE 40MG TAB (PROTONIX) PO SCH (09:06)
[2016-02-26] MEDS: LISINOPRIL 10 MG TAB PO SCH (09:12)
--- NOTE | 2016-02-26 12:16 | IPN ---
DATE: 02/26/2016 80-year-old male seen at bedside. No overnight issues reported. We are seeing how he does with physical therapy today. He does appear to be better rate controlled. He denies any specific complaints. He does have some occasional confusion with his cognitive function but he is pleasant, nonetheless OBJECTIVE: Temperature is 96, pulse is 62 and irregular, respiratory rate is 20, blood pressure (BP) 122/60, SpO2 is 92% on room air. General: Patient appears to in no acute distress, is alert and oriented. HEENT: Unremarkable. Lungs: Clear. Heart: Regular rate and rhythm. Abdomen: Soft. Extremities: No edema. No calf tenderness. LABORATORIES: White count 6.7, hemoglobin 12.4, and platelets are 192,000. Sodium is 143, potassium 4.4, chloride 106, bicarbonate 29, anion gap 8, BUN is 27, creatinine is 1.12, glucose is 101. Magnesium is 1.6, which we will supplement. Cultures negative times two for 5 days. ASSESSMENT AND PLAN: 1. Atrial fibrillation with rapid ventricular response. He is better controlled now and is managed well on current medications. Appreciate Dr. Obregon's input. 2. Unintentional overdose with beta-kathleen, [id number], JM, and Eliquis. Initially admitted to the intensive care, downgraded and he seems to be doing much better. His medications appear to be regulated better to control his heart rate. Dr. Obregon did reintroduce JM inhibitor today for his blood pressure and will continue to see how he does here. My concern is that he is at risk for a repeat episode. Therefore, I would like to have patient and family services involved to see if we can have a better discharge plan versus long-term placement such as assisted living. 3. Hypoxia secondary pulmonary congestion and aggressive volume resuscitation. This has resolved. 4. Chronic anemia. Hemoglobin and hematocrit is stable. No acute changes. Will continue to follow. 5. History of carotid stenosis status post carotid endarterectomy, on aspirin and statin, stable. 6. Coronary artery disease status post CABG procedure. Continue aspirin, statin and beta-kathleen 7. Dementia with cognitive dysfunction. Again, the patient does need to be looked at by patient and family services (PFS) regarding possible placement in an assisted living environment versus better discharge planning to make sure that his medications are accounted for. 8. Deep venous thrombosis (DVT) prophylaxis. On Eliquis DISPOSITION: The patient will have a home safety evaluation today. Will transfer into the general medical floor and give PFS on board to help differentiate safe discharge plan.
[2016-02-27] VITALS (9 sets, daily range): BP systolic 134–185; BP diastolic 65–98
[2016-02-27] MEDS: SLF 3 ML SYR IV SCH (05:25)
[2016-02-27] MEDS: SODIUM CHLORIDE 0.9% INJ 10 ML SYR IV SCH (06:03)
[2016-02-27] MEDS ORDERED: ONDANSETRON 4 MG ORAL DISINTEGRATING TAB (S0181) PO PRN (08:00)
[2016-02-27] MEDS: LISINOPRIL 10 MG TAB PO SCH (08:22)
[2016-02-27] MEDS: APIXABAN 5 MG TAB (ELIQUIS) PO SCH ×2 (08:22→20:11)
[2016-02-27] MEDS: METOPROLOL TARTRATE 100 MG TAB PO SCH ×2 (08:24→20:13)
[2016-02-27] MEDS: PANTOPRAZOLE 40MG TAB (PROTONIX) PO SCH (08:24)
[2016-02-27 08:46] LABS: MEAN CORPUSCULAR HEMOGLOBIN 32.6 pg (27.0-33.0); MEAN CORPUSCULAR HGB CONC 31.2 g/dl (32.0-36.5); RED CELL DISTRIBUTION WIDTH 13.9 % (11.5-14.5); WHITE BLOOD COUNT 7.9 K/mm3 (4.0-10.0)
[2016-02-27 09:00] LABS: MEAN CORPUSCULAR VOLUME 104.6 fl (80.0-96.0)
[2016-02-27 09:01] LABS: ANION GAP 6 MEQ/L (8-16); BLOOD UREA NITROGEN 28 MG/DL (7-18); CALCIUM LEVEL 8.8 MG/DL (8.8-10.2); CARBON DIOXIDE LEVEL 30 MEQ/L (21-32); CHLORIDE LEVEL 108 MEQ/L (98-107); CREATININE FOR GFR 1.13 MG/DL (0.70-1.30); GLOMERULAR FILTRATION RATE > 60.0 (>42); GLUCOSE, FASTING 101 MG/DL (83-110); POTASSIUM SERUM 4.4 MEQ/L (3.5-5.1); SODIUM LEVEL 144 MEQ/L (136-145)
--- NOTE | 2016-02-27 09:31 | REP ---
TWO VIEW CHEST: Two views of the chest are performed and compared to multiple prior studies, most recent of which is 02/21/2016. There is mild cardiomegaly. There is again elevation of the left hemidiaphragm, unchanged. There appears to be an element of vascular congestion with diffuse increased interstitial opacities, right greater than left. This may represent interstitial edema. There is mild patchy bibasilar atelectasis/infiltrate. Multiple sternal wires and mediastinal clips are present. Right central venous catheter is seen with the tip in the superior vena cava. There are multiple old right rib fractures. There are degenerative changes of the spine. On the lateral view posterior costophrenic sulci appear blunted suggesting small effusions. IMPRESSION: Cardiomegaly. There appears to be vascular congestion and interstitial edema. Mild bibasilar atelectasis/infiltrate. On the lateral view posterior costophrenic sulci appear blunted suggesting small effusions. Signed by Patrice Rob MD 02/27/2016 02:04 P
--- NOTE | 2016-02-27 10:43 | IPN ---
DATE: 02/27/2016 80-year-old gentleman seen at bedside. No overnight issues reported. His heart rate has been relatively well-controlled with his atrial fibrillation. No chest pain, shortness breath, productive sputum, cough or hemoptysis. OBJECTIVE: Temperature is 96.4, pulse 63, respiratory rate is 22, blood pressure 158/77, SpO2 is 97% on 2 liters. GENERAL: Alert, occasionally confused. HEENT: Unremarkable. LUNGS: Clear. HEART: Irregularly irregular. ABDOMEN: Soft. EXTREMITIES: No edema. No calf tenderness. LABORATORY DATA: White count is 7.9, hemoglobin 12.5, platelets 209,000, sodium 144, potassium 4.4, chloride 108, bicarb 30, anion gap 6, BUN 28, creatinine 1.13, glucose 101. ASSESSMENT/PLAN: 1. Atrial fibrillation with rapid ventricular response (RVR) better controlled. Appreciate Dr. Obregon's input. 2. Unintentional overdose of beta kathleen, calcium channel kathleen, JM and Eliquis. Initially admitted to the ICU, downgraded and is doing much better since we have reinstituted his medications. However, I am concerned that the patient does have difficulty with cognition. I will reach out to psych to see if we have an evaluation regarding competency. 3. Hypoxia secondary to pulmonary congestion and aggressive volume resuscitation, resolved. 4. Chronic anemia. Hemoglobin and hematocrit are stable. No acute changes. 5. Carotid artery stenosis status post endarterectomy. On aspirin and statin. 6. Coronary artery disease status post coronary artery bypass grafting (CABG) procedure. Continue aspirin, statin, beta kathleen. 7. Dementia with cognitive dysfunction. Again, I will reach out psych. Patient and family services (PFS) is on board and I suspect that he likely needs placement in assisted living versus penitentiary. 8. Deep vein thrombosis (DVT) prophylaxis. On Eliquis. DISPOSITION: As outlined above. Will try to get a better idea of long-term placement issues.
--- NOTE | 2016-02-27 14:24 | ECGEPIP ---
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
--- NOTE | 2016-02-27 14:55 | ECGEPIP ---
Stationary ECG Study [facility] Test Date: 2016-02-20 Pat Name: SANDRA MANCILLA Department: Room: [place] [address] Gender: M Patient Care Provider: JENNIFER : 1935 Requested By: LILIANA SANDHU Order Number: [id number] Reading MD: Harris Obregon Measurements Intervals [place] Rate: 52 P: [place]: 0 QRS: 0 QRSD: 107 T: 91 QT: 440 QTc: 411 Interpretive Statements ATRIAL FLUTTER WITH SLOW VENTRICULAR RESPONSE NONSPECIFIC ST & T-WAVE ABNORMALITY SIMILAR 02/19/16 Electronically Signed On 02-22-2016 19:01:53 EST by Harris Obregon
[2016-02-27] MEDS ORDERED: FUROSEMIDE 20 MG/2 ML VIAL (J1940) IV ONE (20:00)
[2016-02-28] MEDS: ACETAMINOPHEN TAB 650MG DOSE (2X325MG) PO PRN (01:27)
[2016-02-28 04:29] VITALS: BP 148/66
[2016-02-28 08:00] VITALS: BP 140/64
[2016-02-28 08:02] LABS: MEAN CORPUSCULAR HEMOGLOBIN 32.7 pg (27.0-33.0); MEAN CORPUSCULAR HGB CONC 32.3 g/dl (32.0-36.5); MEAN CORPUSCULAR VOLUME 101.3 fl (80.0-96.0); RED CELL DISTRIBUTION WIDTH 13.3 % (11.5-14.5); WHITE BLOOD COUNT 6.7 K/mm3 (4.0-10.0)
--- NOTE | 2016-02-28 08:11 | IPN ---
DATE: 02/28/2016 At bedtime had tachyarrhythmia and last evening was moved from the general medical floor to telemetry. He has not had any further issues. He did receive a dose of his beta-kathleen, which may resolved the issue. Dr. Dee will be covering for Dr. Obregon. OBJECTIVE: Temperature 97.1, pulse 63 and irregular, respiratory rate is 18, blood pressure 148/66, SpO2 is 97% on room air. GENERAL: The patient appears to be in no acute distress, is alert and oriented. HEENT: Unremarkable. LUNGS: Clear. HEART: Irregularly irregular. ABDOMEN: Soft. EXTREMITIES: No edema. No calf tenderness. Laboratory data is pending at this time. ASSESSMENT/PLAN: 1. Atrial fibrillation with rapid ventricular response (RVR). Appreciate Dr. Obregon/Dr. Dee's input. 2. Unintentional overdose of beta-kathleen, calcium channel kathleen, JM and Eliquis. Initially admitted to ICU, downgraded doing better. However, he is having some issues still with ongoing fibrillation. I did have psych evaluate him for competence yesterday. He does appear to have competency, but I am concerned about his ability to regulate his medications. Patient and family services (PFS) is on board with this as well to see if we can help delineate a safe disposition. 3. Hypoxia secondary to pulmonary congestion. Aggressive volume resuscitation, resolved. 4. Chronic anemia. Hemoglobin and hematocrit stable. No acute changes. 5. Coronary artery disease status post endarterectomy. Continue aspirin and statin. 6. Coronary artery disease status post coronary artery bypass grafting (CABG) procedure. Aspirin, statin, and beta-kathleen on board. 7. Dementia with some mild cognitive dysfunction. Psychiatry did believe that the patient does have competency to make decisions. Again, patient and family services (PFS) is on board. 8. Deep vein thrombosis (DVT) prophylaxis on Eliquis. DISPOSITION: As outlined above, we want to delineate a safe disposition plan regarding his medications and followup once he is discharged.
[2016-02-28 08:20] LABS: CALCIUM LEVEL 8.6 MG/DL (8.8-10.2); CREATININE FOR GFR 1.31 MG/DL (0.70-1.30); GLOMERULAR FILTRATION RATE 56.3 (>42); POTASSIUM SERUM 4.3 MEQ/L (3.5-5.1)
[2016-02-28] MEDS: PANTOPRAZOLE 40MG TAB (PROTONIX) PO SCH (08:50)
[2016-02-28] MEDS: APIXABAN 5 MG TAB (ELIQUIS) PO SCH ×2 (08:50→20:16)
[2016-02-28] MEDS: LISINOPRIL 10 MG TAB PO SCH (08:51)
[2016-02-28] MEDS: METOPROLOL TARTRATE 100 MG TAB PO SCH ×2 (08:51→20:16)
[2016-02-28 12:00] VITALS: BP 133/75
--- NOTE | 2016-02-28 15:14 | CR ---
DATE OF CONSULTATION: 02/27/2016 The patient is a 80-year-old unmarried white male who was seen in consultation to determine competency. Mr. Foster accidentally took an overdose of several of his medications for atrial fibrillation and anticoagulation and also had a fall which led to a bruise on the back of his head. These were all accidental and not intentional suicidal overdoses. MENTAL STATUS EXAM: Reveals a cooperative and cheerful elderly senior who has normal speech and robust intellect. He today is oriented times three. Denies any depression, anxiety or suicidal ideation. The patient had one or two points off mini mental status examination. He has some trouble with retention and could not remember four words after five minutes. IMPRESSION: Benign senile forgetfulness. The patient currently objects to the idea of being moved to assisted living noting that most of his friends live right around him and he has constant visitors every day from his ex-students. 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 Mr. Foster does agree to allow the nurse to enter his home and arrange his pill boxes so that we do not have another episode like this. I agree with his idea that it would be quite a loss for him to be moved into another location and being in familiar surroundings surrounded by friends is extremely important for the mental functioning of our senior population. Accordingly, I recommend that we do this compromise solution as I think it would be a reasonable step to take and he appears competent to refuse the idea of assisted living at this time. If however, there is another episode, then we would argue that his confusion has become so great that he is now dangerous to himself and then at that time it would be important to override his stated wishes.
[2016-02-28 16:00] VITALS: BP 135/63
[2016-02-28 20:00] VITALS: BP 123/81
[2016-02-28 23:59] VITALS: BP 123/60
[2016-02-29 04:00] VITALS: BP 159/72
[2016-02-29 08:00] VITALS: BP 132/52
[2016-02-29] MEDS: METOPROLOL TARTRATE 100 MG TAB PO SCH ×2 (09:00→21:55)
[2016-02-29] MEDS: LISINOPRIL 10 MG TAB PO SCH (09:05)
[2016-02-29] MEDS: APIXABAN 5 MG TAB (ELIQUIS) PO SCH ×2 (09:05→21:56)
[2016-02-29] MEDS: PANTOPRAZOLE 40MG TAB (PROTONIX) PO SCH (09:05)
[2016-02-29 12:00] VITALS: BP 140/68
--- NOTE | 2016-02-29 12:09 | IPN ---
DATE: 02/29/2016 80-year-old seen at bedside, resting comfortably. He denies any specific complaints. However, I did notice on telemetry that he had another brief episode last evening of tachycardia of 105-120 beats per minute. We did discuss discharge planning and he states that he does have a neighbor that works at [employer] [facility] [employer] but is unsure of her of background or training, and I will pass this on to patient and family services (PFS) since we are trying to get a better idea of a clear disposition so that he would not intentionally overdose on his medications again. At any rate, he does appear to be quite pleasant today without any specific complaints. OBJECTIVE: Temperature 96.7, pulse is 63 and irregular, respiratory rate is 18, blood pressure (BP) is 132, SpO2 is 96% on 2 liters. General: The patient appears to be in no acute distress. He is alert, oriented. HEENT: unremarkable Heart is irregular. Abdomen is soft. Extremities: No edema. No calf tenderness. LABORATORY DATA: White count 6.7, hemoglobin 13, platelets 241,000. Sodium 146 , potassium 4.3, chloride 106, bicarbonate 32, anion gap 8, BUN 29, creatinine 1.31, glucose is 91. ASSESSMENT AND PLAN: 1. Atrial fibrillation with breakthrough rapid ventricular response (RVR). Appreciate Dr. Obregon/Dr. Dee's input. His pressure appears to be normalized. He does have some intermittent breakthrough tachycardia. Appreciate cardiology' s further modification of his medications as needed. 2. Unintentional overdose of medications including beta-kathleen, calcium kathleen, JM, and Eliquis. Initially admitted to intensive care unit (ICU), downgraded once he was better. My concern is that we need to have a safe disposition plan for him. PFS is on board, and we have discussed different options regarding safety and monitoring. Perhaps a trusted friend or neighbor that can set out his medications and monitor them on a daily basis. 3. Hypoxia secondary pulmonary congestion, resolved. 4. Chronic anemia. Hemoglobin and hematocrit is stable. No acute changes. 5. Carotid artery disease status post endarterectomy. Continue aspirin, statin. 6 . Coronary artery disease status post coronary artery bypass graft. Continue aspirin, statin, beta-kathleen. 7. Dementia with some mild cognitive dysfunction. He does appear to be functional. Psychiatry did see him and felt that he was competent to make decisions. Again, PFS is on board regarding safety of disposition. 8. Deep venous thrombosis (DVT) prophylaxis. On Eliquis. DISPOSITION: We will continue on telemetry for the time being since he does continue to have breakthrough episodes of tachycardia. Again, appreciate cardiology's input and we are currently trying to work out a more definitive safe disposition for him to go home to make sure that he is unlikely to unintentionally overdose on his medications again. JOSED
[2016-02-29] MEDS ORDERED: METOPROLOL TART 50 MG TAB PO ONE (15:00)
[2016-02-29 15:30] VITALS: BP 136/54
[2016-02-29 20:30] VITALS: BP 153/96
[2016-02-29 23:41] VITALS: BP 104/64
[2016-03-01 05:19] VITALS: BP_SYST 130; BP_SYST 148; BP_DIAS 62; BP_DIAS 72
[2016-03-01 08:00] VITALS: BP 167/80
[2016-03-01] MEDS: PANTOPRAZOLE 40MG TAB (PROTONIX) PO SCH (08:29)
[2016-03-01] MEDS: APIXABAN 5 MG TAB (ELIQUIS) PO SCH ×2 (08:29→20:57)
[2016-03-01] MEDS: METOPROLOL TARTRATE 100 MG TAB PO SCH ×2 (08:29→20:57)
[2016-03-01] MEDS: LISINOPRIL 10 MG TAB PO SCH (08:30)
[2016-03-01 09:33] LABS: MEAN CORPUSCULAR HEMOGLOBIN 32.7 pg (27.0-33.0); MEAN CORPUSCULAR HGB CONC 32.2 g/dl (32.0-36.5); MEAN CORPUSCULAR VOLUME 101.6 fl (80.0-96.0); RED CELL DISTRIBUTION WIDTH 13.2 % (11.5-14.5); WHITE BLOOD COUNT 7.6 K/mm3 (4.0-10.0)
[2016-03-01 09:46] LABS: CALCIUM LEVEL 8.7 MG/DL (8.8-10.2); CREATININE FOR GFR 1.33 MG/DL (0.70-1.30); GLOMERULAR FILTRATION RATE 55.4 (>42); POTASSIUM SERUM 4.6 MEQ/L (3.5-5.1)
[2016-03-01 12:00] VITALS: BP 132/60
--- NOTE | 2016-03-01 12:03 | IPN ---
DATE: 03/01/2016 80-year-old gentleman seen at bedside resting comfortably. Denied any fevers, chills, chest pain, palpitations, however, I did notice that he had tachycardia again through the evening last night from 120 to 130. He is back to the mid 60s to 80s this morning. He continues to have elevated heart rates later in the evening and appreciate cardiology's input to help regulate this. PHYSICAL EXAMINATION Temperature is 96.9, pulse 62, respiratory rate is 18, blood pressure 130/62, SpO2 is 94% on 2 liters. GENERAL: The patient appears to be in no acute distress, is alert and oriented, pleasant to talk to. HEENT: Unremarkable. LUNGS: Clear. HEART: Irregular. ABDOMEN: Soft. EXTREMITIES: No edema. No calf tenderness. LABORATORY DATA: White count 7.6, hemoglobin 12.4, platelets 262,000. Sodium 146, potassium 4.6, chloride 108, bicarb 33, anion gap 5, BUN 33, creatinine 1.33, glucose is 137, calcium 8.7. ASSESSMENT/PLAN: 1. Atrial fibrillation with breakthrough rapid ventricular response. Appreciate cardiology's input. Will see if they are able to help us maintain a better resting heart rate, especially in the evening. 2. Unintentional overdose on medications including beta-kathleen, calcium channel kathleen, JM and Eliquis. Initially admitted to the ICU, was downgraded; however, there is still a home safety issue. Patient and family services (PFS) is on board. We have discussed options, however this has not been clarified to the point where we feel that we have a clear disposition at this point. 3. Hypoxia secondary pulmonary congestion, resolved. 4. Chronic anemia. Hemoglobin and hematocrit remain stable with no acute issues. 5. Chronic carotid artery disease status post endarterectomy. Continue aspirin and statin therapy. 6. Coronary artery disease status post CABG procedure. Continue on aspirin, statin, beta kathleen. 7. Dementia with some mild cognitive dysfunction. He appears to be stable and functional. Psychiatry did feel that he was competent to make decisions. However I am still concerned about the safety of him being able to keep track of his home medications. PFS is on board and we are still looking into options regarding his medications distribution. Deep vein thrombosis (DVT) prophylaxis. Currently on Eliquis. DISPOSITION: As outlined above. Appreciate cardiology's input with trying to get better control of his rapid ventricular rate in the evening and PFS is helping to delineate more definitive safety issues for his disposition. Anticipate he is still going to be here through the weekend on telemetry until we get his heart rate adjusted and perhaps discharge sometime in the beginning of the week once there is a clear delineation of his disposition.
[2016-03-01 16:00] VITALS: BP 123/53
[2016-03-01 20:29] VITALS: BP 116/60
[2016-03-02 00:46] VITALS: BP 140/60
[2016-03-02 04:18] VITALS: BP 142/56
[2016-03-02 05:29] LABS: MEAN CORPUSCULAR HEMOGLOBIN 32.3 pg (27.0-33.0); MEAN CORPUSCULAR VOLUME 101.1 fl (80.0-96.0); RED CELL DISTRIBUTION WIDTH 14.2 % (11.5-14.5); WHITE BLOOD COUNT 8.5 K/mm3 (4.0-10.0)
[2016-03-02 05:43] LABS: CALCIUM LEVEL 8.9 MG/DL (8.8-10.2); CREATININE FOR GFR 1.39 MG/DL (0.70-1.30); GLOMERULAR FILTRATION RATE 52.6 (>42); POTASSIUM SERUM 4.5 MEQ/L (3.5-5.1)
[2016-03-02 08:00] VITALS: BP 151/67
[2016-03-02] MEDS: LISINOPRIL 10 MG TAB PO SCH (09:14)
[2016-03-02] MEDS: METOPROLOL TARTRATE 100 MG TAB PO SCH ×2 (09:14→21:06)
[2016-03-02] MEDS: PANTOPRAZOLE 40MG TAB (PROTONIX) PO SCH (09:14)
[2016-03-02] MEDS: APIXABAN 5 MG TAB (ELIQUIS) PO SCH ×2 (09:14→19:54)
--- NOTE | 2016-03-02 12:37 | IPNPDOC ---
Text Note Date of Service The patient was seen on 03/02/16 at 12:36. NOTE Subjective: Patient denies any overnight events. Denies CP/SOB/palpitations. Objective: Vitals: (see below) General: No acute distress, laying comfortably in bed. HEENT: Moist mucous membranes. Neck: No JVD or lymphadenopathy. Cardiac: Irregularly irregular, No murmurs Pulm: Diminished breath sounds and coarse crackles at the bases b/l. No wheezing , rhonchi Abd: NT/ND + BS Ext: No edema or cyanosis Labs (see below) Images: CT Head 02/19/16 IMPRESSION: 1. Small vessel ischemic disease. 2. Moderate volume loss. CXR 02/21/16 Right jugular catheter with tip in SVC unchanged. Sternotomy wires are seen. There is cardiomegaly. Elevation of the left diaphragm and some vascular redistribution and venous hypertension noted. 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 There is some increasing air space opacity in the right medial base and above the left diaphragm suggesting some atelectasis or alveolar infiltrate/edema. Left effusion suspected versus scar. No gross right effusion. No other change. Assessment/Plan 1. Unintentional overdose of BB,CCB,ACEi, Eliquis - initially admitted to ICU. s /p distributive shock; off levophed and dopamine. s/p glucagon drip. 2. AF with RVR; Cont Metoprolol, Cardizem, Eliquis. HR better controlled. 3. Hypoxia 2/2 pulmonary congestion from aggressive volume resuscitation during initial presentation. Resolved. s/p IV lasix. 4. Chronic anemia - no acute hemorrhage. Hb stable, cont to monitor 5. Carotid stenosis s/p CEA. on ASA/statin 6. CAD s/p cabg - on asa, statin, BB 7. Dementia Clear by psychiatry and PT. Will need PFS recommendations for home assistance. DVT prophy: On eliquis VS,Fishbone, I+O VS, Fishbone, I+O Laboratory Tests 03/02/16 04:56 Calcium Level 8.9, Red Blood Count 3.82 L, Mean Corpuscular Volume 101.1 H, Mean Corpuscular Hemoglobin 32.3, Mean Corpuscular Hemoglobin Concent 32.0, Red Cell Distribution Width 14.2 Vital Signs Date Time Temp Pulse Resp B/P Pulse Ox O2 Delivery O2 Flow Rate FiO2 03/02/16 12:00 58 03/02/16 09:14 151/67 03/02/16 08:00 Room Air 03/02/16 08:00 96.8 18 95 03/01/16 20:29 1.0 I&O- Last 24 Hours up to 6 AM 03/02/16 06:00 Intake Total 510 ml Output Total 350 ml Balance 160 ml NGOC BUITRAGO MD Mar 02, 2016 12:37
[2016-03-02 12:45] VITALS: BP 133/62
[2016-03-02 14:00] VITALS: BP 136/62
[2016-03-02 22:00] VITALS: BP 93/56
[2016-03-03 04:12] VITALS: BP 151/76
[2016-03-03 06:00] VITALS: BP 122/68
[2016-03-03 06:38] VITALS: BP 122/68
[2016-03-03 08:13] LABS: MEAN CORPUSCULAR HGB CONC 31.4 g/dl (32.0-36.5); MEAN CORPUSCULAR VOLUME 101.7 fl (80.0-96.0); RED CELL DISTRIBUTION WIDTH 14.2 % (11.5-14.5); WHITE BLOOD COUNT 9.1 K/mm3 (4.0-10.0)
[2016-03-03 08:24] LABS: CALCIUM LEVEL 8.9 MG/DL (8.8-10.2); CREATININE FOR GFR 1.58 MG/DL (0.70-1.30); GLOMERULAR FILTRATION RATE 45.4 (>42); POTASSIUM SERUM 4.6 MEQ/L (3.5-5.1)
[2016-03-03] MEDS: METOPROLOL TARTRATE 100 MG TAB PO SCH ×2 (09:37→21:40)
[2016-03-03] MEDS: PANTOPRAZOLE 40MG TAB (PROTONIX) PO SCH (09:38)
[2016-03-03] MEDS: LISINOPRIL 10 MG TAB PO SCH (09:38)
[2016-03-03] MEDS: APIXABAN 5 MG TAB (ELIQUIS) PO SCH ×2 (09:38→20:22)
--- NOTE | 2016-03-03 12:37 | IPN ---
DATE: 03/03/2016 ATTENDING PHYSICIAN: Dr. Alvarado SUBJECTIVE: Julián was seen while rounding for the hospitalist. I have just seen Mr. Foster for one day. The case was discussed with Dr. Sanford yesterday. He feels well. He is ambulating well. Plan per discussion with Dr. Sanford is discharge tomorrow after patient and family services (PFS) gets involved today. PHYSICAL EXAMINATION: Blood pressure 122/60, pulse 68, respiratory rate 16, oxygen saturation 89% on room air. GENERAL APPEARANCE: Well-developed, well-nourished, in no distress. LUNGS: Clear. HEART: Irregular rate and rhythm, 1-2 over 6 systolic ejection murmur. No peripheral edema. ABDOMEN: Soft, nontender. LABORATORY DATA: No labs ordered for today. PLAN: He has passed his home safety evaluation. Will get some lab work for tomorrow. He might need home oxygen if he desaturates while ambulating.
[2016-03-03 14:00] VITALS: BP 133/66
[2016-03-03 22:00] VITALS: BP 136/83
[2016-03-04 06:00] VITALS: BP 129/71
[2016-03-04 07:03] LABS: MEAN CORPUSCULAR HEMOGLOBIN 32.6 pg (27.0-33.0); MEAN CORPUSCULAR HGB CONC 31.3 g/dl (32.0-36.5); MEAN CORPUSCULAR VOLUME 104.2 fl (80.0-96.0); RED CELL DISTRIBUTION WIDTH 14.4 % (11.5-14.5); WHITE BLOOD COUNT 9.4 K/mm3 (4.0-10.0)
[2016-03-04 07:21] LABS: CALCIUM LEVEL 8.7 MG/DL (8.8-10.2); CREATININE FOR GFR 1.83 MG/DL (0.70-1.30); GLOMERULAR FILTRATION RATE 38.3 (>42); POTASSIUM SERUM 4.6 MEQ/L (3.5-5.1)
[2016-03-04] MEDS ORDERED: NS 500 ML IV SCH (07:45)
[2016-03-04] MEDS: METOPROLOL TARTRATE 100 MG TAB PO SCH ×2 (09:53→21:11)
[2016-03-04] MEDS: APIXABAN 5 MG TAB (ELIQUIS) PO SCH ×2 (09:53→21:11)
[2016-03-04] MEDS: PANTOPRAZOLE 40MG TAB (PROTONIX) PO SCH (09:53)
[2016-03-04 14:00] VITALS: BP 134/62
[2016-03-04] MEDS ORDERED: NS 500 ML IV ONE (14:43)
--- NOTE | 2016-03-04 15:13 | IPNPDOC ---
Text Note Date of Service The patient was seen on 03/04/16 at 15:13. NOTE Subjective: Patient denies any overnight events. Denies CP/SOB/palpitations. Objective: Vitals: (see below) General: No acute distress, laying comfortably in bed. HEENT: Moist mucous membranes. Neck: No JVD or lymphadenopathy. Cardiac: Irregularly irregular, No murmurs Pulm: Diminished breath sounds and coarse crackles at the bases b/l. No wheezing , rhonchi Abd: NT/ND + BS Ext: No edema or cyanosis Labs (see below) Images: CT Head 02/19/16 IMPRESSION: 1. Small vessel ischemic disease. 2. Moderate volume loss. CXR 02/21/16 Right jugular catheter with tip in SVC unchanged. Sternotomy wires are seen. There is cardiomegaly. Elevation of the left diaphragm and some vascular redistribution and venous hypertension noted. 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 There is some increasing air space opacity in the right medial base and above the left diaphragm suggesting some atelectasis or alveolar infiltrate/edema. Left effusion suspected versus scar. No gross right effusion. No other change. Assessment/Plan 1. Unintentional overdose of BB,CCB,ACEi, Eliquis - initially admitted to ICU. s /p distributive shock; off levophed and dopamine. s/p glucagon drip. 2. AF with RVR; Cont Metoprolol, Cardizem, Eliquis. HR better controlled. 3. Hypoxia 2/2 pulmonary congestion from aggressive volume resuscitation during initial presentation. Resolved. s/p IV lasix. 4. Chronic anemia - no acute hemorrhage. Hb stable, cont to monitor 5. Carotid stenosis s/p CEA. on ASA/statin 6. CAD s/p cabg - on asa, statin, BB 7. Dementia Clear by psychiatry and PT. Pending PFS recommendations for home assistance. DVT prophy: On eliquis VS,Fishbone, I+O VS, Fishbone, I+O Laboratory Tests 03/04/16 06:39 Calcium Level 8.7 L, Red Blood Count 3.71 L, Mean Corpuscular Volume 104.2 H, Mean Corpuscular Hemoglobin 32.6, Mean Corpuscular Hemoglobin Concent 31.3 L, Red Cell Distribution Width 14.4 Vital Signs Date Time Temp Pulse Resp B/P Pulse Ox O2 Delivery O2 Flow Rate FiO2 03/04/16 14:00 98.4 69 18 134/62 95 Room Air 03/01/16 20:29 1.0 I&O- Last 24 Hours up to 6 AM 03/04/16 06:00 Intake Total 480 ml Balance 480 ml NGOC BUITRAGO MD Mar 04, 2016 15:13
[2016-03-04 17:05] VITALS: BP 110/60
[2016-03-04 22:00] VITALS: BP 138/86
[2016-03-05 06:00] VITALS: BP 167/89
[2016-03-05 06:43] LABS: MEAN CORPUSCULAR HEMOGLOBIN 32.6 pg (27.0-33.0); MEAN CORPUSCULAR HGB CONC 32.4 g/dl (32.0-36.5); MEAN CORPUSCULAR VOLUME 100.5 fl (80.0-96.0); RED CELL DISTRIBUTION WIDTH 14.4 % (11.5-14.5); WHITE BLOOD COUNT 9.6 K/mm3 (4.0-10.0)
[2016-03-05 06:58] LABS: CALCIUM LEVEL 8.8 MG/DL (8.8-10.2); CREATININE FOR GFR 1.45 MG/DL (0.70-1.30); GLOMERULAR FILTRATION RATE 50.1 (>42); POTASSIUM SERUM 4.7 MEQ/L (3.5-5.1)
[2016-03-05] MEDS: PANTOPRAZOLE 40MG TAB (PROTONIX) PO SCH (08:49)
[2016-03-05] MEDS: APIXABAN 5 MG TAB (ELIQUIS) PO SCH ×2 (08:49→20:46)
[2016-03-05] MEDS: METOPROLOL TARTRATE 100 MG TAB PO SCH ×2 (08:57→20:47)
[2016-03-05 11:50] VITALS: BP 135/83
[2016-03-05 14:00] VITALS: BP 139/91
[2016-03-05] MEDS: TAMSULOSIN 0.4 MG CAP PO SCH (14:45)
--- NOTE | 2016-03-05 16:19 | IPNPDOC ---
Text Note Date of Service The patient was seen on 03/05/16 at 16:17. NOTE Subjective: Patient denies any overnight events. Denies CP/SOB/palpitations. Has urinary retention today. Objective: Vitals: (see below) General: No acute distress, laying comfortably in bed. HEENT: Moist mucous membranes. Neck: No JVD or lymphadenopathy. Cardiac: Irregularly irregular, No murmurs Pulm: Diminished breath sounds and coarse crackles at the bases b/l. No wheezing , rhonchi Abd: NT/ND + BS Ext: No edema or cyanosis Labs (see below) Images: CT Head 02/19/16 IMPRESSION: 1. Small vessel ischemic disease. 2. Moderate volume loss. CXR 02/21/16 Right jugular catheter with tip in SVC unchanged. Sternotomy wires are seen. There is cardiomegaly. Elevation of the left diaphragm and some vascular redistribution and venous hypertension noted. 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 There is some increasing air space opacity in the right medial base and above the left diaphragm suggesting some atelectasis or alveolar infiltrate/edema. Left effusion suspected versus scar. No gross right effusion. No other change. Assessment/Plan 1. Unintentional overdose of BB,CCB,ACEi, Eliquis - initially admitted to ICU. s /p distributive shock; off levophed and dopamine. s/p glucagon drip. 2. AF with RVR; Cont Metoprolol, Cardizem, Eliquis. HR better controlled. 3. Hypoxia 2/2 pulmonary congestion from aggressive volume resuscitation during initial presentation. Resolved. s/p IV lasix. 4. Chronic anemia - no acute hemorrhage. Hb stable, cont to monitor 5. Carotid stenosis s/p CEA. on ASA/statin 6. CAD s/p cabg - on asa, statin, BB 7. Dementia 8. Urinary retention - Apparently had a Quintanilla placed at a different institution , with plan to follow-up to urology prior to his admission. We will attempt to replace the Quintanilla and have him follow-up with urology outpatient Clear by psychiatry and PT. Pending PFS recommendations for home assistance. DVT prophy: On eliquis VS,Fishbone, I+O VS, Fishbone, I+O Laboratory Tests 03/05/16 06:01 Calcium Level 8.8, Red Blood Count 3.64 L, Mean Corpuscular Volume 100.5 H, Mean Corpuscular Hemoglobin 32.6, Mean Corpuscular Hemoglobin Concent 32.4, Red Cell Distribution Width 14.4 Vital Signs Date Time Temp Pulse Resp B/P Pulse Ox O2 Delivery O2 Flow Rate FiO2 03/05/16 14:00 96.9 69 19 139/91 93 Room Air 03/01/16 20:29 1.0 I&O- Last 24 Hours up to 6 AM 03/05/16 06:00 Intake Total 1425 ml Output Total 685 ml Balance 740 ml NGOC BUITRAGO MD Mar 05, 2016 16:19
[2016-03-05] MEDS ORDERED: LIDOCAINE 2% 5ML JELLY UROJET TOP ONE (17:30)
--- NOTE | 2016-03-05 20:11 | SMCUROLCON ---
Urology Consultation General Date of Consultation 03/05/16 Reason For Consultation Urinary Retention, Difficult Catheter Placement History of Present Illness This is a 80 y/o M w/ multiple medical problems, including BPH (s/p unknown prostate surgery by a urologist in [place] a few years ago), admitted to the hospital about 2 weeks ago for management of hypotension. Urology is consulted today for assistance in placing a catheter. Per nursing the patient was admitted w/ a catheter in place that was placed at an outside institution for postop urinary retention (patient had a CEA a week or so prior to admission here ). The plan was for the patient to f/u w/ his urologist for catheter removal and voiding trial. Since he was admitted her prior to a visit w/ his urologist , the primary team removed his catheter and per the patient he has had difficulty voiding since then. Per report he had a lot of difficulty last night and attempts were made to place a catheter and were unsuccessful. They were successful in straight catheterizing the patient per report. Attempts were made again today to catheterize the patient with regular catheters and coude catheters and all attempts were unsuccessful. Despite voiding small amounts, the patient has been bladder scanned for over 500cc. The patient notes having a slow urinary stream and feelings of incomplete emptying. He denies dysuria or hematuria. He does not recall details of his voiding function prior to catheter placement at the other hospital. He does not recall details of any prior urologic procedures. Past Medical History Medical History CAD, CVD, BPH Surgical Hstory 3v CABG, CEA Medications Current Medications Current Medications Acetaminophen (Tylenol) 650 mg Q4HP PRN PO MILD PAIN OR FEVER Last administered on 02/28/16at 01:27; Start 02/19/16 at 13:30; Stop 03/20/16 at 13: 29 Apixaban (Eliquis) 5 mg BID PO Last administered on 03/05/16at 08:49; Start at 09:00; Stop 03/07/16 at 08:59 Calcium Gluconate (Calcium Gluconate) 1,000 mg STK-MED ONCE As Ordered ; Start 02/19/16 at 15:26; Stop 02/19/16 at 15:27; Status DC Calcium Gluconate 1000 mg/Dextrose 110 ml @ 110 mls/hr DRIP IV ; Start at 09:15; Stop 03/21/16 at 09:14; Status Cancel Calcium Gluconate 1000 mg/Dextrose 110 ml @ 110 mls/hr ONCE ONCE IV Last administered on 02/20/16at 09:02; Start 02/20/16 at 08:45; Stop 02/20/16 at 09 :05; Status DC Calcium Gluconate/ Dextrose (Calcium Gluconate/ Dextrose 5% Mini-Bag Plus) 110 ml @ 110 mls/hr 1T@10,11 IV Last administered on 02/20/16at 11:15; Start at 10:00; Stop 02/20/16 at 11:59; Status DC Calcium Gluconate/ Dextrose (Calcium Gluconate/ Dextrose 5% Mini-Bag Plus) 110 ml @ 110 mls/hr ONCE ONCE IV ; Start 02/19/16 at 13:45; Stop 02/19/16 at 16: 53; Status DC Dextrose/Lactated Ringer's (Dextrose 5% Lactated Ringers) 1,000 ml @ 100 mls/ hr Q10H IV Last administered on 02/21/16at 00:29; Start 02/19/16 at 17:00; Stop 02/21/16 at 08:51; Status DC Diltiazem HCl (Cardizem) 10 mg STAT STAT IV Last administered on 02/24/16at 18 :44; Start 02/24/16 at 18:30; Stop 02/24/16 at 18:34; Status DC Diltiazem HCl (Cardizem) 30 mg Q8H PO Last administered on 03/04/16at 04:06; Start 03/02/16 at 20:00; Stop 03/04/16 at 07:30; Status DC Diltiazem HCl (Cardizem) 60 mg NOW ONCE PO Last administered on 02/24/16at 18: 44; Start 02/24/16 at 18:45; Stop 02/24/16 at 18:46; Status DC Diltiazem HCl 30 mg 30 mg Q6H PO Last administered on 03/02/16at 05:23; Start 02/23/16 at 12:00; Stop 03/02/16 at 15:32; Status DC Diltiazem HCl 30 mg 30 mg Q6H PO Last administered on 03/05/16at 18:20; Start 03/04/16 at 12:00; Stop 04/03/16 at 11:59 Dopamine HCl 400 mg 400 mg STK-MED ONCE As Ordered ; Start 02/19/16 at 16:18; Stop 02/19/16 at 16:19; Status DC Dopamine HCl/IV Miscellaneous Supplies (Intropin) 500 ml @ 5 mls/hr DRIP IV Last administered on 02/20/16at 17:49; Start 02/19/16 at 16:30; Stop 02/21/16 at 08:51; Status DC Furosemide (Lasix) 20 mg ONCE ONCE IV Last administered on 02/27/16at 20:11; Start 02/27/16 at 20:00; Stop 02/27/16 at 20:04; Status DC Furosemide (Lasix) 80 mg ONCE ONCE IV Last administered on 02/22/16at 08:18; Start 02/22/16 at 07:45; Stop 02/22/16 at 07:47; Status DC Glucagon (Glucagon) 1 mg STK-MED ONCE As Ordered ; Start 02/19/16 at 15:04; Stop 02/19/16 at 15:05; Status DC Glucagon (Glucagon) 2 mg STK-MED ONCE As Ordered ; Start 02/19/16 at 15:01; Stop 02/19/16 at 15:02; Status DC Glucagon 1 mg 1 mg ASDIRECTED PRN IV SEE LABEL COMMENTS; Start 02/19/16 at 17: 00; Stop 02/19/16 at 17:03; Status DC Glucagon 10 mg/ Dextrose 100 ml @ 7.5 mls/hr [id number] IV Last administered on 02/20/16at 21:46; Start 02/19/16 at 18:00; Stop 02/21/16 at 08:51; Status DC Heparin Sodium (Heparin Lock Flush 10units/ml) 10 units ASDIRECTED PRN IV SEE LABEL COMMENTS Last administered on 02/26/16at 05:35; Start 02/21/16 at 17:15; Stop 02/27/16 at 12:51; Status DC Heparin Sodium (Heparin Lock Flush 10units/ml) 10 units HLF IV Last administered on 02/27/16at 06:03; Start 02/21/16 at 22:00; Stop 02/27/16 at 12 :51; Status DC Home Med (Med Rec Complete!) ASDIRECTED XX ; Start 02/19/16 at 12:00; Stop at 12:00; Status DC Influenza Virus Vaccine (Fluzone High Dose) 0.5 ml ASDIRECTED IM ; Start at 18:15; Stop 03/20/16 at 18:14; Status Cancel Insulin Human Lispro (HumaLOG INSULIN) SEE PROTOCOL TABLE AC SC Last administered on 02/23/16at 17:54; Start 02/20/16 at 17:30; Stop 02/24/16 at 08 :16; Status DC Insulin Human Lispro (HumaLOG INSULIN) SEE PROTOCOL TABLE Q6H SC Last administered on 02/20/16at 11:58; Start 02/19/16 at 18:00; Stop 02/20/16 at 12 :08; Status DC Insulin Human Lispro (HumaLOG INSULIN) SEE PROTOCOL TABLE QHS SC ; Start at 21:00; Stop 02/24/16 at 08:16; Status DC Lidocaine HCl (Lidocaine 2% Urojet) FOR CATHETER INSERTION ONCE ONCE TOP Last administered on 03/05/16at 18:10; Start 03/05/16 at 17:30; Stop 03/05/16 at 17 :38; Status DC Lisinopril (Prinivil) 10 mg DAILY PO Last administered on 03/03/16at 09:38; Start 02/26/16 at 09:00; Stop 03/04/16 at 07:31; Status DC Magnesium Oxide (Mag-Ox) 400 mg ONCE ONCE PO Last administered on 02/26/16at 09:12; Start 02/26/16 at 08:30; Stop 02/26/16 at 08:31; Status DC Magnesium Sulfate/ Dextrose/IV Miscellaneous Supplies (Mag Sulf 1gm/ 100ml (Mag Run)) 100 ml @ 100 mls/hr ONCE ONCE IV Last administered on 02/24/16at 08:22 ; Start 02/24/16 at 08:00; Stop 02/24/16 at 08:59; Status DC Metoclopramide HCl (Reglan) 5 mg Q6H IV Last administered on 02/24/16at 05:23; Start 02/19/16 at 18:00; Stop 02/24/16 at 08:16; Status DC Metoprolol Tartrate (Lopressor) 25 mg NOW ONCE PO Last administered on at 16:41; Start 02/21/16 at 16:45; Stop 02/21/16 at 16:46; Status DC Metoprolol Tartrate (Lopressor) 25 mg ONCE ONCE PO Last administered on at 17:50; Start 02/22/16 at 17:45; Stop 02/22/16 at 17:47; Status DC Metoprolol Tartrate (Lopressor) 25 mg Q6H PO Last administered on 02/22/16at 17 :09; Start 02/22/16 at 00:00; Stop 02/22/16 at 17:40; Status DC Metoprolol Tartrate (Lopressor) 50 mg ONCE ONCE PO Last administered on at 15:27; Start 02/29/16 at 15:00; Stop 02/29/16 at 15:01; Status DC Metoprolol Tartrate (Lopressor) 50 mg Q6H PO Last administered on 02/24/16at 05 :49; Start 02/23/16 at 00:00; Stop 02/24/16 at 11:10; Status DC Metoprolol Tartrate (Lopressor) 100 mg BID PO Last administered on 03/05/16at 08:57; Start 02/24/16 at 21:00; Stop 03/25/16 at 20:59 Norepinephrine Bitartrate 8 mg 8 mg STK-MED ONCE As Ordered ; Start 02/20/16 at 08:45; Stop 02/20/16 at 08:46; Status DC Norepinephrine Bitartrate 8 mg/ Dextrose 508 ml @ 18.8 mls/hr Q24H IV ; Start 02/20/16 at 21:00; Stop 02/23/16 at 07:55; Status DC Norepinephrine Bitartrate 8 mg/ Dextrose 508 ml @ 5 mls/hr Q24H IV ; Start at 09:00; Stop 02/20/16 at 09:10; Status DC Norepinephrine Bitartrate 8 mg/ Dextrose 508 ml @ 5 mls/hr Q24H IV Last administered on 02/20/16at 09:14; Start 02/20/16 at 09:00; Stop 02/20/16 at 20 :59; Status DC Norepinephrine Bitartrate/ Dextrose (Levophed/ Dextrose 5%) 508 ml @ 5 mls/hr Q24H IV ; Start 02/20/16 at 09:00; Stop 02/20/16 at 09:00; Status DC Ondansetron HCl (Zofran Odt) 4 mg Q6HP PRN PO NAUSEA OR VOMITING; Start at 08:00; Stop 03/28/16 at 07:59 Ondansetron HCl (Zofran) 4 mg Q4HP PRN IV NAUSEA OR VOMITING Last administered on 02/20/16at 01:24; Start 02/19/16 at 18:15; Stop 02/27/16 at 08:22; Status DC Ondansetron HCl (Zofran) 4 mg Q6HP PRN PO NAUSEA OR VOMITING Last administered on 02/19/16at 17:56; Start 02/19/16 at 13:30; Stop 02/19/16 at 18:21; Status DC Ondansetron HCl (Zofran) 4 mg STK-MED ONCE As Ordered ; Start 02/19/16 at 15:24 ; Stop 02/19/16 at 15:25; Status DC Pantoprazole Sodium 40 mg 40 mg DAILY PO Last administered on 03/05/16at 08:49 ; Start 02/19/16 at 09:00; Stop 03/20/16 at 08:59 Pneumococcal Polyvalent Vaccine (Prevnar 13) 0.5 ml ASDIRECTED IM ; Start 02/18 at 18:15; Stop 02/24/16 at 15:18; Status DC Pneumococcal Polyvalent Vaccine (Prevnar 13) 0.5 ml ONCE ONCE IM Last administered on 02/25/16at 08:07; Start 02/25/16 at 09:00; Stop 02/25/16 at 09 :01; Status DC Sodium Chloride 500 ml @ 60 mls/hr Q8H20M IV Last administered on 03/04/16at 07:45; Start 03/04/16 at 07:45; Stop 03/04/16 at 14:43; Status DC Sodium Chloride 1,000 ml @ 50 mls/hr Q20H IV Last administered on 02/19/16at 16:50; Start 02/19/16 at 13:30; Stop 02/20/16 at 08:34; Status DC Sodium Chloride (Nacl 0.9%) 500 ml @ 60 mls/hr Q8H20M ONCE IV Last administered on 03/04/16at 14:43; Start 03/04/16 at 14:43; Stop 03/04/16 at 16 :04; Status DC Sodium Chloride (Nacl 0.9%) 1,000 ml BOLUS ONCE IV Last administered on at 10:35; Start 02/20/16 at 10:00; Stop 02/20/16 at 10:01; Status DC Sodium Chloride (Nacl 0.9%) 1,000 ml BOLUS ONCE IV Last administered on at 17:00; Start 02/20/16 at 16:45; Stop 02/20/16 at 16:46; Status DC Sodium Chloride (Saline Lock Flush) 2 ml ASDIRECTED PRN IV SEE LABEL COMMENTS; Start 02/21/16 at 17:15; Stop 02/27/16 at 12:51; Status DC Sodium Chloride (Saline Lock Flush) 2 ml SLF IV Last administered on at 05:13; Start 02/21/16 at 22:00; Stop 02/27/16 at 12:51; Status DC Sodium Chloride (Saline Lock Flush) 10 ml ASDIRECTED PRN IV SEE LABEL COMMENTS Last administered on 02/26/16at 05:35; Start 02/21/16 at 17:15; Stop 02/27/16 at 12:51; Status DC Sodium Chloride (Saline Lock Flush) 10 ml SLF IV Last administered on at 06:03; Start 02/21/16 at 22:00; Stop 02/27/16 at 12:51; Status DC Sodium Chloride 1000 ml 1,000 ml BOLUS ONCE IV Last administered on at 01:37; Start 02/20/16 at 01:30; Stop 02/20/16 at 01:35; Status DC Tamsulosin HCl (Flomax) 0.4 mg DAILY PO Last administered on 03/05/16at 14:45; Start 03/05/16 at 09:00; Stop 04/04/16 at 08:59 Allergies Allergies: Coded Allergies: Bee Venom (Unverified Allergy, Unknown, 02/19/16) Review of Systems Constitutional: Denies: Chills, Fever Skin: Denies: Rash Pulmonary: Reports: Dyspnea Cardiovascular: Denies Chest Pain Gastrointestinal: Denies: Nausea, Vomiting Genitourinary: Reports: Retention Psych: Reports: Mood Normal Physical Examination General Exam: : Alert: Cooperative ENT EXAM: : Atraumatic Chest Exam: : Normal air movement Heart Exam: : Rate Normal Abdomen Exam: : Soft Male Exam circumcised phallus w/o lesions; b/l descended testicles Skin Exam: : Nl turgor and temperature Psych Exam: : Mental status NL: Mood NL Vital Signs/I&O Vital Signs Date Time Temp Pulse Resp B/P Pulse Ox O2 Delivery O2 Flow Rate FiO2 03/05/16 18:20 69 139/91 03/05/16 14:00 96.9 19 93 Room Air 03/01/16 20:29 1.0 I&O- Last 24 Hours up to 6 AM 03/05/16 06:00 Intake Total 1425 ml Output Total 685 ml Balance 740 ml Laboratory Data 24H Labs Laboratory Tests 2 03/05/16 06:01: Anion Gap 8, Blood Urea Nitrogen 37H, Creatinine 1.45H, Sodium Level 144, Potassium Level 4.7, Chloride Level 108H, Carbon Dioxide Level 28, Calcium Level 8.8, Glomerular Filtration Rate 50.1 CBC/BMP Laboratory Tests 03/05/16 06:01 Calcium Level 8.8, Red Blood Count 3.64 L, Mean Corpuscular Volume 100.5 H, Mean Corpuscular Hemoglobin 32.6, Mean Corpuscular Hemoglobin Concent 32.4, Red Cell Distribution Width 14.4 Microbiology Microbiology 02/24/16 MRSA Screen - Final, Complete Assessment This is a 80 y/o M w/ urinary retention and a difficult catheter placement. I tried placing a 16Fr and then an 18Fr coude catheter and was unsuccessful. Given concern for either a urethral stricture or a false passage, the patient was consented for a bedside cystoscopy. Cystoscopy was then performed under sterile conditions. It was notable for a bulbous urethral stricture. A wire was advanced pass the stricture into the bladder and this wire was utilized to dilate the stricture to 22Fr. I subsequently advanced an 18Fr [place] tip catheter over the wire into the bladder. The wire was removed w/ subsequent outflow of 600cc of clear urine. Plan - bedside cystoscopy w/ catheter placement over a wire was performed - cipro 500mg bid x7 days ordered given the urinary tract instrumentation - his catheter should not be removed by anyone other than urology - upon discharge, he should be discharged home w/ the catheter in place w/ the plan for him to f/u w/ his urologist for catheter removal and voiding trial in the office CARLOS AGUILAR MD Mar 05, 2016 20:11
[2016-03-05] MEDS: CIPROFLOXACIN 500 MG TAB PO SCH (20:46)
[2016-03-05 22:00] VITALS: BP 131/54
[2016-03-06] VITALS (11 sets, daily range): BP systolic 80–172; BP diastolic 50–95
[2016-03-06] MEDS: CIPROFLOXACIN 500 MG TAB PO SCH ×2 (05:11→18:06)
[2016-03-06 06:54] LABS: MEAN CORPUSCULAR HEMOGLOBIN 31.7 pg (27.0-33.0); MEAN CORPUSCULAR HGB CONC 31.6 g/dl (32.0-36.5); MEAN CORPUSCULAR VOLUME 100.3 fl (80.0-96.0); RED CELL DISTRIBUTION WIDTH 13.6 % (11.5-14.5); WHITE BLOOD COUNT 6.8 K/mm3 (4.0-10.0)
[2016-03-06 07:05] LABS: CALCIUM LEVEL 8.5 MG/DL (8.8-10.2); CREATININE FOR GFR 1.47 MG/DL (0.70-1.30); GLOMERULAR FILTRATION RATE 49.3 (>42)
[2016-03-06] MEDS: PANTOPRAZOLE 40MG TAB (PROTONIX) PO SCH (09:08)
[2016-03-06] MEDS: TAMSULOSIN 0.4 MG CAP PO SCH (09:08)
[2016-03-06] MEDS: METOPROLOL TARTRATE 100 MG TAB PO SCH ×2 (09:08→20:58)
[2016-03-06] MEDS: APIXABAN 5 MG TAB (ELIQUIS) PO SCH ×2 (09:08→20:57)
--- NOTE | 2016-03-06 09:11 | REP ---
AP portable sitting chest radiograph 03/06/2016 Indication: Congestion Comparison: PA and lateral chest 02/26/2016, portable chest 02/21/2016, 02/19/2016 Cardiac silhouette is mildly enlarged without change. There has been prior median sternotomy. Cardiomediastinal silhouette is stable in appearance. There is cephalization of pulmonary vasculature consistent with pulmonary venous hypertension. There are small bilateral pleural effusions and bibasilar atelectatic changes . Previous right IJ venous catheter has been removed. There is no pneumothorax Impression 1. Small bilateral pleural effusions represent interval change from prior study 02/26/16. 2. Pulmonary venous hypertension. Bibasilar atelectatic changes Signed by Sophia Petersen MD 03/06/2016 09:02 A
--- NOTE | 2016-03-06 13:30 | IPNPDOC ---
Text Note Date of Service The patient was seen on 03/06/16 at 13:28. NOTE Subjective: Patient was confused overnight after having a Quintanilla placed back. Denies CP/SOB/palpitations. Objective: Vitals: (see below) General: No acute distress, laying comfortably in bed. HEENT: Moist mucous membranes. Neck: No JVD or lymphadenopathy. Cardiac: Irregularly irregular, No murmurs Pulm: Diminished breath sounds and coarse crackles at the bases b/l. No wheezing , rhonchi Abd: NT/ND + BS Ext: No edema or cyanosis Labs (see below) Images: CT Head 02/19/16 IMPRESSION: 1. Small vessel ischemic disease. 2. Moderate volume loss. CXR 02/21/16 Right jugular catheter with tip in SVC unchanged. Sternotomy wires are seen. There is cardiomegaly. Elevation of the left diaphragm and some vascular redistribution and venous hypertension noted. 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 There is some increasing air space opacity in the right medial base and above the left diaphragm suggesting some atelectasis or alveolar infiltrate/edema. Left effusion suspected versus scar. No gross right effusion. No other change. Assessment/Plan 1. Unintentional overdose of BB,CCB,ACEi, Eliquis - initially admitted to ICU. s /p distributive shock; off levophed and dopamine. s/p glucagon drip. 2. AF with RVR; Cont Metoprolol, Cardizem, Eliquis. HR better controlled. 3. Hypoxia 2/2 pulmonary congestion from aggressive volume resuscitation during initial presentation. Resolved. s/p IV lasix. 4. Chronic anemia - no acute hemorrhage. Hb stable, cont to monitor 5. Carotid stenosis s/p CEA. on ASA/statin 6. CAD s/p cabg - on asa, statin, BB 7. Dementia 8. Urinary retention - Apparently had a Quintanilla placed at a different institution , with plan to follow-up to urology prior to his admission. Dr. Conti had performed a cystoscopy at bedside with a bulbous urethral stricture noted. Quintanilla is in place now. Cipro 500mg BID x 7 days given instrumentation per Urology. Will need outpt f/u. Clear by psychiatry and PT. Pending PFS recommendations for home assistance. DVT prophy: On eliquis VS,Fishbone, I+O VS, Fishbone, I+O Laboratory Tests 03/06/16 06:24 Calcium Level 8.5 L, Red Blood Count 3.75 L, Mean Corpuscular Volume 100.3 H, Mean Corpuscular Hemoglobin 31.7, Mean Corpuscular Hemoglobin Concent 31.6 L, Red Cell Distribution Width 13.6 Vital Signs Date Time Temp Pulse Resp B/P Pulse Ox O2 Delivery O2 Flow Rate FiO2 03/06/16 12:19 130 142/61 03/06/16 09:13 Room Air 03/06/16 06:00 97.0 18 91 1.0 I&O- Last 24 Hours up to 6 AM 03/06/16 06:00 Intake Total 330 ml Output Total 1270 ml Balance -940 ml NGOC BUITRAGO MD Mar 06, 2016 13:30
[2016-03-06] MEDS ORDERED: cefTRIAXone SOD 1 GM in D5W MINI-BAG PLUS 50 ML IV SCH (14:00)
[2016-03-06] MEDS ORDERED: SODIUM CHLORIDE 0.9% 1000 ML IV ONE (14:15)
[2016-03-07] MEDS ORDERED: diphenhydrAMINE INJ 50MG/ML VIAL (J1200) IV ONE (02:30)
[2016-03-07] MEDS: CIPROFLOXACIN 500 MG TAB PO SCH ×2 (05:40→18:11)
[2016-03-07 06:00] VITALS: BP 130/78
[2016-03-07 06:03] LABS: MEAN CORPUSCULAR HEMOGLOBIN 33.2 pg (27.0-33.0); MEAN CORPUSCULAR VOLUME 100.8 fl (80.0-96.0); RED CELL DISTRIBUTION WIDTH 14.4 % (11.5-14.5); WHITE BLOOD COUNT 6.1 K/mm3 (4.0-10.0)
[2016-03-07 06:10] LABS: CALCIUM LEVEL 8.6 MG/DL (8.8-10.2); CREATININE FOR GFR 1.62 MG/DL (0.70-1.30); GLOMERULAR FILTRATION RATE 44.1 (>42); POTASSIUM SERUM 4.5 MEQ/L (3.5-5.1)
--- NOTE | 2016-03-07 08:03 | RO ---
DATE OF PROCEDURE: 03/05/2016 PREPROCEDURE DIAGNOSIS: Urinary retention. POSTPROCEDURE DIAGNOSES: Urethral stricture, urinary retention. PROCEDURE: Cystoscopy with dilation of urethral stricture and catheter placement over a wire. SURGEON: Dr. Greg Conti. FERN GATHERER: None. ANESTHESIA: Transurethral lidocaine gel. OPERATIVE INDICATIONS: This is a 80-year-old male with a past medical history significant for benign prostatic hyperplasia with prior prostate surgery. He was admitted to the hospital a few weeks ago for hypotension and upon admission , he did have a catheter already in place. This catheter was placed at an outside institution a few days prior due to postoperative urinary retention as he had recently had a carotid endarterectomy. On his admission here, the catheter was removed by the primary team and a voiding trial was tried and over the last few days, the patient has had increased difficulty trying to empty his bladder. Several attempts were made to try to place a catheter by nursing today and were unsuccessful. I tried placing a Coude catheter as well and met resistant in the area of the bulbar urethra raising concern either for stricture or false passage. It was therefore recommended that the above listed procedure be performed to identify the cause of the obstruction and try to get a catheter in over a wire. DESCRIPTION OF PROCEDURE: The patient was prepped and draped in the usual sterile fashion. Lidocaine gel was injected into the patient's urethra. I then went in with a flexible cystoscope and within the area of the bulbous urethra, there was a dense ureteral stricture. I could not negotiate the scope past the stricture. I then advanced an Amplatz superstiff wire past the stricture and into the bladder. Once the wire was advanced into the bladder, I was then able to advance slowly the scope into the bladder. The bladder was briefly examined and no notable abnormalities were seen. The scope was then withdrawn and the wire was utilized to dilate the bulbous ureteral stricture to #22-American using Cook dilators. Of note, the stricture was felt to be moderately dense, it was not very easy to dilate the stricture. The #22-American dilator was then removed and I advanced an #18-American [place] Pass tip catheter over the wire and into the bladder. The balloon was filled with 10 mL of sterile water and then the wire was removed and the catheter was connected to gravity drainage. Subsequently there was outflow of 600 mL of clear yellow urine. This marked the conclusion of the procedure. The patient tolerated the procedure well. ESTIMATED BLOOD LOSS: 0 mL. COMPLICATIONS: None. SPECIMENS: None. PLAN: The patient's catheter will be left in place through the time of discharge from the hospital. Upon discharge from the hospital, he will get an appointment to be seen by the urologist hopefully within a week or two after discharge for possible catheter removal and voiding trial. PETE
[2016-03-07] MEDS: PANTOPRAZOLE 40MG TAB (PROTONIX) PO SCH (09:46)
[2016-03-07] MEDS: TAMSULOSIN 0.4 MG CAP PO SCH (09:46)
[2016-03-07] MEDS: METOPROLOL TARTRATE 100 MG TAB PO SCH ×2 (09:49→20:29)
[2016-03-07] MEDS: APIXABAN 5 MG TAB (ELIQUIS) PO SCH ×2 (13:08→20:29)
[2016-03-07 14:00] VITALS: BP 121/73
--- NOTE | 2016-03-07 14:09 | IPNPDOC ---
Text Note Date of Service The patient was seen on 03/07/16 at 14:06. NOTE Subjective: Patient had difficulty sleeping last night. 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 Still appears confused. Denies CP/SOB/ palpitations. Objective: Vitals: (see below) General: No acute distress, laying comfortably in bed. AAOx3. Confused. HEENT: Moist mucous membranes. Neck: No JVD or lymphadenopathy. Cardiac: Irregularly irregular, No murmurs Pulm: Diminished breath sounds and coarse crackles at the bases b/l. No wheezing , rhonchi Abd: NT/ND + BS Ext: 1+ pitting edema BLE. Labs (see below) Images: CT Head 02/19/16 IMPRESSION: 1. Small vessel ischemic disease. 2. Moderate volume loss. CXR 02/21/16 Right jugular catheter with tip in SVC unchanged. Sternotomy wires are seen. There is cardiomegaly. Elevation of the left diaphragm and some vascular redistribution and venous hypertension noted. 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 There is some increasing air space opacity in the right medial base and above the left diaphragm suggesting some atelectasis or alveolar infiltrate/edema. Left effusion suspected versus scar. No gross right effusion. No other change. Assessment/Plan 1. Unintentional overdose of BB,CCB,ACEi, Eliquis - initially admitted to ICU. s /p distributive shock; off levophed and dopamine. s/p glucagon drip. 2. AF with RVR; Cont Metoprolol, Cardizem, Eliquis. HR better controlled. 3. Hypoxia 2/2 pulmonary congestion from aggressive volume resuscitation during initial presentation. Resolved. s/p IV lasix. 4. Chronic anemia - no acute hemorrhage. Hb stable, cont to monitor 5. Carotid stenosis s/p CEA. on ASA/statin 6. CAD s/p cabg - on asa, statin, BB 7. Dementia with delirium. Likely has a UTI and he is on Cipro. 8. Urinary retention - Apparently had a Quintanilla placed at a different institution , with plan to follow-up to urology prior to his admission. Dr. Conti had performed a cystoscopy at bedside with a bulbous urethral stricture noted. Quintanilla is in place now. Cipro 500mg BID x 7 days given instrumentation per Urology. Will need outpt f/u. 9. Fluid retention - Start lasix. Clear by psychiatry and PT. Pending PFS recommendations for home assistance. DVT prophy: On eliquis VS,Fishbone, I+O VS, Fishbone, I+O Laboratory Tests 03/07/16 05:43 Calcium Level 8.6 L, Red Blood Count 3.40 L, Mean Corpuscular Volume 100.8 H, Mean Corpuscular Hemoglobin 33.2 H, Mean Corpuscular Hemoglobin Concent 33.0, Red Cell Distribution Width 14.4 Vital Signs Date Time Temp Pulse Resp B/P Pulse Ox O2 Delivery O2 Flow Rate FiO2 03/07/16 13:19 Nasal Cannula 03/07/16 09:49 61 117/64 03/07/16 06:00 95.3 17 100 2.0 I&O- Last 24 Hours up to 6 AM 03/07/16 05:59 Intake Total 420 ml Output Total 875 ml Balance -455 ml NGOC BUITRAGO MD Mar 07, 2016 14:09
[2016-03-07] MEDS ORDERED: FUROSEMIDE 20 MG/2 ML VIAL (J1940) IV ONE (14:15)
[2016-03-07] MEDS ORDERED: zolPIDEM TARTRATE 5 MG TAB PO PRN (14:15)
[2016-03-07] MEDS: MEMANTINE 5MG TABLET (NAMENDA) PO SCH (20:29)
[2016-03-07 22:00] VITALS: BP 131/64
[2016-03-08] MEDS: CIPROFLOXACIN 500 MG TAB PO SCH ×2 (06:06→17:23)
[2016-03-08 06:10] VITALS: BP 151/59
[2016-03-08 06:28] LABS: MEAN CORPUSCULAR HEMOGLOBIN 31.6 pg (27.0-33.0); MEAN CORPUSCULAR HGB CONC 31.5 g/dl (32.0-36.5); MEAN CORPUSCULAR VOLUME 100.5 fl (80.0-96.0); RED CELL DISTRIBUTION WIDTH 14.5 % (11.5-14.5); WHITE BLOOD COUNT 5.3 K/mm3 (4.0-10.0)
[2016-03-08 07:05] LABS: ALBUMIN 2.8 GM/DL (3.2-5.2); ALBUMIN/GLOBULIN RATIO 0.78 (1.00-1.93); BILIRUBIN,TOTAL 0.5 MG/DL (0.2-1.0); CALCIUM LEVEL 8.4 MG/DL (8.8-10.2); CREATININE FOR GFR 1.53 MG/DL (0.70-1.30); GLOMERULAR FILTRATION RATE 47.1 (>42); POTASSIUM SERUM 4.2 MEQ/L (3.5-5.1); TOTAL PROTEIN 6.4 GM/DL (6.4-8.2)
[2016-03-08] MEDS ORDERED: FUROSEMIDE 20 MG TAB PO SCH (09:00)
[2016-03-08] MEDS: TAMSULOSIN 0.4 MG CAP PO SCH (09:50)
[2016-03-08] MEDS: PANTOPRAZOLE 40MG TAB (PROTONIX) PO SCH (09:51)
[2016-03-08] MEDS: APIXABAN 5 MG TAB (ELIQUIS) PO SCH ×2 (09:51→20:13)
[2016-03-08] MEDS: MEMANTINE 5MG TABLET (NAMENDA) PO SCH ×2 (09:51→20:13)
[2016-03-08] MEDS: METOPROLOL TARTRATE 100 MG TAB PO SCH ×2 (09:53→20:18)
--- NOTE | 2016-03-08 13:28 | IPNPDOC ---
Text Note Date of Service The patient was seen on 03/08/16 at 13:26. NOTE Subjective: Patient slept well last night. 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 Still appears confused. Denies CP/SOB/ palpitations. No changes from yesterday. Objective: Vitals: (see below) General: No acute distress, laying comfortably in bed. AAOx3. Confused. HEENT: Moist mucous membranes. Neck: No JVD or lymphadenopathy. Cardiac: Irregularly irregular, No murmurs Pulm: Diminished breath sounds and coarse crackles at the bases b/l. No wheezing , rhonchi Abd: NT/ND + BS Ext: 1+ pitting edema BLE. Labs (see below) Images: CT Head 02/19/16 IMPRESSION: 1. Small vessel ischemic disease. 2. Moderate volume loss. CXR 02/21/16 Right jugular catheter with tip in SVC unchanged. Sternotomy wires are seen. There is cardiomegaly. Elevation of the left diaphragm and some vascular redistribution and venous hypertension noted. 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 There is some increasing air space opacity in the right medial base and above the left diaphragm suggesting some atelectasis or alveolar infiltrate/edema. Left effusion suspected versus scar. No gross right effusion. No other change. Assessment/Plan 1. Unintentional overdose of BB,CCB,ACEi, Eliquis - initially admitted to ICU. s /p distributive shock; off levophed and dopamine. s/p glucagon drip. 2. AF with RVR; Cont Metoprolol, Cardizem, Eliquis. HR controlled. 3. Hypoxia 2/2 pulmonary congestion from aggressive volume resuscitation during initial presentation. Resolved. s/p IV lasix. 4. Chronic anemia - no acute hemorrhage. Hb stable, cont to monitor 5. Carotid stenosis s/p CEA. on ASA/statin 6. CAD s/p cabg - on asa, statin, BB 7. Dementia with delirium. Likely has a UTI and he is on Cipro. 8. Urinary retention - Apparently had a Quintanilla placed at a different institution , with plan to follow-up to urology prior to his admission. Dr. Conti had performed a cystoscopy at bedside with a bulbous urethral stricture noted. Quintanilla is in place now. Cipro 500mg BID x 7 days given instrumentation per Urology. Will need outpt f/u. 9. Fluid retention - Start lasix. Initially clear by psychiatry and PT. Will need to obtain a psych re-consult given his baseline dementia, and current confusion. DVT prophy: On eliquis VS,Fishbone, I+O VS, Fishbone, I+O Laboratory Tests 03/08/16 06:08 Calcium Level 8.4 L, Aspartate Amino Transf (AST/SGOT) 22, Alanine Aminotransferase (ALT/SGPT) 33, Alkaline Phosphatase 129 H, Total Bilirubin 0.5 , Total Protein 6.4, Albumin 2.8 L, Red Blood Count 3.55 L, Mean Corpuscular Volume 100.5 H, Mean Corpuscular Hemoglobin 31.6, Mean Corpuscular Hemoglobin Concent 31.5 L, Red Cell Distribution Width 14.5 Vital Signs Date Time Temp Pulse Resp B/P Pulse Ox O2 Delivery O2 Flow Rate FiO2 03/08/16 12:34 61 123/55 03/08/16 09:50 Room Air 03/08/16 06:10 96.8 18 92 1.0 I&O- Last 24 Hours up to 6 AM 03/08/16 06:00 Intake Total 1240 ml Output Total 2225 ml Balance -985 ml NGOC BUITRAGO MD Mar 08, 2016 13:28
[2016-03-08 14:00] VITALS: BP 95/59
[2016-03-08] MEDS: ACETAMINOPHEN TAB 650MG DOSE (2X325MG) PO PRN (20:13)
[2016-03-08 20:15] VITALS: BP 152/74
[2016-03-09 05:00] VITALS: BP 130/71
[2016-03-09 06:25] LABS: ALBUMIN 2.9 GM/DL (3.2-5.2); ALBUMIN/GLOBULIN RATIO 0.69 (1.00-1.93); BILIRUBIN,TOTAL 0.4 MG/DL (0.2-1.0); CALCIUM LEVEL 8.3 MG/DL (8.8-10.2); CREATININE FOR GFR 1.75 MG/DL (0.70-1.30); GLOMERULAR FILTRATION RATE 40.3 (>42); POTASSIUM SERUM 4.7 MEQ/L (3.5-5.1); TOTAL PROTEIN 7.1 GM/DL (6.4-8.2)
[2016-03-09 06:27] LABS: MEAN CORPUSCULAR HEMOGLOBIN 32.4 pg (27.0-33.0); MEAN CORPUSCULAR HGB CONC 32.2 g/dl (32.0-36.5); MEAN CORPUSCULAR VOLUME 100.5 fl (80.0-96.0); RED CELL DISTRIBUTION WIDTH 13.8 % (11.5-14.5); WHITE BLOOD COUNT 4.8 K/mm3 (4.0-10.0)
[2016-03-09] MEDS: CIPROFLOXACIN 500 MG TAB PO SCH ×2 (06:37→17:18)
[2016-03-09] MEDS: APIXABAN 5 MG TAB (ELIQUIS) PO SCH ×2 (09:20→20:43)
[2016-03-09] MEDS: MEMANTINE 5MG TABLET (NAMENDA) PO SCH ×2 (09:20→20:42)
[2016-03-09] MEDS: TAMSULOSIN 0.4 MG CAP PO SCH (09:20)
[2016-03-09] MEDS: PANTOPRAZOLE 40MG TAB (PROTONIX) PO SCH (09:20)
[2016-03-09] MEDS: METOPROLOL TARTRATE 100 MG TAB PO SCH ×2 (09:28→20:43)
--- NOTE | 2016-03-09 11:43 | IPNPDOC ---
Text Note Date of Service The patient was seen on 03/09/16 at 11:22. NOTE Subjective: Patient slept well last night. 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 Still appears confused. Denies CP/SOB/ palpitations. No changes from yesterday. Objective: Vitals: (see below) General: No acute distress, laying comfortably in bed. AAOx3. Confused. HEENT: Moist mucous membranes. Neck: No JVD or lymphadenopathy. Cardiac: Irregularly irregular, No murmurs Pulm: Diminished breath sounds and coarse crackles at the bases b/l. No wheezing , rhonchi Abd: NT/ND + BS Ext: 1+ pitting edema BLE. Labs (see below) Images: CT Head 02/19/16 IMPRESSION: 1. Small vessel ischemic disease. 2. Moderate volume loss. CXR 02/21/16 Right jugular catheter with tip in SVC unchanged. Sternotomy wires are seen. There is cardiomegaly. Elevation of the left diaphragm and some vascular redistribution and venous hypertension noted. 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 There is some increasing air space opacity in the right medial base and above the left diaphragm suggesting some atelectasis or alveolar infiltrate/edema. Left effusion suspected versus scar. No gross right effusion. No other change. Assessment/Plan 1. Unintentional overdose of BB,CCB,ACEi, Eliquis - initially admitted to ICU. s /p distributive shock; off levophed and dopamine. s/p glucagon drip. 2. AF with RVR; Cont Metoprolol, Cardizem, Eliquis. HR controlled. 3. Hypoxia 2/2 pulmonary congestion from aggressive volume resuscitation during initial presentation. Resolved. s/p IV lasix. 4. Chronic anemia - no acute hemorrhage. Hb stable, cont to monitor 5. Carotid stenosis s/p CEA. on ASA/statin 6. CAD s/p cabg - on asa, statin, BB 7. Dementia with delirium. Likely has a UTI and he is on Cipro. 8. Urinary retention - Apparently had a Quintanilla placed at a different institution , with plan to follow-up to urology prior to his admission. Dr. Conti had performed a cystoscopy at bedside with a bulbous urethral stricture noted. Quintanilla is in place now. Cipro 500mg BID x 7 days given instrumentation per Urology. Will need outpt f/u. 9. Fluid retention - Start lasix. Initially clear by psychiatry and PT. Spoke with Dr. Rodgers for psych re- consult given his baseline dementia, and current confusion. DVT prophy: On eliquis VS,Fishbone, I+O VS, Fishbone, I+O Laboratory Tests 03/09/16 05:51 Calcium Level 8.3 L, Aspartate Amino Transf (AST/SGOT) 23, Alanine Aminotransferase (ALT/SGPT) 29, Alkaline Phosphatase 130 H, Total Bilirubin 0.4 , Total Protein 7.1, Albumin 2.9 L, Red Blood Count 3.59 L, Mean Corpuscular Volume 100.5 H, Mean Corpuscular Hemoglobin 32.4, Mean Corpuscular Hemoglobin Concent 32.2, Red Cell Distribution Width 13.8 Vital Signs Date Time Temp Pulse Resp B/P Pulse Ox O2 Delivery O2 Flow Rate FiO2 03/09/16 09:28 64 112/62 03/09/16 09:20 Room Air 03/09/16 05:00 98.0 16 99 1.0 I&O- Last 24 Hours up to 6 AM 03/09/16 05:59 Intake Total 1040 ml Output Total 1025 ml Balance 15 ml NGOC BUITRAGO MD Mar 09, 2016 11:43
[2016-03-09 14:00] VITALS: BP 150/74
--- NOTE | 2016-03-09 17:53 | CR ---
DATE OF CONSULTATION: 03/09/2016 This is a 80-year-old white male that lives by himself. The patient took an overdose of some of his medications, which lead to a fall and the hospitalization. He was seen by Dr. Hutchinson on 02/27/2016. The patient himself is a poor historian. I cannot find anything in the chart regarding previous cognitive functioning. I am asked to assess the patient regarding his current mental health competency. The patient has been making bizarre statements, such as wanting a jules pass so that he can have his eyes examined. The patient wants to leave the hospital but this clearly would not be safe, which will be discussed below. The patient has been treated for a recent urinary tract infection (UTI). The patient states that he does have a sister, Su, who lives here in [place] and visits frequently, who might be a source of further information. The patient is a college graduate. 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 He is vague about his life events after that. He claims that he worked up in the [employer]. He admits that his memory has been problematic the last five years and has trouble remembering new things. MENTAL STATUS EXAMINATION: The patient does appear to be alert and he knows his date of ; however, not the current date. He describes it as being either February or March 1914. He gives the location as [place]. He knows that this is a hospital but cannot recall the name. His interpretation of proverbs are quite concrete. His short-term memory is quite impaired. He recalls only one out of three objects after five minutes. His speech is loose and disjointed. 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 He denies feeling depressed or feeling suicidal. He denies hearing any voices. No overt signs of paranoia. Insight appears poor. Judgment appears poor, placing him at risk and not safe for discharge, in my opinion. DIAGNOSIS: Delirium with possible dementia. PLAN: The patient does not have the competency to sign out of the hospital against medical advice, in my opinion. No need for any psychotropics, however, as the patient appears to be in good behavioral control.
[2016-03-09 22:00] VITALS: BP 117/63
[2016-03-10 05:59] LABS: MEAN CORPUSCULAR HEMOGLOBIN 31.9 pg (27.0-33.0); MEAN CORPUSCULAR HGB CONC 31.9 g/dl (32.0-36.5); MEAN CORPUSCULAR VOLUME 100.2 fl (80.0-96.0); RED CELL DISTRIBUTION WIDTH 14.7 % (11.5-14.5); WHITE BLOOD COUNT 4.4 K/mm3 (4.0-10.0)
[2016-03-10 06:00] VITALS: BP 174/70
[2016-03-10 06:22] LABS: ALBUMIN 2.7 GM/DL (3.2-5.2); ALBUMIN/GLOBULIN RATIO 0.64 (1.00-1.93); BILIRUBIN,TOTAL 0.4 MG/DL (0.2-1.0); CALCIUM LEVEL 8.3 MG/DL (8.8-10.2); CREATININE FOR GFR 1.55 MG/DL (0.70-1.30); GLOMERULAR FILTRATION RATE 46.4 (>42); POTASSIUM SERUM 4.3 MEQ/L (3.5-5.1); TOTAL PROTEIN 6.9 GM/DL (6.4-8.2)
[2016-03-10] MEDS: CIPROFLOXACIN 500 MG TAB PO SCH ×2 (06:31→17:38)
[2016-03-10] MEDS: MEMANTINE 5MG TABLET (NAMENDA) PO SCH ×2 (09:00→21:31)
[2016-03-10] MEDS: PANTOPRAZOLE 40MG TAB (PROTONIX) PO SCH (09:01)
[2016-03-10] MEDS: METOPROLOL TARTRATE 100 MG TAB PO SCH ×2 (09:01→21:32)
[2016-03-10] MEDS: TAMSULOSIN 0.4 MG CAP PO SCH (09:01)
[2016-03-10] MEDS: ACETAMINOPHEN TAB 650MG DOSE (2X325MG) PO PRN (09:01)
[2016-03-10] MEDS: APIXABAN 5 MG TAB (ELIQUIS) PO SCH ×2 (09:01→21:31)
[2016-03-10 14:00] VITALS: BP 107/47
--- NOTE | 2016-03-10 14:07 | IPNPDOC ---
Text Note Date of Service The patient was seen on 03/10/16 at 14:05. NOTE Subjective: No acute changes overnight. Objective: Vitals: (see below) General: No acute distress, laying comfortably in bed. AAOx3. HEENT: Moist mucous membranes. Neck: No JVD or lymphadenopathy. Cardiac: Irregularly irregular, No murmurs Pulm: Diminished breath sounds and coarse crackles at the bases b/l. No wheezing , rhonchi Abd: NT/ND + BS Ext: 1+ pitting edema BLE. Labs (see below) Images: CT Head 02/19/16 IMPRESSION: 1. Small vessel ischemic disease. 2. Moderate volume loss. CXR 02/21/16 Right jugular catheter with tip in SVC unchanged. Sternotomy wires are seen. There is cardiomegaly. Elevation of the left diaphragm and some vascular redistribution and venous hypertension noted. 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 There is some increasing air space opacity in the right medial base and above the left diaphragm suggesting some atelectasis or alveolar infiltrate/edema. Left effusion suspected versus scar. No gross right effusion. No other change. Assessment/Plan 1. Unintentional overdose of BB,CCB,ACEi, Eliquis - initially admitted to ICU. s /p distributive shock; off levophed and dopamine. s/p glucagon drip. 2. AF with RVR; Cont Metoprolol, Cardizem, Eliquis. HR controlled. 3. Hypoxia 2/2 pulmonary congestion from aggressive volume resuscitation during initial presentation. Resolved. s/p IV lasix. 4. Chronic anemia - no acute hemorrhage. Hb stable, cont to monitor 5. Carotid stenosis s/p CEA. on ASA/statin 6. CAD s/p cabg - on asa, statin, BB 7. Dementia with delirium. Likely has a UTI and he is on Cipro. 8. Urinary retention - Apparently had a Quintanilla placed at a different institution , with plan to follow-up to urology prior to his admission. Dr. Conti had performed a cystoscopy at bedside with a bulbous urethral stricture noted. Quintanilla is in place now. Cipro 500mg BID x 7 days given instrumentation per Urology. Will need outpt f/u. 9. Fluid retention - Start lasix. Initially clear by psychiatry and PT. Spoke with Dr. Rodgers for psych re- consult, who does not believe patient has capacity. Will need placement. 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 Patient has no family. We'll place under [facility]. DVT prophy: On eliquis VS,Fishbone, I+O VS, Fishbone, I+O Laboratory Tests 03/10/16 05:38 Calcium Level 8.3 L, Aspartate Amino Transf (AST/SGOT) 33, Alanine Aminotransferase (ALT/SGPT) 32, Alkaline Phosphatase 126 H, Total Bilirubin 0.4 , Total Protein 6.9, Albumin 2.7 L, Red Blood Count 3.41 L, Mean Corpuscular Volume 100.2 H, Mean Corpuscular Hemoglobin 31.9, Mean Corpuscular Hemoglobin Concent 31.9 L, Red Cell Distribution Width 14.7 H Vital Signs Date Time Temp Pulse Resp B/P Pulse Ox O2 Delivery O2 Flow Rate FiO2 03/10/16 12:00 60 95/50 03/10/16 08:00 Room Air 03/10/16 06:00 98.2 18 95 03/09/16 05:00 1.0 I&O- Last 24 Hours up to 6 AM 03/10/16 06:00 Intake Total 1040 ml Output Total 950 ml Balance 90 ml NGOC BUITRAGO MD Mar 10, 2016 14:07
[2016-03-10 22:00] VITALS: BP 122/56
[2016-03-11] MEDS: CIPROFLOXACIN 500 MG TAB PO SCH ×2 (05:30→17:56)
[2016-03-11 06:00] VITALS: BP 118/78
[2016-03-11 06:21] LABS: MEAN CORPUSCULAR HEMOGLOBIN 32.5 pg (27.0-33.0); MEAN CORPUSCULAR HGB CONC 32.1 g/dl (32.0-36.5); MEAN CORPUSCULAR VOLUME 101.4 fl (80.0-96.0); RED CELL DISTRIBUTION WIDTH 13.6 % (11.5-14.5); WHITE BLOOD COUNT 5.7 K/mm3 (4.0-10.0)
[2016-03-11 06:41] LABS: ALBUMIN 2.8 GM/DL (3.2-5.2); ALBUMIN/GLOBULIN RATIO 0.68 (1.00-1.93); BILIRUBIN,TOTAL 0.4 MG/DL (0.2-1.0); CALCIUM LEVEL 8.2 MG/DL (8.8-10.2); CREATININE FOR GFR 1.57 MG/DL (0.70-1.30); GLOMERULAR FILTRATION RATE 45.7 (>42); POTASSIUM SERUM 4.7 MEQ/L (3.5-5.1); TOTAL PROTEIN 6.9 GM/DL (6.4-8.2)
[2016-03-11 10:37] VITALS: BP 132/63
[2016-03-11] MEDS: TAMSULOSIN 0.4 MG CAP PO SCH (10:50)
[2016-03-11] MEDS: METOPROLOL TARTRATE 100 MG TAB PO SCH ×2 (10:50→20:13)
[2016-03-11] MEDS: APIXABAN 5 MG TAB (ELIQUIS) PO SCH ×2 (10:50→20:13)
[2016-03-11] MEDS: PANTOPRAZOLE 40MG TAB (PROTONIX) PO SCH (10:51)
[2016-03-11] MEDS: MEMANTINE 5MG TABLET (NAMENDA) PO SCH ×2 (10:51→20:13)
[2016-03-11 12:31] VITALS: BP 147/76
[2016-03-11 18:19] VITALS: BP 123/83
[2016-03-11] MEDS: ACETAMINOPHEN TAB 650MG DOSE (2X325MG) PO PRN (20:13)
[2016-03-12 01:10] VITALS: BP 137/77
[2016-03-12] MEDS: CIPROFLOXACIN 500 MG TAB PO SCH (06:13)
[2016-03-12 06:41] LABS: MEAN CORPUSCULAR HGB CONC 32.1 g/dl (32.0-36.5); MEAN CORPUSCULAR VOLUME 99.9 fl (80.0-96.0); RED CELL DISTRIBUTION WIDTH 13.8 % (11.5-14.5); WHITE BLOOD COUNT 5.3 K/mm3 (4.0-10.0)
[2016-03-12 07:00] VITALS: BP 141/71
[2016-03-12 07:03] LABS: ALBUMIN/GLOBULIN RATIO 0.71 (1.00-1.93); BILIRUBIN,TOTAL 0.6 MG/DL (0.2-1.0); CALCIUM LEVEL 8.4 MG/DL (8.8-10.2); CREATININE FOR GFR 1.56 MG/DL (0.70-1.30); GLOMERULAR FILTRATION RATE 46.1 (>42); POTASSIUM SERUM 4.5 MEQ/L (3.5-5.1); TOTAL PROTEIN 7.2 GM/DL (6.4-8.2)
[2016-03-12] MEDS: METOPROLOL TARTRATE 100 MG TAB PO SCH ×2 (09:00→19:49)
[2016-03-12] MEDS: ACETAMINOPHEN TAB 650MG DOSE (2X325MG) PO PRN (09:20)
[2016-03-12] MEDS: TAMSULOSIN 0.4 MG CAP PO SCH (09:20)
[2016-03-12] MEDS: APIXABAN 5 MG TAB (ELIQUIS) PO SCH ×2 (09:20→19:48)
[2016-03-12] MEDS: MEMANTINE 5MG TABLET (NAMENDA) PO SCH ×2 (09:20→19:48)
[2016-03-12] MEDS: PANTOPRAZOLE 40MG TAB (PROTONIX) PO SCH (09:20)
[2016-03-12] MEDS ORDERED: HALOPERIDOL 5 MG/ML VIAL (J1630) IV PRN (14:00)
[2016-03-13 07:00] VITALS: BP 135/63
[2016-03-13 07:19] LABS: MEAN CORPUSCULAR HEMOGLOBIN 31.8 pg (27.0-33.0); MEAN CORPUSCULAR HGB CONC 31.5 g/dl (32.0-36.5); MEAN CORPUSCULAR VOLUME 100.9 fl (80.0-96.0); RED CELL DISTRIBUTION WIDTH 13.8 % (11.5-14.5); WHITE BLOOD COUNT 5.4 K/mm3 (4.0-10.0)
[2016-03-13 07:33] LABS: ALBUMIN 2.8 GM/DL (3.2-5.2); ALBUMIN/GLOBULIN RATIO 0.64 (1.00-1.93); BILIRUBIN,TOTAL 0.4 MG/DL (0.2-1.0); CALCIUM LEVEL 8.6 MG/DL (8.8-10.2); CREATININE FOR GFR 1.41 MG/DL (0.70-1.30); GLOMERULAR FILTRATION RATE 51.8 (>42); POTASSIUM SERUM 4.1 MEQ/L (3.5-5.1); TOTAL PROTEIN 7.2 GM/DL (6.4-8.2)
[2016-03-13 08:19] VITALS: BP 135/63
[2016-03-13] MEDS: METOPROLOL TARTRATE 100 MG TAB PO SCH (08:19)
[2016-03-13] MEDS: TAMSULOSIN 0.4 MG CAP PO SCH (08:19)
[2016-03-13] MEDS: APIXABAN 5 MG TAB (ELIQUIS) PO SCH (08:19)
[2016-03-13] MEDS: PANTOPRAZOLE 40MG TAB (PROTONIX) PO SCH (08:19)
[2016-03-13] MEDS: MEMANTINE 5MG TABLET (NAMENDA) PO SCH (08:20)
[2016-03-13] MEDS: ACETAMINOPHEN TAB 650MG DOSE (2X325MG) PO PRN (08:20)
[2016-03-13] MEDS ORDERED: LOPR100T PO (10:20)
[2016-03-13] MEDS ORDERED: CARD120C3 PO (10:20)
--- NOTE | 2016-03-13 19:27 | DSES ---
DATE OF ADMISSION: 02/19/2016 DATE OF DISCHARGE: 03/13/2016 ATTENDING PHYSICIAN: Malina Lancaster MD, Triston Sanford MD, Varun Alvarado MD PRIMARY CARE PROVIDER: Unknown. REFERRING PHYSICIAN: None. CONSULTING PHYSICIANS: Greg Conti MD, Ed Rodgers MD, Dr. Obregon, Samm Hutchinson MD, Adan Nuñez MD CONDITION ON DISCHARGE: Stable. FINAL DIAGNOSES: Unintentional overdose of beta blockers, calcium channel blockers, angiotensin-converting enzyme (JM) inhibitors and Eliquis leading to distributive shock requiring IV pressors. PROCEDURES: The patient had a right internal jugular catheter placed on 02/19/2016. The patient had a cystoscopy with dilation of a urethral stricture and a catheter placement done on 03/07/[address] Conti. HISTORY OF PRESENT ILLNESS: The patient is a 80-year-old male with a history of atrial fibrillation, hyperlipidemia, carotid artery disease, status post left carotid endarterectomy five days prior to admission, benign prostatic hypertrophy (BPH), hypertension, dementia, coronary artery disease, status post coronary artery bypass graft (CABG) who presented to the emergency room after a fall. He states that he was sleeping in his rocking chair where he had been sleeping for the last four weeks secondary to back pain. He noted the phone rang and went to go answer it. While he was getting up to answer it he had tripped and fallen. He notes that he was experiencing some lightheadedness but denies any chest pain or dizziness. The patient's friend came to see him and noted that he seemed to be a little unsteady in his gait and found that he had abrasions on the back of his head. As per the patient's friend, the patient did not seem to be his normal self. The patient's friend called the registered nurse and they advised him to come to the emergency room. The patient was taken to the emergency room at [place], however, the CT scanner was not working so he was transferred to [place]. The patient noted that he has been having some confusion and may have been taking an incorrect amount of medications. Upon evaluation of the patient's pill box he had taken about 11 pills of Eliquis, 5 mg, four tablets of simvastatin 20 mg, four tablets of Flomax 0.4 mg, 11 tablets of metoprolol 50 mg and four tablets of lisinopril 10 mg, four tablets of Cardizem 40 mg, seven tablets of Namenda 28 mg. In the emergency room the patient was found to have a blood pressure of 69/32, heart rate of 40. He was saturating at about 97% on room air with a respiratory rate of 18. The patient was admitted to the ICU for hypotension and bradycardia, likely secondary to distributive shock from medication overdose. The patient was put on IV fluid hydration and IV pressor support. Blood pressure has since normalized. HOSPITAL COURSE: 1. Hypotension and bradycardia likely secondary to distributive shock, likely secondary to medication overdose. The patient was given IV fluids and IV pressor support. The patient's blood pressure has normalized. Was down-graded to medical-surgical floor. 2. Atrial fibrillation with rapid ventricular response (RVR). Medication metoprolol, Cardizem and Eliquis have been restarted. Heart rate has been well controlled. 3. Hypoxia secondary to pulmonary congestion from the aggressive volume resuscitation during initial presentation. Initially this has resolved. The patient initially received high amounts of IV fluid hydration because of hypotension. He has received Lasix after that acute event and he is now euvolemic. 4. Chronic anemia. No acute hemorrhage. Hemoglobin has remained stable. 5. Carotid stenosis. Status post carotid endarterectomy. He is on aspirin and statin. 6. Coronary artery disease. Status post coronary artery bypass graft (CABG). On aspirin, statin and beta kathleen. 7. Dementia with delirium. The patient initially had a mild urinary tract infection was treated with ciprofloxacin. He has completed the course of ciprofloxacin. 8. Urinary retention. The patient had a Quintanilla catheter at different institutions. The patient went to the OR with Dr. Conti. Found that he had a ureteral stricture that was dilated. The patient is going to be discharged home with a Quintanilla catheter and to be followed up with urology as an outpatient. 9. Fluid retention. He has been put on Lasix. 10. Deep venous thrombosis (DVT) prophylaxis. He is anticoagulation with Eliquis for atrial fibrillation. DISCHARGE MEDICATIONS: The patient has been discharged to home with: - Eliquis 5 mg by mouth twice a day - vitamin D3 400 units by mouth every day - vitamin B12 1000 units intramuscularly every month - memantine 28 mg by mouth nightly - Tamsulosin 0.4 mg by mouth every day - Cardizem 120 mg by mouth every day extended release - metoprolol tartrate 100 mg by mouth twice a day DISCHARGE INSTRUCTIONS: The patient was advised to followup with his primary care provider, urology, cardiology, within the next one to two weeks. He has been advised to confirm scheduled appointment and return to the emergency room if experiencing problems. He has been advised to remain compliant with treatment plan and medications. TIME SPENT ON DISCHARGE: 35 minutes.
== END 2016-03-13 11:37 | disposition home health service (06) | DRG 917 ==
LOC: M ED 10:41 → M ED INP 13:24 → M ICU 16:08 → M PCU 02-24 15:15 → M MSPAV 02-26 14:57 → M PCU 02-27 23:37 → M MS5PR 03-02 12:39 → M MSPAV 03-04 16:50 → M MS5PR 03-11 14:15
PROVIDERS: ADMIT Hospitalist; ATTEND Internal Medicine
PROC: 05HM33Z Insertion of Infusion Device into Right Internal Jugular Vein, Percutaneous Approach (ICD-10-PCS; principal; 2016-02-19)
PROC: 0T7D3DZ Dilation of Urethra with Intraluminal Device, Percutaneous Approach (ICD-10-PCS; 2016-03-05)
DX: T44.7X1A Poisoning by beta-adrenoreceptor antagonists, accidental (unintentional), initial encounter (principal); R57.8 Other shock; N17.9 Acute kidney failure, unspecified; I48.92 Unspecified atrial flutter; I48.2 Chronic atrial fibrillation; E78.5 Hyperlipidemia, unspecified; N40.1 Benign prostatic hyperplasia with lower urinary tract symptoms; I10 Essential (primary) hypertension; T46.1X1A Poisoning by calcium-channel blockers, accidental (unintentional), initial encounter; I25.10 Atherosclerotic heart disease of native coronary artery without angina pectoris; F03.90 Unspecified dementia, unspecified severity, without behavioral disturbance, psychotic disturbance, mood disturbance, and anxiety; R33.9 Retention of urine, unspecified; Z95.1 Presence of aortocoronary bypass graft; R00.1 Bradycardia, unspecified; I73.9 Peripheral vascular disease, unspecified; I95.9 Hypotension, unspecified; S01.81XA Laceration without foreign body of other part of head, initial encounter; W01.0XXA Fall on same level from slipping, tripping and stumbling without subsequent striking against object, initial encounter; Y92.019 Unspecified place in single-family (private) house as the place of occurrence of the external cause; R73.9 Hyperglycemia, unspecified; D64.9 Anemia, unspecified; R09.02 Hypoxemia; I50.9 Heart failure, unspecified; T45.7X1A Poisoning by anticoagulant antagonists, vitamin K and other coagulants, accidental (unintentional), initial encounter; N35.9 Urethral stricture, unspecified; R29.6 Repeated falls; Z79.01 Long term (current) use of anticoagulants; Z72.0 Tobacco use; Y92.009 Unspecified place in unspecified non-institutional (private) residence as the place of occurrence of the external cause; Z79.899 Other long term (current) drug therapy

== ENCOUNTER 2016-04-07 11:44 | Outpatient (RCR) | payer MEDICARE, OTHER ==
[~2016-04-07 11:44] MED LIST: CARD120C3 PO; CYAN1000VL IM; D400400C PO; DILT240C5 PO; ELIQ5TAB PO; FLOM5CAP PO; LISI10TA4 PO; LOPR1TAB7 PO; METO50TA2 PO; NAME28CA PO; SIMV20TA2 PO
== END 2016-04-08 ==
LOC: M PT 11:44
PROVIDERS: ATTEND Obstetrics & Gynecology Obstetrics
DX: Z51.89 Encounter for other specified aftercare (principal); R26.9 Unspecified abnormalities of gait and mobility
CPT/HCPCS: 97161; G8978; G8979

== ENCOUNTER 2016-05-05 09:50 | Outpatient (RCR) | payer MEDICARE, OTHER | END 2016-05-06 | LOC: M PT 09:50 | PROVIDERS: ATTEND Obstetrics & Gynecology Obstetrics | DX: Z51.89 Encounter for other specified aftercare (principal); R26.9 Unspecified abnormalities of gait and mobility ==

== ENCOUNTER 2016-05-22 09:12 | Outpatient (RCR) | payer MEDICARE, OTHER | END 2016-06-06 | LOC: M PT 09:12 | PROVIDERS: ATTEND Obstetrics & Gynecology Obstetrics | DX: Z51.89 Encounter for other specified aftercare (principal); R26.9 Unspecified abnormalities of gait and mobility | CPT/HCPCS: 97110; G8978; G8979; G8980 ==

== ENCOUNTER → 2016-06-09 | Outpatient (CLI) | payer MEDICARE, OTHER ==
[2016-06-09 11:43] LABS: BASO % 0.3 % (0.0-1.0); EOS # 0.2 K/mm3 (0.0-0.50); EOS % 2.2 % (0.0-3.0); LYMPH # 1.4 K/mm3 (1.5-4.5); LYMPH % 15.1 % (24.0-44.0); MEAN CORPUSCULAR HEMOGLOBIN 33.3 pg (27.0-33.0); MONO # 0.6 K/mm3 (0.0-0.8); MONO % 7.4 % (0.0-5.0); NEUTROPHILS # 6.2 K/mm3 (1.8-7.7); NEUTROPHILS % 73.2 % (36.0-66.0); RED CELL DISTRIBUTION WIDTH 14.2 % (11.5-14.5); WHITE BLOOD COUNT 8.5 K/mm3 (4.0-10.0)
[2016-06-09 12:30] LABS: CALCIUM LEVEL 9.2 MG/DL (8.8-10.2); CREATININE FOR GFR 1.51 MG/DL (0.70-1.30); GLOMERULAR FILTRATION RATE 47.8 (>42); POTASSIUM SERUM 4.5 MEQ/L (3.5-5.1)
== END ==
LOC: M LAB 10:57
PROVIDERS: ATTEND Obstetrics & Gynecology Obstetrics
DX: I10 Essential (primary) hypertension (principal)

== ENCOUNTER → 2016-08-22 | Outpatient (REF) | payer MEDICARE, OTHER ==
[~2016-08-22] MED LIST changes: -DILT240C5 PO; +DILT240C75 PO
== END ==
LOC: M LAB REF 15:39
PROVIDERS: ATTEND Physician Assistant
DX: N99.521 Infection of incontinent external stoma of urinary tract (principal)

== ENCOUNTER → 2016-09-18 | Outpatient (REF) | payer MEDICARE, OTHER ==
[~2016-09-18] MED LIST changes: -METO50TA2 PO; +METO50TA7 PO
== END ==
LOC: M LAB REF 11:50
PROVIDERS: ATTEND Obstetrics & Gynecology Obstetrics
DX: E83.42 Hypomagnesemia (principal)

== ENCOUNTER → 2018-08-31 | Outpatient (REF) | payer MEDICARE, OTHER ==
[~2018-08-31] MED LIST changes: -DILT240C75 PO; +DILT240C82 PO; +FLOM0.4C39 PO; -FLOM5CAP PO
[2018-08-31 18:59] LABS: APPEARANCE, URINE CLEAR (CLEAR); BACTERIA, URINE AUTO NEGATIVE (NEGATIVE); BILIRUBIN, URINE AUTO NEGATIVE (NEGATIVE); BLOOD, URINE BLOOD 2+ (NEGATIVE); COLOR, URINE YELLOW (YELLOW); GLUCOSE, URINE (UA) AUTO NEGATIVE (NEGATIVE); KETONE, URINE AUTO NEGATIVE (NEGATIVE); LEUKOCYTE ESTERASE, URINE AUTO NEGATIVE (NEGATIVE); NITRITE, URINE AUTO NEGATIVE (NEGATIVE); PROTEIN, URINE AUTO 1+ mg/dL (NEGATIVE); RBC, URINE AUTO 27 /HPF (0-3); SPECIFIC GRAVITY URINE AUTO 1.011 (1.002-1.035); SQUAMOUS EPITHELIAL CELL UR AU 0 /HPF (0-6); UROBILINOGEN, URINE AUTO 0.2 mg/dL (0.0-2.0); WBC, URINE AUTO 0 /HPF (0-3)
== END ==
LOC: M SMT 16:57
PROVIDERS: ATTEND Nurse Practitioner Women's Health
DX: N28.89 Other specified disorders of kidney and ureter (principal)
CPT/HCPCS: 81001; 87086; G0463

== ENCOUNTER 2018-12-21 10:35 | Emergency (ER) | payer MEDICARE, OTHER ==
[~2018-12-21] VITALS: Ht 172.7 cm; Wt 59.4 kg
[2018-12-21] MEDS ORDERED: ENSU1LIQ PO (12:36)
[2018-12-21] MEDS ORDERED: MEMA28CA PO (12:36)
[2018-12-21] MEDS ORDERED: EPIN0.3I11 IM (12:36)
[2018-12-21] MEDS ORDERED: CRAN500C5 PO (12:36)
[2018-12-21] MEDS ORDERED: DONE10TA90 PO (12:36)
[2018-12-21] MEDS ORDERED: TERB1CRE2 TOP (12:36)
[2018-12-21] MEDS ORDERED: DOCU100C16 PO (12:36)
[2018-12-21] MEDS ORDERED: PANT40TA3 PO (12:36)
[2018-12-21] MEDS ORDERED: SIMV20TA2 PO (12:36)
[2018-12-21] MEDS ORDERED: FURO20TA2 PO (12:36)
[2018-12-21] MEDS ORDERED: METH-855 PO (12:36)
[2018-12-21 13:38] VITALS: BP 164/68
== END 2018-12-21 13:40 | disposition home or self-care (01) ==
LOC: M ED 10:35
DX: T83.198A Other mechanical complication of other urinary devices and implants, initial encounter (principal); I10 Essential (primary) hypertension; N40.1 Benign prostatic hyperplasia with lower urinary tract symptoms; J44.9 Chronic obstructive pulmonary disease, unspecified; F03.90 Unspecified dementia, unspecified severity, without behavioral disturbance, psychotic disturbance, mood disturbance, and anxiety; Z95.1 Presence of aortocoronary bypass graft; Z87.891 Personal history of nicotine dependence; Z79.01 Long term (current) use of anticoagulants; Z79.899 Other long term (current) drug therapy; Z91.030 Bee allergy status